=== PATIENT | female | born 1995 | race Caucasian/White ===

== ENCOUNTER 2023-09-25 14:00 | Emergency (ER) | payer OTHER, SELFPAY ==
[2023-09-25 14:05] VITALS: BP 147/96; PULSE 64; RESP 16; TEMP 36.9; O2SAT 95; BMI 32.3
--- NOTE | 2023-09-25 14:12 | XR_ITS ---
The [address] [address] Patient Name: KARINE JURADO MRN: [id number] date: 1995 Sex: F Assigned Patient Location: ER Current Patient Location: ER Accession/Order Number: [id number] Exam Date: 09/25/2023 14:58 Report Date: 09/25/2023 15:13 At the request of: NAHUN GOODMAN Procedure: XR lumbar spine 2-3V EXAMINATION: XR lumbar spine 2-3V HISTORY: pain COMPARISON: No relevant comparison available. FINDINGS: BONES: Normal. No significant spondylosis, scoliosis, fracture, or visible bony lesion. DISC SPACES: Normal. No significant disc height narrowing, subluxation, or endplate abnormality. PARASPINOUS: Negative. No paraspinous abnormality is seen. OTHER: Negative. XR/XR lumbar spine 2-3V IMPRESSION: No acute radiographic abnormality Electronically authenticated by: CHIOMA KRISHNA Date: 09/25/2023 15:13
[2023-09-25 15:08] LABS: Bilirubin Urine NEGATIVE (NEGATIVE); Blood Urine NEGATIVE (NEGATIVE); Clarity Urine CLEAR (CLEAR); Color Urine LT. YELLOW (YELLOW); Glucose Urine UA NEGATIVE (NEGATIVE); Ketones Urine NEGATIVE (NEGATIVE); Leukocyte Esterase Urine SMALL (NEGATIVE); Nitrite Urine NEGATIVE (NEGATIVE); Protein Urine NEGATIVE (NEG/TRACE); Specific Gravity Urine <=1.005 (1.005-1.025); Urobilinogen Urine 0.2 EU/dL (0.2-1.0); pH Urine 6.5 (5.0-9.0)
[2023-09-25 15:11] LABS: HCG Qualitative Urine* NEGATIVE (NEGATIVE)
[2023-09-25 15:24] LABS: Bacteria Urine TRACE #/HPF (NONE SEEN); Cast Seen? NONE SEEN #/LPF (NONE SEEN); Crystals Seen? None Seen #/HPF (None Seen); Mucus Urine NONE SEEN (NONE SEEN); RBC Urine 0-2 #/HPF (0-2); Squamous Epithelial Cell Urine FEW #/LPF (NONE/RARE)
[2023-09-25] MEDS: KETOROLAC TROMETHAMINE 60 MG/2 ML VIAL IM (15:33)
--- NOTE | 2023-09-25 15:50 | ED_ITS ---
HPI - Back Pain/Injury General Chief Complaint: Back Pain/Injury Stated Complaint: BACK PAIN/ FALL Time Seen by Provider: 09/25/23 14:06 Source: patient and family Mode of arrival: walk-in Limitations: no limitations History of Present Illness HPI Narrative: 27-year-old female presents with a chief complaint of tailbone injury. Patient states she slipped down cement stairs 2-3 days ago landing on her butt. She st ates she felt fine until the next day. She states she felt a pop yesterday and is now had difficulty sitting. She denies any loss of bowel or bladder function. She is ambulating well. No bruising or ecchymosis is noted on exam. She has tenderness to palpation initially to this area Related Data Previous Rx's Medication Instructions Recorded methocarbamol 500 mg tablet 500 mg PO Q8H PRN pain #14 tabs 09/25/23 Allergies Allergy/AdvReac Type Severity Reaction Status Date / Time No Known Drug Allergies Allergy Verified 09/25/23 14:05 Review of Systems ROS Narrative All Systems are negative except as noted/marked. PFSH PFSH Social History Smoking status: Current every day smoker Exam Narrative Exam Narrative: Nurses note and vital signs reviewed and patient is not hypoxic. General: The patient appears well and in no apparent distress. Patient is resting comfortably on cart. Skin: Warm, dry, no pallor noted. There is no rash noted. Head: Normocephalic, atraumatic Eye: Normal conjunctiva, no drainage, EOMI. PERRL Ears, Nose, Mouth, and Throat: oral mucosa is moist. Nares patent. Mouth without vesicles. Ear canals patent. Tm's without Erythema Back: Tailbone tenderness, no bruising or ecchymosis, non-tender, no CVA tenderness bilaterally to percussion. Musculoskeletal: The patient has no evidence of calf tenderness, no pitting edema, symmetrical pulses noted bilaterally Neurological: A&O x4, normal speech Psychiatric: Cooperative Constitutional Vital Signs, click to edit/add: Last Vital Signs Temp 98.5 F 09/25/23 14:05 Pulse 64 09/25/23 14:05 Resp 16 09/25/23 14:05 BP 147/96 H 09/25/23 14:05 Pulse Ox 95 09/25/23 14:05 Course Vital Signs Vital signs: Vital Signs Temperature 98.5 F 09/25/23 14:05 Pulse Rate 64 09/25/23 14:05 Respiratory Rate 16 09/25/23 14:05 Blood Pressure 147/96 H 09/25/23 14:05 Pulse Oximetry 95 09/25/23 14:05 Temperature 98.5 F 09/25/23 14:05 Pulse Rate 64 09/25/23 14:05 Respiratory Rate 16 09/25/23 14:05 Blood Pressure 147/96 H 09/25/23 14:05 Pulse Oximetry 95 09/25/23 14:05 MDM - Back Pain/Injury Medical Records Attestation: I reviewed the patient's medical records. Medical records narrative: Patient presented here chief complaint tailbone injury. No acute fracture noted on x-ray. Patient was treated as a lumbar strain, tailbone injury. She'll be discharged home with a prescription for Robaxin. Patient is given a work note for today as well. Medicated here in emergency room and Toradol. Patient showed no signs of cauda equina. Examination is benign. Patient told to use rest ice and heat therapy. I also suggested patient to lumbar stretching exercises as well as using a donut pillow to help sit to alleviate some of her tenderness was sitting. Patient presented here chief complaint of tailbone injury. No acute fracture noted on x-ray. Patient was treated as a lumbar strain, tailbone injury. She will be discharged home with a prescription for Robaxin. Patient was given a work note for today as well. Medicated here in the emergency room with Toradol. Patient was discharged patient showed no signs of cauda equina. Examination is benign. Patient told to use rest ice and heat therapy. I also suggested patient do lumbar stretching exercises as well as using a donut to help sit to alleviate some of her tenderness while sitting.Patient verbalized understanding agrees with plan of care Lab Data Attestation: I reviewed the patient's lab results. Labs: Lab Results 09/25/23 Range/Units 14:53 Urine Color Lt. yellow (YELLOW) Urine Clarity Clear (CLEAR) Urine pH 6.5 (5.0-9.0) Ur Specific [place] <=1.005 A (1.005-1.025) Urine Protein Negative (NEG/TRACE) mg/dL Urine Glucose (UA) Negative (NEGATIVE) mg/dL Urine Ketones Negative (NEGATIVE) mg/dL Urine Occult Blood Negative (NEGATIVE) Urine Nitrite Negative (NEGATIVE) Urine Bilirubin Negative (NEGATIVE) Urine Urobilinogen 0.2 (0.2-1.0) EU/dL Ur Leukocyte Esterase Small A (NEGATIVE) Urine RBC 0-2 (0-2) #/HPF Urine WBC 2-5 A (NONE SEEN) #/HPF Ur Squamous Epith Cells Few A (NONE/RARE) #/LPF Urine Crystals None seen (None Seen) #/HPF Urine Bacteria Trace A (NONE SEEN) #/HPF Urine Casts None seen (NONE SEEN) #/LPF Urine Mucus None seen (NONE SEEN) Urine HCG, Qual Negative (NEGATIVE) Imaging Data lumbar: Radiologist's impression: ITS Impressions Lumbar Spine X-Ray 09/25/23 14:12 IMPRESSION: No acute radiographic abnormality Electronically authenticated by: CHIOMA KRISHNA Date: 09/25/2023 15:13 Discharge Plan Discharge Chief Complaint: Back Pain/Injury Clinical Impression: Strain of lumbar region, Tailbone injury Patient Disposition: Home, Self-Care Time of Disposition Decision: 15:38 Condition: Good Prescriptions / Home Meds: New methocarbamol 500 mg tablet 500 mg PO Q8H PRN (Reason: pain) Qty: 14 0RF Instructions: Coccyx Injury (ED), Low Back Strain (ED), Lower Back Exercises (ED) Stand Alone Forms: Portal Instructions Referrals: Physician,Non-Staff, MD [Primary Care Provider] - 1 week
== END 2023-09-25 15:53 | disposition home or self-care (01) ==
PROVIDERS: Physician Assistant; Emergency Provider Emergency Medicine
DX: S39.92XA Unspecified injury of lower back, initial encounter (principal); S39.012A Strain of muscle, fascia and tendon of lower back, initial encounter; W10.9XXA Fall (on) (from) unspecified stairs and steps, initial encounter; F17.210 Nicotine dependence, cigarettes, uncomplicated
CPT/HCPCS: 72100; 81001; 84703; 96372; 99285; J1885

== ENCOUNTER 2024-07-22 10:01 | Emergency (ER) | payer MEDICAID, SELFPAY ==
[2024-07-22 10:03] VITALS: BP 141/93; PULSE 82; TEMP 37.1; O2SAT 100; BMI 36.0
[2024-07-22 10:16] VITALS: O2SAT 100
--- OUTSIDE RECORDS SUMMARY | 2024-07-22 10:20 | XMS_ITS | CCD ---
Author Organization [facility] Team Providers Care Manager Maritime Name Role Phone No, Physician Unavailable Unavailable QUAN RAMSEY Unavailable Unavailable NO, PHYSICIAN Unavailable Unavailable No, Physician Primary Care Provider Unavailabl e NO, PHYSICIAN Primary Care Unavailable CHIOMA CHADWICK Attending Unavailable NO, PHYSICIAN Primary Care Unavailable CHIOMA BOOTHE Attending Unavailable NO, PHYSICIAN Primary Care Unavailable ALINE MILLER Attending Unavaila ble NO, PHYSICIAN Primary Care Unavailable DAMIEN OROZCO Attending Unavailab le Medications Current Medications Medication Drug Class(es) Dates Sig (Normalized) Sig (Original) acetaminophen 325 mg oral tablet (8 sources) take 2 tablets by mouth every six hours as needed acetaminophen (TYLENOL) 325 MG tablet Take 650 mg by mouth every 6 (six) hours as needed for pain. 0 Active blood pressure monitor Kit (5 sources) Start: 01-30-2016 blood pressure monitor Kit 1 each by Miscellaneous route daily. 1 each 0 01/30/2016 Active Blood Pressure Monitor Kit (3 sources) Start: 01-30-2016 blood pressure monitor Kit 1 each by Miscellaneous route daily. 1 each 0 01/30/2016 Active cefdinir 300 mg oral capsule (1 source) Cephalosporin Antibacterial Start: 01-03-2019 End: 01-13-2019 take 1 capsule by mouth twice daily cefdinir (OMNICEF) 300 MG capsule Take 1 (one) capsule (300 mg total) by mouth 2 (two) times a day for 10 days . 20 capsule 0 01/03/2019 01/13/2019 Active docusate sodium 100 mg oral capsule (2 sources) Start: 08-21-2017 End: 08-31-2017 take 1 capsule by mouth twice daily as needed docusate sodium (COLACE) 100 MG capsule Take 1 (one) capsule (100 mg total) by mouth 2 (two) times a day as needed. 60 capsule 2 08/21/2017 08/31/2017 Active doxycycline hyclate 100 mg oral tablet (1 source) Tetracycline-class Drug Start: 11-27-2019 End: 12-04-2019 take 1 tablet by mouth twice daily doxycycline hyclate (VIBRA-TABS) 100 MG tablet Take 1 (one) tablet (100 mg total) by mouth 2 (two) times a day for 7 days . 14 tablet 0 11/27/2019 12/04/2019 Active hydrocortisone 10 mg/ml / neomycin 3.5 mg/ml / polymyxin b [id number] unt/ml otic suspension (1 source) Aminoglycoside Antibacterial, Polymyxin-class Antibacterial, Corticosteroid Start: 01-03-2019 End: 01-13-2019 neomycin-polymyxin -hydrocortisone (CORTISPORIN) otic suspension Administer 4 (four) drops into the left ear 4 (four) times a day for 10 days . 10 mL 0 01/03/2019 01/13/2019 Active labetalol hydrochloride 200 mg oral tablet (10 sources) beta-Adrenergic Elyssa Start: 01-03-2019 End: 02-02-2019 labetalol (NORMODYNE) 200 MG tablet Take 2.5 (two and a half) tablets (500 mg total) by mouth 2 (two) times a day . 150 tablet 0 01/03/2019 Active Start: 01-23-2016 End: 01-03-2020 labetalol (NORMODYNE) 200 MG tablet Take 2.5 tablets (500 mg total) by mouth every 12 (twelve) hours. 75 tablet 1 01/23/2016 01/03/2020 Active End: 01-03-2019 labetalol (NORMODYNE) 200 MG tablet Indications: high blood pressure Take 500 mg by mouth 2 (two) times a day ReasonsHypertension. 0 01/03/2019 Discontinued levoFLOXacin 5 mg/ml ophthalmic solution (1 source) Quinolone Antimicrobial Start: 11-27-2019 levoFLOXacin (QUIXIN ) 0.5 % ophthalmic solution Administer 1 (one) drop to the right eye every 2 (two) hours While awake for 2 days, then every 4 hours while awake for 5 days . 5 mL 0 11/27/2019 Active Start: 11-27-2019 levoFLOXacin ( QUIXIN) 0.5 % ophthalmic solution Administer 1 (one) drop to the right eye every 2 (two) hours While awake for 2 days, then every 4 hours while awake for 5 days . 5 mL 0 11/27/2019 Active metroNIDAZOLE 500 mg oral tablet (1 source) Nitroimidazole Antimicrobial Start: 11-23-2018 End: 11-30-2018 take 1 tablet by mouth twice daily at mealtime metroNIDAZOLE (FLAGYL) 500 MG tablet Take 1 (one) tablet (500 mg total) by mouth 2 (two) times a day with meals for 7 days . 14 tablet 0 11/23/2018 11/30/2018 Active naproxen 500 mg delayed release oral tablet (1 source) Nonsteroidal Anti-inflammatory Drug Start: 02-07-2018 End: 02-14-2018 take 1 tablet by mouth twice daily at mealtime naproxen (EC NAPROSYN) 500 MG EC tablet Take 1 (one) tablet (500 mg total) by mouth 2 (two) times a day with meals for 7 days. 14 tablet 0 02/07/2018 02/14/2018 Active omeprazole 40 mg delayed release oral capsule (2 sources) Proton Pump Inhibitor Start: 07-19-2017 End: 08-18-2017 take 1 capsule by mouth once daily omeprazole (PRILOSEC) 40 MG capsule Take 1 (one) capsule (40 mg total) by mouth daily. 30 capsule 0 07/19/2017 08/18/2017 Active Completed/Discontinued Medications Medication Drug Class(es) Dates Sig (Normalized) Sig (Original) acetaminophen 325 mg / HYDROcodone bitartrate 5 mg oral tablet (9 sources) Opioid Agonist Start: 02-07-2018 End: 02-07-2018 HYDROcodone-acetam inophen (NORCO) 5-325 mg per tablet 1 tablet Start: 08-21-2017 End: 08-21-2017 take 2 tablets by mouth every twenty-four hours HYDROcodone-acetaminophen (NORCO) 5-325 mg per tablet 2 tablet 2 tablet, Oral, Once as needed, Pain, Starting 08/21/17 at 0856, For 1 dose, PACU (only), [] While in PACU when tolerating orals. [] Use oral route first, if tolerated. Given 08/21/2017 09:29 EST 2 tablets Start: 07-19-2017 End: 01-03-2019 take 1 tablet by mouth every six hours as needed HYDROcodone-acetaminophen (NORCO) 5-325 mg per tablet Take 1 (one) tablet by mouth every 6 (six) hours as needed. 15 tablet 0 07/19/2017 01/03/2019 Discontinued acetaminophen 325 mg / oxyCODONE hydrochloride 5 mg oral tablet (6 sources) Opioid Agonist Start: 08-28-2017 End: 01-03-2019 take 1 tablet by mouth every six hours as needed for pain oxyCODONE-acetaminophen (PERCOCET) 5-325 mg per tablet Indications: Acute post-operative pain Take 1 (one) tablet by mouth every 6 (six) hours as needed for pain. 12 tablet 0 08/28/2017 01/03/2019 Discontinued Start: 08-21-2017 End: 08-31-2017 take 1 tablet by mouth every four hours oxyCODONE-acetaminophen (PERCOCET) 5-325 mg per tablet Take 1 (one) tablet by mouth every 4 (four) hours as needed. 40 tablet 0 08/21/2017 08/28/2017 Discontinued azithromycin (3 sources) Macrolide Antimicrobial Start: 01-03-2019 End: 01-03-2019 azithromycin (ZITHROMAX) tablet 1,000 mg Start: 08-28-2017 End: 09-01-2017 take 1 tablet by mouth once daily azithromycin (ZITHROMAX) 250 MG tablet Take 1 (one) tablet (250 mg total) by mouth daily for 4 days. 4 tablet 0 08/28/2017 09/01/2017 Active benzonatate 100 mg oral capsule (4 sources) Non-narcotic Antitussive Start: 08-28-2017 End: 01-03-2019 take 1 capsule by mouth three times daily as needed for cough benzonatate (TESSALON) 100 MG capsule Take 1 (one) capsule (100 mg total) by mouth 3 (three) times a day as needed for cough. 10 capsule 0 08/28/2017 01/03/2019 Discontinued calcium chloride 0.0014 meq/ml / potassium chloride 0.004 meq/ml / sodium chloride 0.103 meq/ml / sodium lactate 0.028 meq/ml injectable solution (1 source) Start: 08-21-2017 End: 08-21-2017 take 25 mL intravenous route every hour lactated Ringers infusion 25 mL/hr, Intravenous, Continuous, Starting Thu08/21/17 at 0645, Pre-Procedure New Bag 08/21/2017 06:31 EST 25 mL/hr 25 mL/hr dicyclomine hydrochloride 10 mg oral capsule (1 source) Anticholinergic Start: 11-23-2018 End: 11-23-2018 dicyclomine (BENTYL) capsule 20 mg 0.4 ml enoxaparin sodium 100 mg/ml prefilled syringe (1 source) Low Molecular Weight Heparin Start: 08-21-2017 End: 08-21-2017 enoxaparin (LOVENOX) syringe 40 mg 40 mg, Subcutaneous, Once, 08/21/17 at 0645, For 1 dose, Pre-Procedure, Administer in abdomen unless otherwise directed by prescriber. Notify physician if patient refuses. Given 08/21/2017 07:17 EST 40 mg 50 ml fentaNYL 0.05 mg/ml injection (1 source) Opioid Agonist Start: 08-27-2017 End: 08-27-2017 fentaNYL (SUBLIMAZE) injection 50 mcg 50 mcg, Intravenous, Once, Casie 08/27/17 at 2330, For 1 dose Given 08/27/2017 23:29 EST 50 mcg Start: 08-27-2017 End: 08-27-2017 fentaNYL (SUBLIMAZE) injecti on 50 mcg 50 mcg, Intravenous, Once, Casie 08/27/17 at 2330, For 1 dose Given 08/27/2017 23:29 EST 50 mcg iopamidol (1 source) Radiographic Contrast Agent Start: 08-27-2017 End: 08-28-2017 iopamidol (ISOVUE-370) 76 % injection 75 mL 75 mL, Intravenous, Once in imaging, contrast, Starting Casie 08/27/17 at 2320, For 1 dose Contrast Administered 08/28/2017 00:03 EST 75 mL 1 ml ketorolac tromethamine 30 mg/ml injection (3 sources) Nonsteroidal Anti-inflammatory Drug, Cyclooxygenase Inhibitor Start: 11-23-2018 End: 11-23-2018 ketorolac (TORADOL) injection 15 mg Start: 08-21-2017 End: 08-21-2017 take 30 mg intravenous route every twenty-four hours ketorolac (TORADOL) injection 30 mg 30 mg, Intravenous, Once as needed, mild pain, Starting 08/21/17 at 0856, For 1 dose, PACU (only), [] Ketorolac (TORADOL) has an automatic stop date of 48 hours. Given 08/21/2017 09:09 EST 30 mg Start: 07-19-2017 End: 07-19-2017 ketorolac (TORADOL) injectio n 15 mg 15 mg, Intravenous, Once, 07/19/17 at 2005, For 1 dose Given 07/19/2017 20:16 EST 15 mg 10 ml lidocaine hydrochloride 10 mg/ml injection (1 source) Antiarrhythmic, Amide Local Anesthetic Start: 08-21-2017 End: 08-21-2017 lidocaine 1% (XYLOCAINE) 10 mg/mL (1 %) injection 0.2 mL 0.2 mL, Intradermal, Once, 08/21/17 at 0645, For 1 dose, Pre-Procedure, Around site prior to IV insertion. Given 08/21/2017 06:05 EST 0.2 mL Start: 08-21-2017 End: 08-21-2017 lidocaine 1% (XYLOCAINE) 10 mg/mL (1 %) injection 0.2 mL 0.2 mL, Intradermal, Once, 08/21/17 at 0645, For 1 dose, Pre-Procedure, Around site prior to IV insertion. Given 08/21/2017 06:05 EST 0.2 mL 1 ml morphine sulfate 4 mg/ml cartridge (1 source) Opioid Agonist Start: 08-21-2017 End: 08-21-2017 morphine 2 mg 2 mg, Intravenous, Every 5 min PRN, Pain, Starting Thu08/21/17 at 0856, For 5 doses, PACU (only), [] Give if fentanyl not effective or not ordered. [] Do not give more than 10 mg total. Given 08/21/2017 09:10 EST 2 mg osmotic 24 hr NIFEdipine 30 mg extended release oral tablet (3 sources) Dihydropyridine Calcium Channel Elyssa Start: 01-24-2016 End: 08-21-2017 take 1 tablet by mouth once daily NIFEdipine (PROCARDIA XL) 30 MG 24 hr tablet Take 30 mg by mouth daily. 1 01/24/2016 08/21/2017 Suspended 2 ml ondansetron 2 mg/ml injection (9 sources) Serotonin-3 Receptor Antagonist Start: 08-27-2017 End: 08-27-2017 ondansetron (ZOFRAN) injection 4 mg 4 mg, Intravenous, Once, Casie 08/27/17 at 2330, For 1 dose Given 08/27/2017 23:29 EST 4 mg Start: 07-19-2017 End: 07-19-2017 ondansetron (ZOFRAN) injecti on 4 mg 4 mg, Intravenous, Once, 07/19/17 at 2005, For 1 dose Given 07/19/2017 20:15 EST 4 mg Start: 07-19-2017 End: 01-03-2019 take 1 tablet by mouth every eight hours as needed ondansetron (ZOFRAN, HYDROCHLORIDE,) 4 MG tablet Take 1 (one) tablet (4 mg total) by mouth every 8 (eight) hours as needed for nausea. 9 tablet 0 07/19/2017 01/03/2019 Discontinued sodium chloride (3 sources) Start: 11-23-2018 End: 11-23-2018 sodium chloride (PF) (NS) fl ush 5 mL Start: 02-07-2018 End: 02-07-2018 sodium chloride (PF) (NS) fl ush 5 mL Start: 08-27-2017 End: 08-28-2017 sodium chloride 0.9% (NS) bobby kristian 1,000 mL 1,000 mL, Intravenous, at 1,000 mL/hr, Once, [facility] 08/27/17 at 2220, For 1 dose New Bag 08/27/2017 22:59 EST 1,000 mL 1000 mL/hr sulfamethoxazole 800 mg / trimethoprim 160 mg oral tablet (2 sources) Dihydrofolate Reductase Inhibitor Antibacterial, Sulfonamide Antimicrobial Start: 02-07-2018 End: 02-07-2018 sulfamethoxazole-trimethopri m (BACTRIM DS,SEPTRA DS) 800-160 mg per tablet 1 tablet Start: 02-07-2018 End: 02-14-2018 take 1 tablet by mouth twice daily sulfamethoxazole-trimethoprim (BACTRIM DS,SEPTRA DS) 800-160 mg per tablet Take 1 (one) tablet by mouth 2 (two) times a day for 7 days. 14 tablet 0 02/07/2018 02/14/2018 Active Problems Active Problems Problem Classification Problem Date Documented Date Episodic/Chronic Bacterial infection; unspecified site (3 sources) Other specified bacterial agents as the cause of diseases classified elsewhere; Translations: [Chlamydial infection] Onset: 11-23-2018 Episodic Essential hypertension (9 sources) Hypertensive disorder; Translations: [High blood pressure] Onset: 03-05-2016 03-05-2016 Chronic Inflammation; infection of eye (except that caused by tuberculosis or sexually transmitteddisease) (1 source) Acute conjunctivitis of right eye; Translations: [Acute conjunctivitis of right eye, unspecified acute conjunctivitis type] Other ear and sense organ disorders (1 source) Unspecified acute noninfective otitis externa, left ear; Translations: [Acute otitis externa of left ear, unspecified type] Episodic Other nutritional; endocrine; and metabolic disorders (8 sources) Obesity; Translations: [Adiposity] Onset: 12-27-2014 01-10-2016 Chronic Otitis media and related conditions (1 source) Recurrent acute otitis media; Translations: [Recurrent acute serous otitis media of both ears] Episodic Skin and subcutaneous tissue infections (4 sources) Abscess of abdominal wall; Translations: [Cutaneous abscess of abdominal wall] Onset: 02-07-2018 Episodic Unclassified (8 sources) Tobacco user; Translations: [Tobacco abuse] 09-02-2015 Chronic Past or Other Problems Problem Classification Problem Date Documented Date Episodic/Chronic Biliary tract disease (12 sources) Biliary calculus; Translations: [Gallstone] Onset: 08-11-2017 08-11-2017 Episodic Fracture of lower limb (16 sources) Fracture of ankle; Translations: [Closed fracture of ankle] Onset: 09-02-2015 Resolved: 11-26-2015 11-26-2015 Episodic Hypertension complicating ; childbirth and the puerperium (8 sources) Pre-eclampsia; Translations: [Preeclampsia] Onset: 01-10-2016 01-10-2016 Episodic Inflammatory diseases of female pelvic organs (20 sources) Endometritis; Translations: [Female genital tract infection] Onset: 05-14-2015 Resolved: 03-05-2016 03-05-2016 Episodic Nausea and vomiting (1 source) Nausea and vomiting Episodic Normal and/or delivery (16 sources) Normal ; Translations: [] Onset: 09-02-2015 Resolved: 01-30-2016 01-30-2016 Episodic Other circulatory disease (16 sources) Elevated blood pressure; Translations: [Elevated blood pressure] Onset: 01-10-2016 Resolved: 03-05-2016 03-05-2016 Episodic Residual codes; unclassified (3 sources) H/O: section; Translations: [S/P section] Onset: 01-13-2016 01-13-2016 Episodic Unclassified (9 sources) H/O: anticoagulant therapy; Translations: [H/O: section] Onset: 09-02-2015 Resolved: 11-26-2015 11-26-2015 Episodic Unclassified (8 sources) depression; Translations: [ depression] Onset: 01-30-2016 01-30-2016 Episodic Unclassified (10 sources) Patient encounter status; Translations: [Preoperative examination] Onset: 09-02-2015 Resolved: 11-26-2015 10-29-2015 Unclassified (3 sources) Preprocedural examination done; Translations: [Preoperative examination] Onset: 09-02-2015 Resolved: 10-29-2015 10-29-2015 Results Test Name Value Interpretation Reference Range Facility [facility] 11-23-2018 Anion gap molar conc 15 mmol/L 10 - 20 mmol/L [facility] Calcium mass conc 9.1 mg/dL 8.4 - 10.2 mg/dL [facility] Chloride molar conc 105 mmol/L 98 - 108 mmol/L [facility] Creatinine mass conc 0.89 mg/dL 0.4 - 1 .1 mg/dL [facility] GFR/1.73 sq M predicted among non-blacks MDRD vol rate/area (S/P/Bld) The eGFR should be used for monitoring renal function only and not for medication dosing. [facility] GFR/1.73 sq M.predicted CKD-EPI vol rate/area (S/P/Bld) 92 >=60 mL/min/1.73 m2 [facility] Glucose mass conc 114 mg/dL High 65 - 99 mg/dL [facility] HCO3 molar conc 24 mmol/L 21 - 32 mmol/L [facility] Interpretation and review of laboratory results Abnormal [facility] Potassium molar conc 3.8 mmol/L 3.5 - 5 .1 mmol/L [facility] Sodium molar conc 140 mmol/L 135 - 145 mmol/L [facility] Urea nitrogen mass conc 7 mg/dL Low 8 - 25 mg/dL [facility] Urea nitrogen/Creatinine mass ratio 7.9 mg/mg Low [facility] CBC WITH AUTO DIFFERENTIALon 11-23-2018 Basophils #/vol (Bld) 0.05 10*3/uL [facility] Basophils/100 WBC (Bld) 0.5 % [facility] Eosinophils #/vol (Bld) 0.21 10*3/uL [facility] Eosinophils/100 WBC (Bld) 2.0 % [facility] Erythrocyte distribution width Entitic volume (RBC) 16.1 % High 11.6 - 14.8 % [facility] Hematocrit Volume Fraction (Bld) 40.0 % 36 - 46 % [facility] Hemoglobin mass conc (Bld) 12.9 g/dL 12 - 16 g/dL [facility] Immature granulocytes #/vol (Bld) 0.02 10*3/uL [facility] Immature granulocytes/100 WBC (Bld) 0.20 % [facility] Comment on above: The IG parameter is the percentage of metamyelocytes, myelocytes, and promyelocytes. Interpretation and review of laboratory results Abnormal [facility] Lymphocytes #/vol (Bld) 3.61 10*3/uL [facility] Lymphocytes/100 WBC (Bld) 34.1 % [facility] MCH Entitic mass (RBC) 28.2 pg 26 - 34 pg [facility] MCHC mass conc (RBC) 32.3 g/dL 31 - 37 g/dL [facility] MCV Entitic volume (RBC) 87.3 fL 80 - 100 fL [facility] Monocytes #/vol (Bld) 0.62 10*3/uL [facility] Monocytes/100 WBC (Bld) 5.9 % [facility] Neutrophils #/vol (Bld) 6.08 10*3/uL [facility] Neutrophils/100 WBC (Bld) 57.3 % [facility] Nucleated RBC #/vol (Bld) 0.00 10*3/uL [facility] Nucleated RBC/100 WBC Ratio (Bld) 0.0 % [facility] Platelet mean volume Entitic volume (Bld) 11.3 fL 9 - 15.5 fL [facility] Platelets #/vol (Bld) 233 10*3/uL [facility] RBC #/vol (Bld) 4.58 [facility]*6[facility]Bld) 10.59 10*3/uL [facility] al[facility] ABDOMEN PELVIS WITH IV CO NTRAST ONLYon 11-23-2018 CT ABDOMEN PELVIS WITH IV CONTRAST ONLY CLINICAL HISTORY: Abdominal pain. EXAMINATION: ENHANCED CT SCAN OF THE ABDOMEN AND PELVIS: 11/23/2018. COMPARISON: Enhanced CT scan of the abdomen and pelvis: 08/27/[address] [facility]. TECHNIQUE: 3 mm axial images from lung bases through ischial tuberosities following administration of intravenous contrast were obtained. No oral contrast was utilized. Sagittal, coronal reconstructions were performed. 75 mL of Isovue-370 was utilized as intravenous contrast. Dose reduction techniques were achieved by using automated exposure control and/or adjustment of mA and/or kV according to patient size and/or use of iterative reconstruction technique. FINDINGS: There are no focal abnormalities of the visualized lung bases. The visualized cardiac, posterior mediastinal structures appear normal. CT ABDOMEN: Liver, spleen, pancreas, adrenal glands, kidneys appear normal. The patient is status post cholecystectomy. The abdominal aorta has normal caliber. There is slightly distended stomach. The small and large bowel loops are of normal caliber. There is a normal-appearing appendix. CT PELVIS: The bladder, uterus, ovaries appear normal. There is no ureterolithiasis. There is no pelvic, retroperitoneal adenopathy. There are no focal fluid collections. The visualized osseous structures demonstrate no gross abnormalities. IMPRESSION: 1. No acute process in the abdomen or pelvis to explain patient's symptoms. 2. Previous cholecystectomy. 3. Normal appendix. 4. No nephro or ureterolithiasis. [employer] Workstation ID: [id number] Dictated by: YOAN PALOMARES on ThuNov 23, 2018 1:37:16 AM EDT Transcribed by: MELVI ROA on ThuNov 23, 2018 2:42:54 AM EDT Finalized by: YOAN PALOMARES on ThuNov 23, 2018 2:45:28 AM EDT Normal [facility] Comment on above: Order Comment: Reaso n for exam?:abd pain Injury/Trauma or Illness?:Illness/Other How long have you had these symptoms (acute/chronic)?:Acute Type of Exam?:Initial Additional signs and symptoms?:abd pain CT Abdomen Pelvis With IV Co ntrast Onlyon 11-23-2018 1. No acute process in the abdomen or pelvis to explain patient's symptoms. 2. Previous cholecystectomy. 3. Normal appendix. 4. No nephro or ureterolithiasis. [employer] Workstation ID: [id number] [facility] CLINICAL HISTORY: Abdominal pain. EXAMINATION: ENHANCED CT SCAN OF THE ABDOMEN AND PELVIS: 11/23/2018. COMPARISON: Enhanced CT scan of the abdomen and pelvis: 08/27/[address] [facility]. TECHNIQUE: 3 mm axial images from lung bases through ischial tuberosities following administration of intravenous contrast were obtained. No oral contrast was utilized. Sagittal, coronal reconstructions were performed. 75 mL of Isovue-370 was utilized as intravenous contrast. Dose reduction techniques were achieved by using automated exposure control and/or adjustment of mA and/or kV according to patient size and/or use of iterative reconstruction technique. FINDINGS: There are no focal abnormalities of the visualized lung bases. The visualized cardiac, posterior mediastinal structures appear normal. CT ABDOMEN: Liver, spleen, pancreas, adrenal glands, kidneys appear normal. The patient is status post cholecystectomy. The abdominal aorta has normal caliber. There is slightly distended stomach. The small and large bowel loops are of normal caliber. There is a normal-appearing appendix. CT PELVIS: The bladder, uterus, ovaries appear normal. There is no ureterolithiasis. There is no pelvic, retroperitoneal adenopathy. There are no focal fluid collections. The visualized osseous structures demonstrate no gross abnormalities. [facility], Rad In [employer] - 11/23/2018 2:48 AM EDT CLINICAL HISTORY: Abdominal pain. EXAMINATION: ENHANCED CT SCAN OF THE ABDOMEN AND PELVIS: 11/23/2018. COMPARISON: Enhanced CT scan of the abdomen and pelvis: 08/27/[address] [facility]. TECHNIQUE: 3 mm axial images from lung bases through ischial tuberosities following administration of intravenous contrast were obtained. No oral contrast was utilized. Sagittal, coronal reconstructions were performed. 75 mL of Isovue-370 was utilized as intravenous contrast. Dose reduction techniques were achieved by using automated exposure control and/or adjustment of mA and/or kV according to patient size and/or use of iterative reconstruction technique. FINDINGS: There are no focal abnormalities of the visualized lung bases. The visualized cardiac, posterior mediastinal structures appear normal. CT ABDOMEN: Liver, spleen, pancreas, adrenal glands, kidneys appear normal. The patient is status post cholecystectomy. The abdominal aorta has normal caliber. There is slightly distended stomach. The small and large bowel loops are of normal caliber. There is a normal-appearing appendix. CT PELVIS: The bladder, uterus, ovaries appear normal. There is no ureterolithiasis. There is no pelvic, retroperitoneal adenopathy. There are no focal fluid collections. The visualized osseous structures demonstrate no gross abnormalities. IMPRESSION: 1. No acute process in the abdomen or pelvis to explain patient's symptoms. 2. Previous cholecystectomy. 3. Normal appendix. 4. No nephro or ureterolithiasis. [employer] Workstation ID: [id number] [facility] Hepatic Function Panel (LFT) on 11-23-2018 Albumin mass conc 4.1 g/dL 3.2 - 5.2 g/dL [facility] ALP enzyme act/vol 64 U/L 40 - 140 U/L [facility] ALT enzyme act/vol 21 U/L 0 - 40 U/L [facility] alth AST enzyme act/vol 19 U/L 0 - 45 U/L [facility] alth Bilirubin mass conc 0.2 mg/dL 0 - 1.3 mg/dL [facility] Bilirubin.conjugated mass conc mg/dL 0 - 0.4 mg/dL [facility] Protein mass conc 6.8 g/dL 6 - 8 g/dL [facility] Lipaseon 11-23-2018 Lipase enzyme act/vol 34 U/L 15 - 65 U/L [facility] Otheron 11-23-2018 Extra Tube Hold for add-ons. [facility] Comment on above: Auto resulted. Interpretation and review of laboratory results Normal [facility] WET PREPARATIONon 11-23-2018 Clue cells Wet prep Ql (Unsp spec) Possible Clue Cells Seen Abnormal No Clue Cells Seen [facility] Interpretation and review of laboratory results Abnormal [facility] T. vaginalis Wet prep Ql (Genital specimen) No Trichomonas Seen No Trichomonas Seen [facility] WBC Wet prep Ql (Unsp spec) Many WBC's Seen Abnormal No WBC's Seen [facility] Yeast Wet prep Ql (Genital specimen) No Yeast Seen No Yeast Seen [facility] Yeast.hyphae Wet prep Ql (Unsp spec) No Yeast with Hyphae Seen No Yeast with Hyphae Seen [facility] URINALYSISon 11-22-2018 Bacteria Auto Ql (U) Rare Abnormal None Seen /hpf [facility] Bilirubin Ql (U) Negative Negative [facility] th Clarity Refractometry automated Nom (U) Hazy Abnormal Clear [facility] Color Nom (U) Yellow Colorless, Yellow [facility] Epithelial cells.squamous Auto #/area (Urine sed) 5 High [facility] Glucose Automated test strip mass conc (U) Negative Negative mg/dL [facility] Hemoglobin Automated test strip Ql (U) Large Abnormal Negative [facility] Interpretation and review of laboratory results Abnormal [facility] Ketones mass conc (U) Negative Negative mg/dL [facility] Leukocyte esterase Automated test strip Ql (U) Moderate Abnormal Negative [facility] Mucus Auto #/area (Urine sed) Rare None Seen, Rare /lpf [facility] Nitrite Automated test strip Ql (U) Negative Negative [facility] pH (U) 6.0 [pH] [facility] Protein mass conc (U) Negative Negative mg/dL [facility] RBC Auto #/area (Urine sed) 1 [facility] Specific gravity Relative Density (U) 1.012 [facility] Urobilinogen mass conc (U) >=4.0 Abnormal <2.0 mg/dL [facility] WBC Auto #/area (Urine sed) 3 [facility] Microscopic examination is performed on all urinalysis samples and only positive findings are reported. The test for blood on the chemical analytic portion of urinalysis may also be positive due to hemoglobinuria and myoglobinuria and if red blood cells are present they are quantified by microscopic examination. [facility] Urine Pregnancyon 11-22-2018 HCG ( test) Ql (U) Negative Negative [facility] Interpretation and review of laboratory results Normal [facility] CBC Auto Differentialon 01-29 Basophils Auto #/vol (Bld) 0.05 K/mcL Invalid Interpretation Code 0.00 - 0.30 [facility] Basophils/100 WBC Auto (Bld) 0.6 % Invalid Interpretation Code [facility] Eosinophils 0.18 K/mcL Invalid Interpretation Code 0.00 - 0.50 [facility] Eosinophils/100 leukocytes 2.0 % Invalid Interpretation Code [facility] Erythrocyte distribution width Auto Entitic volume (RBC) 13.9 % Invalid Interpretation Code 11.6 - 14.8 % [facility] Erythrocytes (RBC) 4.79 M/mcL Invalid Interpretation Code 4.00 - 5.20 [facility] Hematocrit (HCT) 39.4 % Invalid Interpretation Code 36 - 46 % [facility] Hemoglobin mass conc (Bld) 12.8 g/dL Invalid Interpretation Code 12 - 16 g/dL [facility] Immature granulocytes #/vol (Bld) 0.04 K/mcL Invalid Interpretation Code 0.00 - 0.30 [facility] Immature granulocytes/100 WBC (Bld) 0.40 % Invalid Interpretation Code [facility] Comment on above: The IG parameter is the percentage of metamyelocytes, myelocytes, and promyelocytes. Lymphocytes 2.31 K/mcL Invalid Interpretation Code 0.90 - 4.00 [facility] Lymphocytes/100 leukocytes 25.5 % Invalid Interpretation Code [facility] MCH 26.7 pg Invalid Interpretation Code 26 - 34 pg [facility] MCHC mass conc (RBC) 32.5 g/dL Invalid Interpretation Code 31 - 37 g/dL [facility] MCV 82.3 fL Invalid Interpretation Code 80 - 100 fL [facility] Monocytes 0.63 K/mcL Invalid Interpretation Code 0.30 - 0.90 [facility] Monocytes/100 leukocytes 7.0 % Invalid Interpretation Code [facility] Neutrophils 5.85 K/mcL Invalid Interpretation Code 1.70 - 7.00 [facility] Neutrophils/100 WBC Auto (Bld) 64.5 % Invalid Interpretation Code [facility] Nucleated erythrocytes 0.00 K/mcL Invalid Interpretation Code 0.00 - 0.00 [facility] Nucleated erythrocytes/100 erythrocytes 0.0 % Invalid Interpretation Code [facility] Platelet mean volume (PMV) 12.2 fL Invalid Interpretation Code 9 - 15.5 fL [facility] Platelets 192 K/mcL Invalid Interpretation Code 150 - 400 [facility] WBC (Leukocytes) 9.06 K/mcL Invalid Interpretation Code 4.50 - 11.00 [facility] CBC w/ Diffon 02-07-2018 Creatinine The following orders were created for panel order CBC w/ Diff. Procedure Abnormality Status --------- ------ CBC Auto Differential[[id number]] Final result Please view results for these tests on the individual orders. Invalid Interpretation Code [facility] Chem 7on 02-07-2018 Anion gap 15 mmol/L Invalid Interpretation Code 10 - 20 mmol/L [facility] Bicarbonate (HCO3) 23 mmol/L Invalid Interpretation Code 21 - 32 mmol/L [facility] BUN/Creatinine Ratio 9.5 mg/mg Low 10.0 - 20.0 [facility] Chloride 102 mmol/L Invalid Interpretation Code 98 - 108 mmol/L [facility] Creatinine 0.63 mg/dL Invalid Interpretation Code 0.4 - 1.1 mg/dL [facility] eGFR (non-black) The eGFR should be used for monitoring renal function only and not for medication dosing. Invalid Interpretation Code [facility] eGFR (non-black) 128 mL/min/{1.73_m2} Invalid Interpretation Code >=60 [facility] Glucose mass conc 98 mg/dL Invalid Interpretation Code 65 - 99 mg/dL [facility] Interpretation and review of laboratory results Abnormal Invalid Interpretation Code [facility] Potassium molar conc 4.1 mmol/L Invalid Interpretation Code 3.5 - 5.1 mmol/L [facility] Sodium 136 mmol/L Invalid Interpretation Code 135 - 145 mmol/L [facility] Urea nitrogen 6 mg/dL Low 8 - 25 mg/dL [facility] Incision and drainageon 01-29 Incision and drainage Namita Florez PA-C 02/07/2018 7:58 PM Incision/Drainage Date/Time: 02/07/2018 7:58 PM Performed by: NAMITA FLOREZ Authorized by: CHIOMA CHADWICK Verbal consent: obtained Consent given by: patient Type: abscess Body area: trunk Location details: abdomen Anesthesia: local infiltration Anesthesia: Local Anesthetic: lidocaine 1% with epinephrine Anesthetic total: 3 mL Patient sedated: no Skin preparation: Betadine Scalpel size: 11 Incision type: single straight Incision depth: dermal Complexity: simple Drainage: purulent and bloody Drainage amount: scant Patient tolerance: Patient tolerated the procedure well with no immediate complications Invalid Interpretation Code [facility] Light Blue Topon 02-07-2018 Extra Tube Hold for add-ons. Invalid Interpretation Code [facility] Comment on above: Auto resulted. [place] Topon 02-07-2018 [place] Top Invalid Interpretation Code [facility] [place] Drawon 02-07-2018 Creatinine The following orders were created for panel order [place] Draw. Procedure Abnormality Status --------- ------ Gold Top[[id number]] Final result Light Blue Top[[id number]] Final result Moran Top[[id number]] Final result [place] Top[[id number]] Final result Please view results for these tests on the individual orders. Invalid Interpretation Code [facility] US ED-MUSCULOSKELETALon 01-29 US ED-MUSCULOSKELETAL Namita Florez PA-C 02/07/2018 7:58 PM US ED Musculoskeletal Date/Time: 02/07/2018 6:50 PM Performed by: NAMITA FLOREZ Authorized by: CHIOMA CHADWICK Procedure details: Procedural attestation: A teaching ultrasound was performed. The patient was made aware that no clinical decisions were made from this ultrasound Indications: abscess Transverse view: Visualized Longitudinal view: Visualized Comments: Fluid collection appreciated. Invalid [facility]ation [facility] An[facility] gap 16 mmol/L Invalid Interpretation Code 10 - 20 mmol/L [facility] Bicarbonate (HCO3) 24 mmol/L Invalid Interpretation Code 21 - 32 mmol/L [facility] BUN/Creatinine Ratio 8.3 mg/mg Low 10.0 - 20.0 [facility] Calcium 9.2 mg/dL Invalid Interpretation Code 8.4 - 10.2 mg/dL [facility] Chloride 103 mmol/L Invalid Interpretation Code 98 - 108 mmol/L [facility] Creatinine 0.72 mg/dL Invalid Interpretation Code 0.4 - 1.1 mg/dL [facility] eGFR (non-black) 120 mL/min/{1.73_m2} Invalid Interpretation Code >=60 [facility] eGFR (non-black) The eGFR should be used for monitoring renal function only and not for medication dosing. Invalid Interpretation Code [facility] Glucose 105 mg/dL High 65 - 99 mg/dL [facility] Potassium 4.2 mmol/L Invalid Interpretation Code 3.5 - 5.1 mmol/L [facility] Sodium 139 mmol/L Invalid Interpretation Code 135 - 145 mmol/L [facility] Urea nitrogen 6 mg/dL Low 8 - 25 mg/dL [facility] CBC Auto Differentialon 08-01 Basophils 0.06 K/mcL Invalid Interpretation Code 0.00 - 0.30 [facility] Basophils/100 leukocytes 0.7 % Invalid Interpretation Code [facility] Eosinophils 0.38 K/mcL Invalid Interpretation Code 0.00 - 0.50 [facility] Eosinophils/100 leukocytes 4.4 % Invalid Interpretation Code [facility] Erythrocytes (RBC) 4.87 M/mcL Invalid Interpretation Code 4.00 - 5.20 [facility] Erythrocytes (RBC) 0.00 K/mcL Invalid Interpretation Code 0.00 - 0.00 [facility] Hematocrit (HCT) 38.7 % Invalid Interpretation Code 36 - 46 % [facility] Hemoglobin (HGB) 12.7 g/dL Invalid Interpretation Code 12 - 16 g/dL [facility] IG Absolute 0.03 K/mcL Invalid Interpretation Code 0.00 - 0.30 [facility] IG Percent 0.30 % Invalid Interpretation Code [facility] Interpretation and review of laboratory results Abnormal Invalid Interpretation Code [facility] Lymphocytes 3.19 K/mcL Invalid Interpretation Code 0.90 - 4.00 [facility] Lymphocytes/100 leukocytes 37.0 % Invalid Interpretation Code [facility] MCH 26.1 pg Invalid Interpretation Code 26 - 34 pg [facility] MCHC 32.8 g/dL Invalid Interpretation Code 31 - 37 g/dL [facility] MCV 79.5 fL Low 80 - 100 fL [facility] Monocytes 0.59 K/mcL Invalid Interpretation Code 0.30 - 0.90 [facility] Monocytes/100 leukocytes 6.8 % Invalid Interpretation Code [facility] Neutrophils 4.38 K/mcL Invalid Interpretation Code 1.70 - 7.00 [facility] Neutrophils/100 leukocytes 50.8 % Invalid Interpretation Code [facility] Nucleated erythrocytes/100 erythrocytes 0.0 % Invalid Interpretation Code [facility] Platelet mean volume (PMV) 10.8 fL Invalid Interpretation Code 9 - 15.5 fL [facility] Platelets 274 K/mcL Invalid Interpretation Code 150 - 400 [facility] RDW-CA 13.9 % Invalid Interpretation Code 11.6 - 14.8 % [facility] WBC (Leukocytes) 8.63 K/mcL Invalid Interpretation Code 4.50 - 11.00 [facility] CBC w/ Diffon 08-28-2017 Creatinine The following orders were created for panel order CBC w/ Diff. Procedure Abnormality Status --------- ------ CBC Auto Differential[[id number]] Abnormal Final result Please view results for these tests on the individual orders. Invalid Interpretation Code [facility] Work Phone: CT Abdomen Pelvis With IV Co ntrast Onlyon 08-28-2017 CT Abdomen Pelvis With IV Contrast Only EXAMINATION: CT OF THE ABDOMEN AND PELVIS WITH CONTRAST 08/28/2017 TECHNIQUE: CT of the abdomen and pelvis was performed with the administration of intravenous contrast. Multiplanar reformatted images are provided for review. Dose modulation, iterative reconstruction, and/or weight based adjustment of the mA/kV was utilized to reduce the radiation dose to as low as reasonably achievable. COMPARISON: None. HISTORY: ORDERING SYSTEM PROVIDED HISTORY: abd pain, post op, fevers; TECHNOLOGIST PROVIDED HISTORY: Reason for Exam: abd pain oosing at suture site fever chills Illness/Other Acuity: Acute Type of Encounter: Initial Additional signs and symptoms: post op gb or FINDINGS: Lower Chest: The lung bases are clear and the heart size is normal. Organs: The liver, spleen, pancreas, adrenal glands and kidneys are normal. The gallbladder is surgically absent. There are few surgical clips. There is minimal low attenuation fluid in the gallbladder fossa measuring 3.8 cm by 1.5 cm. There are no bubbles of gas to suggest infected fluid collection. Bile ducts are not dilated. GI/Bowel: Mild to moderate stool load suggests constipation. Unopacified bowel loops are otherwise unremarkable. The appendix is normal. Pelvis: There is a 3.5 cm right ovarian cyst/dominant follicle. Uterus and ovaries are otherwise unremarkable. Urinary bladder is normal. Peritoneum/Retroperit oneum: There is no adenopathy, free air or free fluid. Bones/Soft Tissues: The patient is obese. There is mild edema in the flanks. There is mild edema with skin thickening in the umbilicus. There is a tiny fat containing umbilical hernia. No acute bone finding. Invalid Interpretation Code [employer] CT Abdomen Pelvis With IV Contrast Only Interface, Rad In INCIDE Speechq - 08/28/2017 12:34 AM EST EXAMINATION: CT OF THE ABDOMEN AND PELVIS WITH CONTRAST 08/28/2017 TECHNIQUE: CT of the abdomen and pelvis was performed with the administration of intravenous contrast. Multiplanar reformatted images are provided for review. Dose modulation, iterative reconstruction, and/or weight based adjustment of the mA/kV was utilized to reduce the radiation dose to as low as reasonably achievable. COMPARISON: None. HISTORY: ORDERING SYSTEM PROVIDED HISTORY: abd pain, post op, fevers; TECHNOLOGIST PROVIDED HISTORY: Reason for Exam: abd pain oosing at suture site fever chills Illness/Other Acuity: Acute Type of Encounter: Initial Additional signs and symptoms: post op gb or FINDINGS: Lower Chest: The lung bases are clear and the heart size is normal. Organs: The liver, spleen, pancreas, adrenal glands and kidneys are normal. The gallbladder is surgically absent. There are few surgical clips. There is minimal low attenuation fluid in the gallbladder fossa measuring 3.8 cm by 1.5 cm. There are no bubbles of gas to suggest infected fluid collection. Bile ducts are not dilated. GI/Bowel: Mild to moderate stool load suggests constipation. Unopacified bowel loops are otherwise unremarkable. The appendix is normal. Pelvis: There is a 3.5 cm right ovarian cyst/dominant follicle. Uterus and ovaries are otherwise unremarkable. Urinary bladder is normal. Peritoneum/Retroperit oneum: There is no adenopathy, free air or free fluid. Bones/Soft Tissues: The patient is obese. There is mild edema in the flanks. There is mild edema with skin thickening in the umbilicus. There is a tiny fat containing umbilical hernia. No acute bone finding. IMPRESSION: Evidence of recent cholecystectomy. There are expected postoperative changes in the umbilicus with skin thickening and fat stranding. There is no postoperative fluid collection. Tiny fat containing umbilical hernia. There is a small low-attenuation postoperative fluid collection in the gallbladder fossa. This is not unusual status post recent cholecystectomy. There are no bubbles of gas to suggest infected fluid collection. No significant free fluid in the abdomen/pelvis. 3.5 cm right ovarian cyst/ dominant follicle. Managing Incidental Adnexal Cystic Mass by CT or MRBenign cyst: Premenopausal (< or equal to 50 years if LMP unknown)< or equal to 5 cm: no follow up>5 cm: US in 6-12 weeks> or equal to 10 cm: US promptlyEarly postmenopausal (0-5 years after LMP)< or equal to 3 cm: no follow up3-5 cm: US in 6-12 weeks>5 cm: US promptlyLate postmenopausal< or equal to3 cm: no follow up>3 cm: US promptlyProbably benign cyst : {benign appearing except demonstrates one or more of the following - (a) angulated margin, (b) not round/oval shape, (c) not well imaged due to artifact or technical parameters (ex. noncontrast CT)}Premenopausal (< than or equal to 50 years if LMP unknown)< or equal to 3 cm: no follow up3-5 cm: US in 6-12 weeks>5 cm: US Early postmenopausal< or equal to 3 cm: no follow up>3 cm: US promptlyLate postmenopausal < or equal to 1 cm: no follow up>1 cm: USReference:Aundrea et al. Managing Incidental Findings on Abdominal CT: White Paper of the ACR Incidental Findings Committee. J Am Ning Radiol 2010;7:754-773 Workstation ID: [id number] Invalid Interpretation Code [employer] CT Abdomen Pelvis With IV Contrast Only Evidence of recent cholecystectomy. There are expected postoperative changes in the umbilicus with skin thickening and fat stranding. There is no postoperative fluid collection. Tiny fat containing umbilical hernia. There is a small low-attenuation postoperative fluid collection in the gallbladder fossa. This is not unusual status post recent cholecystectomy. There are no bubbles of gas to suggest infected fluid collection. No significant free fluid in the abdomen/pelvis. 3.5 cm right ovarian cyst/ dominant follicle. Managing Incidental Adnexal Cystic Mass by CT or MRBenign cyst: Premenopausal (< or equal to 50 years if LMP unknown)< or equal to 5 cm: no follow up>5 cm: US in 6-12 weeks> or equal to 10 cm: US promptlyEarly postmenopausal (0-5 years after LMP)< or equal to 3 cm: no follow up3-5 cm: US in 6-12 weeks>5 cm: US promptlyLate postmenopausal< or equal to3 cm: no follow up>3 cm: US promptlyProbably benign cyst : {benign appearing except demonstrates one or more of the following - (a) angulated margin, (b) not round/oval shape, (c) not well imaged due to artifact or technical parameters (ex. noncontrast CT)}Premenopausal (< than or equal to 50 years if LMP unknown)< or equal to 3 cm: no follow up3-5 cm: US in 6-12 weeks>5 cm: US Early postmenopausal< or equal to 3 cm: no follow up>3 cm: US promptlyLate postmenopausal < or equal to 1 cm: no follow up>1 cm: USReference:Aundrea et al. Managing Incidental Findings on Abdominal CT: White Paper of the ACR Incidental Findings Committee. J Am Ning Radiol 2010;7:754-773 Workstation ID: [id number] Invalid Interpretation Code [facility] Hepatic Function Panelon Alanine aminotransferase (ALT) 22 U/L Invalid Interpretation Code 0 - 40 U/L [facility] Albumin 3.7 g/dL Invalid Interpretation Code 3.2 - 5.2 g/dL [facility] Alkaline phosphatase (ALP) 67 U/L Invalid Interpretation Code 40 - 140 U/L [facility] Aspartate aminotransferase (AST) 17 U/L Invalid Interpretation Code 0 - 45 U/L [facility] Bilirubin (conjugated) mg/dL Invalid Interpretation Code 0 - 0.4 mg/dL [facility] Bilirubin (total) mg/dL Invalid Interpretation Code 0 - 1.3 mg/dL [facility] Protein 7.0 g/dL Invalid Interpretation Code 6 - 8 g/dL [facility] Lactic Acid, Plasmaon 2016 Interpretation and review of laboratory results Normal Invalid Interpretation Code [facility] Lactate 1.0 mmol/L Invalid Interpretation Code 0.6 - 2 mmol/L [facility] Lav[place] Topon 08-28-2017 Extra Tube Hold for add-ons. Invalid Interpretation Code [facility] POC Urine Pregnancyon 2016 Internal Control Pass Invalid Interpretation Code [facility] [employer] Phone: Interpretation and review of laboratory results Normal Invalid Interpretation Code [facility] Phone: Urine, test (choriogonadotropin presence) Negative Invalid Interpretation Code Negative [facility] Phone: Urine, specific gravity Invalid Interpretation Code 1.005 - 1.025 [facility] Phone: [place] Drawon 08-28-2017 Creatinine The following orders were created for panel order [place] Draw. Procedure Abnormality Status --------- ------ Urine Culture Moran Conta...[[id number]] Final result Please view results for these tests on the individual orders. Invalid Interpretation Code [facility] Phone: Creatinine The following orders were created for panel order [place] Draw. Procedure Abnormality Status --------- ------ [place] Top[[id number]] Final result [place] Top[[id number]] Final result Gold Top[[id number]] Final result [place] Top[[id number]] Final result Please view results for these tests on the individual orders. Invalid Interpretation Code [facility] Phone: Urinalysison 08-28-2017 Bilirubin, Urine Negative Invalid Interpretation Code Negative [facility] Blood, Urine Negative Invalid Interpretation Code Negative [facility] Interpretation and review of laboratory results Abnormal Invalid Interpretation Code [facility] Nitrite, Urine Negative Invalid Interpretation Code Negative [facility] RBCs, Urine 2 /hpf Invalid Interpretation Code 0 - 3 [facility] Squamous Epithelial 9 /hpf High 0 - 4 [facility] AB Urine, bacteria in sediment None Seen Invalid Interpretation Code None Seen /hpf [facility] Urine, clarity Clear Invalid Interpretation Code Clear [facility] Urine, color Yellow Invalid Interpretation Code Colorless, Yellow [facility] Urine, glucose presence Negative Invalid Interpretation Code Negative mg/dL [facility] Urine, ketones presence Negative Invalid Interpretation Code Negative mg/dL [facility] Urine, leukocyte esterase presence Negative Invalid Interpretation Code Negative [facility] Urine, pH 6.0 [pH] Invalid Interpretation Code 5.0 - 7.0 [facility] Urine, protein Negative Invalid Interpretation Code Negative mg/dL [facility] Urine, specific gravity 1.011 1 Invalid Interpretation Code 1.005 - 1.025 [facility] Urine, urobilinogen <2.0 Invalid Interpretation Code <2.0 mg/dL [facility] WBCs, Urine <1 Invalid Interpretation Code 0 - 5 /hpf [facility] Urinalysis Microscopic examination is performed on all urinalysis samples and only positive findings are reported. The test for blood on the chemical analytic portion of urinalysis may also be positive due to hemoglobinuria and myoglobinuria and if red blood cells are present they are quantified by microscopic examination. Invalid Interpretation Code [facility] Urine Culture [place] Container on 08-28-2017 Urine Culture [place] Container Invalid Interpretation Code [facility] XR Chest AP/PA and LATon XR Chest AP/PA and LAT Suspected left lower lobe airspace opacity, potentially atelectasis, pneumonia, or aspiration. Workstation ID: [id number] Invalid Interpretation Code [facility] XR Chest AP/PA and LAT EXAMINATION: TWO VIEWS OF THE CHEST 08/27/2017 11:09 pm COMPARISON: Chest radiograph 07/19/2017 HISTORY: ORDERING SYSTEM PROVIDED HISTORY: cough/fevers; TECHNOLOGIST PROVIDED HISTORY: Reason for Exam: cough/fevers Illness/Other Acuity: Acute Cancer History: unk Surgery, Radiation History: gallbladder removed 08/21/2017 Type of Encounter: Initial Additional signs and symptoms: pt c/o cough and fever, states one incision site opened up FINDINGS: Low lung volumes. Persistent elevation of the right hemidiaphragm. Suspected left lower lobe airspace opacity. Indistinct pulmonary vasculature likely due to central vascular crowding. No definite findings of pneumothorax or pleural effusion. Normal mediastinal, hilar, and cardiac contours. Cholecystectomy clips. No acute fracture. Invalid Interpretation Code IdeaString [facility] XR Chest AP/PA and LAT Interface, Rad [facility] - 08/28/2017 12:54 AM EST EXAMINATION: TWO VIEWS OF THE CHEST 08/27/2017 11:09 pm COMPARISON: Chest radiograph 07/19/2017 HISTORY: ORDERING SYSTEM PROVIDED HISTORY: cough/fevers; TECHNOLOGIST PROVIDED HISTORY: Reason for Exam: cough/fevers Illness/Other Acuity: Acute Cancer History: unk Surgery, Radiation History: gallbladder removed 08/21/2017 Type of Encounter: Initial Additional signs and symptoms: pt c/o cough and fever, states one incision site opened up FINDINGS: Low lung volumes. Persistent elevation of the right hemidiaphragm. Suspected left lower lobe airspace opacity. Indistinct pulmonary vasculature likely due to central vascular crowding. No definite findings of pneumothorax or pleural effusion. Normal mediastinal, hilar, and cardiac contours. Cholecystectomy clips. No acute fracture. IMPRESSION: Suspected left lower lobe airspace opacity, potentially atelectasis, pneumonia, or aspiration. Workstation ID: [id number] Invalid Interpretation Code IdeaString [facility] POC Glucoseon 08-21-2017 Glucose 89 mg/dL Invalid Interpretation Code 65 - 99 mg/dL [facility] POC Hematocriton 08-21-2017 Hematocrit (HCT) 41 % Invalid Interpretation Code 36 - 46 % [facility] Interpretation and review of laboratory results Normal Invalid Interpretation Code [facility] POC Hemoglobinon 08-21-2017 Hemoglobin (HGB) 13.9 g/dL Invalid Interpretation Code 12 - 16 g/dL [facility] POC , Urineon 08-21 Interpretation and review of laboratory results Normal Invalid Interpretation Code [facility] Urine, test (choriogonadotropin presence) Negative Invalid Interpretation Code Negative [facility] BMPon 07-19-2017 Anion gap 20 mmol/L Invalid Interpretation Code 10 - 20 mmol/L [facility] Bicarbonate (HCO3) 21 mmol/L Invalid Interpretation Code 21 - 32 mmol/L [facility] BUN/Creatinine Ratio 8.0 mg/mg Low 10.0 - 20.0 [facility] Calcium 9.4 mg/dL Invalid Interpretation Code 8.4 - 10.2 mg/dL [facility] Chloride 102 mmol/L Invalid Interpretation Code 98 - 108 mmol/L [facility] Creatinine 0.75 mg/dL Invalid Interpretation Code 0.4 - 1.1 mg/dL [facility] eGFR (non-black) 114 mL/min/{1.73_m2} Invalid Interpretation Code >=60 [facility] eGFR (non-black) The eGFR should be used for monitoring renal function only and not for medication dosing. Invalid Interpretation Code [facility] Glucose mass conc 128 mg/dL High 65 - 99 mg/dL [facility] Interpretation and review of laboratory results Abnormal Invalid Interpretation Code [facility] Potassium molar conc 4.5 mmol/L Invalid Interpretation Code 3.5 - 5.1 mmol/L [facility] Comment on above: Specimen slightly he molyzed. Sodium 138 mmol/L Invalid Interpretation Code 135 - 145 mmol/L [facility] Urea nitrogen 6 mg/dL Low 8 - 25 mg/dL [facility] CBC Auto Differentialon 07-01 Basophils Auto #/vol (Bld) 0.05 K/mcL Invalid Interpretation Code 0.00 - 0.30 [facility] Basophils/100 WBC Auto (Bld) 0.5 % Invalid Interpretation Code [facility] Eosinophils 0.18 K/mcL Invalid Interpretation Code 0.00 - 0.50 [facility] Eosinophils/100 leukocytes 1.7 % Invalid Interpretation Code [facility] Erythrocyte distribution width Auto Entitic volume (RBC) 13.9 % Invalid Interpretation Code 11.6 - 14.8 % [facility] Erythrocytes (RBC) 5.36 M/mcL High 4.00 - 5.20 [facility] Hematocrit (HCT) 42.4 % Invalid Interpretation Code 36 - 46 % [facility] Hemoglobin mass conc (Bld) 13.7 g/dL Invalid Interpretation Code 12 - 16 g/dL [facility] Immature granulocytes #/vol (Bld) 0.03 K/mcL Invalid Interpretation Code 0.00 - 0.30 [facility] Immature granulocytes/100 WBC (Bld) 0.30 % Invalid Interpretation Code [facility] Comment on above: The IG parameter is the percentage of metamyelocytes, myelocytes, and promyelocytes. Lymphocytes 1.83 K/mcL Invalid Interpretation Code 0.90 - 4.00 [facility] Lymphocytes/100 leukocytes 16.9 % Invalid Interpretation Code [facility] MCH 25.6 pg Low 26 - 34 pg [facility] MCHC mass conc (RBC) 32.3 g/dL Invalid Interpretation Code 31 - 37 g/dL [facility] MCV 79.1 fL Low 80 - 100 fL [facility] Monocytes 0.68 K/mcL Invalid Interpretation Code 0.30 - 0.90 [facility] Monocytes/100 leukocytes 6.3 % Invalid Interpretation Code [facility] Neutrophils 8.06 K/mcL High 1.70 - 7.00 [facility] Neutrophils/100 WBC Auto (Bld) 74.3 % Invalid Interpretation Code [facility] Nucleated erythrocytes 0.00 K/mcL Invalid Interpretation Code 0.00 - 0.00 [facility] Nucleated erythrocytes/100 erythrocytes 0.0 % Invalid Interpretation Code [facility] Platelet mean volume (PMV) 11.4 fL Invalid Interpretation Code 9 - 15.5 fL [facility] Platelets 246 K/mcL Invalid Interpretation Code 150 - 400 [facility] WBC (Leukocytes) 10.83 K/mcL Invalid Interpretation Code 4.50 - 11.00 [facility] CBC w/ Diffon 07-19-2017 Creatinine The following orders were created for panel order CBC w/ Diff. Procedure Abnormality Status --------- ------ CBC Auto Differential[[id number]] Abnormal Final result Please view results for these tests on the individual orders. Invalid Interpretation Code [facility] Work Phone: [place] Topon 07-19-2017 Extra Tube Hold for add-ons. Invalid Interpretation Code [facility] Comment on above: Auto resulted. Hepatic Function Panelon Alanine aminotransferase (ALT) 14 U/L Invalid Interpretation Code 0 - 40 U/L [facility] Albumin 4.2 g/dL Invalid Interpretation Code 3.2 - 5.2 g/dL [facility] Alkaline phosphatase (ALP) 70 U/L Invalid Interpretation Code 40 - 140 U/L [facility] Aspartate aminotransferase (AST) 24 U/L Invalid Interpretation Code 0 - 45 U/L [facility] Bilirubin (conjugated) mg/dL Invalid Interpretation Code 0 - 0.4 mg/dL [facility] Bilirubin (total) mg/dL Invalid Interpretation Code 0 - 1.3 mg/dL [facility] Protein 7.7 g/dL Invalid Interpretation Code 6 - 8 g/dL [facility] Lipaseon 07-19-2017 Lipase 18 U/L Invalid Interpretation Code 15 - 65 U/L [facility] POC Urine Pregnancyon 2016 HCG ( test) Ql (U) Negative Invalid Interpretation Code Negative [facility] Work Phone: Internal Control Pass Invalid Interpretation Code [facility] Work Phone: Interpretation and review of laboratory results Normal Invalid Interpretation Code [facility] Work Phone: Urine, specific gravity Invalid Interpretation Code 1.005 - 1.025 [facility] Work Phone: [place] Drawon 07-19-2017 Creatinine The following orders were created for panel order [place] Draw. Procedure Abnormality Status --------- ------ Gold Top[[id number]] Final result Light Blue Top[[id number]] Final result Moran Top[[id number]] Final result Please view results for these tests on the individual orders. Invalid Interpretation Code [facility] Work Phone: Troponinon 07-19-2017 Interpretation and review of laboratory results Normal Invalid Interpretation Code [facility] Troponin T.cardiac mass conc ug/L Invalid Interpretation Code <0.040 ng/mL [facility] Comment on above: Specimen slightly he molyzed. Urinalysison 07-19-2017 Bilirubin Ql (U) Negative Invalid Interpretation Code Negative [facility] Blood, Urine Large Abnormal Negative [facility] Hyaline Casts 0-2 Invalid Interpretation Code 0 - 2 /lpf [facility] Interpretation and review of laboratory results Abnormal Invalid Interpretation Code [facility] Mucus, Urine Many Abnormal None Seen, Rare /lpf [facility] Nitrite, Urine Negative Invalid Interpretation Code Negative [facility] Squamous Epithelial 5 /hpf High 0 - 4 [facility] AB Urine, bacteria in sediment Rare Abnormal None Seen /hpf [facility] Urine, clarity Cloudy Abnormal Clear [facility] Urine, color Yellow Invalid Interpretation Code Colorless, Yellow [facility] Urine, erythrocytes 8 /hpf High 0 - 3 [facility] AB Urine, glucose presence Negative Invalid Interpretation Code Negative mg/dL [facility] Urine, ketones presence Negative Invalid Interpretation Code Negative mg/dL [facility] Urine, leukocyte esterase presence Negative Invalid Interpretation Code Negative [facility] Urine, pH 6.0 [pH] Invalid Interpretation Code 5.0 - 7.0 [facility] Urine, protein Negative Invalid Interpretation Code Negative mg/dL [facility] Urine, specific gravity 1.010 1 Invalid Interpretation Code 1.005 - 1.025 [facility] Urine, urobilinogen <2.0 Invalid Interpretation Code <2.0 mg/dL [facility] WBCs, Urine 6 /hpf High 0 - 5 [facility] Urinalysis Microscopic examination is performed on all urinalysis samples and only positive findings are reported. The test for blood on the chemical analytic portion of urinalysis may also be positive due to hemoglobinuria and myoglobinuria and if red blood cells are present they are quantified by microscopic examination. Invalid Interpretation Code [facility] XR Chest AP/PA and LATon XR Chest AP/PA and LAT EXAMINATION: TWO VIEWS OF THE CHEST 07/19/2017 5:35 pm COMPARISON: 06/23/2007 HISTORY: ORDERING SYSTEM PROVIDED HISTORY: cp; TECHNOLOGIST PROVIDED HISTORY: Reason for Exam: cp Illness/Other Acuity: Acute Cancer History: unk Surgery, Radiation History: unk Type of Encounter: Initial Additional signs and symptoms: pt c/o intermittent lower back pain x2 wks, states this AM she felt like something was sitting on her chest and she had multiple episodes of vomitting FINDINGS: The lungs are without acute focal process. There is no effusion or pneumothorax. The cardiomediastinal silhouette is without acute process. The osseous structures are without acute process. Invalid Interpretation Code [facility] XR Chest AP/PA and LAT Interface, Rad In [facility] - 07/19/2017 5:58 PM EST EXAMINATION: TWO VIEWS OF THE CHEST 07/19/2017 5:35 pm COMPARISON: 06/23/2007 HISTORY: ORDERING SYSTEM PROVIDED HISTORY: cp; TECHNOLOGIST PROVIDED HISTORY: Reason for Exam: cp Illness/Other Acuity: Acute Cancer History: unk Surgery, Radiation History: unk Type of Encounter: Initial Additional signs and symptoms: pt c/o intermittent lower back pain x2 wks, states this AM she felt like something was sitting on her chest and she had multiple episodes of vomitting FINDINGS: The lungs are without acute focal process. There is no effusion or pneumothorax. The cardiomediastinal silhouette is without acute process. The osseous structures are without acute process. IMPRESSION: No acute process. Workstation ID: [id number] Invalid Interpretation Code IdeaString [facility] XR Chest AP/PA and LAT No acute process. Workstation ID: [id number] Invalid Interpretation Code [employer]String [facility] Vital Signs Date Time Vital Sign Value Performing Clinician Facility 11-27-2019 02:43-0400 BMI (Body Mass Index) 35.51 kg/m2 [facility] 11-27-2019 02:43-0400 Body Temperature 98.29 [degF] [facility] 11-27-2019 02:43-0400 Body weight 99.79 kg [facility] 11-27-2019 02:43-0400 BP Diastolic 95 mm[Hg] [facility] 11-27-2019 02:43-0400 BP Systolic 144 mm[Hg] [facility] 11-27-2019 02:43-0400 Height 167.6 cm [facility] 11-27-2019 02:43-0400 Pulse (Heart Rate) 96 /min [facility] 11-27-2019 02:43-0400 Pulse Oximetry 96 % [facility] 11-27-2019 02:43-0400 Respiratory Rate 16 /min [facility] 01-03-2019 20:56-0400 BMI (Body Mass Index) 34.22 kg/m2 [facility] 01-03-2019 20:56-0400 Body Temperature 98.29 [degF] [facility] 01-03-2019 20:56-0400 BP Diastolic 94 mm[Hg] [facility] 01-03-2019 20:56-0400 BP Systolic 155 mm[Hg] [facility] 01-03-2019 20:56-0400 Height 167.6 cm [facility] 01-03-2019 20:56-0400 Pulse (Heart Rate) 86 /min [facility] 01-03-2019 20:56-0400 Pulse Oximetry 100 % [facility] 01-03-2019 20:56-0400 Respiratory Rate 15 /min [facility] 01-03-2019 20:56-0400 Weight 96.16 kg [facility] 11-23-2018 03:30-0400 BP Diastolic 85 mm[Hg] [facility] 11-23-2018 03:30-0400 BP Systolic 120 mm[Hg] [facility] 11-23-2018 03:30-0400 Pulse (Heart Rate) 70 /min [facility] 11-23-2018 03:30-0400 Pulse Oximetry 99 % [facility] 11-23-2018 03:30-0400 Respiratory Rate 18 /min [facility] 11-22-2018 22:30-0400 BMI (Body Mass Index) 35.51 kg/m2 [facility] 11-22-2018 22:30-0400 Body Temperature 98.1 [degF] [facility] 11-22-2018 22:30-0400 Height 167.6 cm [facility] 11-22-2018 22:30-0400 Weight 99.79 kg [facility] 02-07-2018 17:46-0400 BMI (Body Mass Index) 39.87 kg/m2 Chioma Farrukh [facility] 02-07-2018 17:46-0400 Body Temperature 98.71 [degF] Chioma Chadwick [facility] 02-07-2018 17:46-0400 BP Diastolic 80 mm[Hg] Chioma Chadwick [facility] 02-07-2018 17:46-0400 BP Systolic 132 mm[Hg] Chioma Farrukh [facility] 02-07-2018 17:46-0400 Height 167.6 cm Chioma Farrukh [facility] 02-07-2018 17:46-0400 Pulse (Heart Rate) 94 /min Chioma Chadwick [facility] 02-07-2018 17:46-0400 Pulse Oximetry 96 % Chioma Farrukh [facility] 02-07-2018 17:46-0400 Respiratory Rate 18 /min Chioma Farrukh [facility] 02-07-2018 17:46-0400 Weight 112.04 kg Chioma Chadwick [facility] 08-28-2017 01:05-0500 Body Temperature 98.29 [degF] Brian Kay [facility] Work Phone: 08-28-2017 01:05-0500 BP Diastolic 87 mm[Hg] [facility] Work Phone: 08-28-2017 01:05-0500 BP Systolic 128 mm[Hg] [facility] Work Phone: 08-28-2017 01:05-0500 Pulse (Heart Rate) 72 /min [facility] 08-28-2017 01:05-0500 Pulse Oximetry 100 % [facility] Work Phone: 08-27-2017 22:07-0500 Height 167.6 cm [facility] Work [facility]: 08-27-2017 22:07-0500 Respiratory Rate 14 /min [facility] Work Phone: 08-21-2017 10:50-0500 BP Diastolic 77 mm[Hg] Quan Ramsey [facility] Work Phone: 08-21-2017 10:50-0500 BP Systolic 129 mm[Hg] Quan Ramsey [facility] Work Phone: 08-21-2017 10:50-0500 Pulse (Heart Rate) 76 /min Quan Ramsey [facility] Work Phone: 08-21-2017 10:50-0500 Pulse Oximetry 97 % Quan Ramsey [facility] Work Phone: 08-21-2017 10:50-0500 Respiratory Rate 17 /min Quan Ramsey [facility] Work Phone: 08-21-2017 10:42-0500 Body Temperature 97.9 [degF] Quan Ramsey [facility] Work Phone: 08-21-2017 06:04-0500 BMI (Body Mass Index) 41.24 kg/m2 Quan Ramsey [facility] Work Phone: 08-21-2017 06:04-0500 Height 167.6 cm Quan Ramsey [facility] Work Phone: 08-21-2017 06:04-0500 Weight 115.89 kg Quan Ramsey [facility] Work Phone: 08-11-2017 11:25-0500 BMI (Body Mass Index) 40.84 kg/m2 Quan Ramsey [facility] Work Phone: 08-11-2017 11:25-0500 BP Diastolic 77 mm[Hg] Quan Ramsey [facility] Work Phone: 08-11-2017 11:25-0500 BP Systolic 115 mm[Hg] Quan Ramsey [facility] Work Phone: 08-11-2017 11:25-0500 Height 167.6 cm Quan Ramsey [employer] Work Phone: 08-11-2017 11:25-0500 Pulse (Heart Rate) 90 /min Quan Ramsey [facility] Work Phone: 08-11-2017 11:25-0500 Weight 114.76 kg Quan Ramsey [facility] Work Phone: 07-19-2017 19:45-0500 BP Diastolic 78 mm[Hg] Fadi Armas [facility] Work Phone: 07-19-2017 19:45-0500 BP Systolic 98 mm[Hg] Fadi Armas [facility] Work Phone: 07-19-2017 19:45-0500 Pulse (Heart Rate) 85 /min Fadi Armas [facility] Work Phone: 07-19-2017 19:45-0500 Pulse Oximetry 100 % Fadi Armas [facility] Work Phone: 07-19-2017 19:45-0500 Respiratory Rate 16 /min Fadi Armas [facility] Work Phone: 07-19-2017 17:12-0500 BMI (Body Mass Index) 41.32 kg/m2 Fadi Armas [facility] Work Phone: 07-19-2017 17:12-0500 Body Temperature 98.01 [degF] Fadi Armas [facility] Work Phone: 07-19-2017 17:12-0500 Height 167.6 cm Fadi Armas [employer] Work Phone: 07-19-2017 17:12-0500 Weight 116.12 kg Fadi Armas [facility] Work Phone: Encounters Encounter Date Encounter Type Care Provider Facility Start: 11-27-2019 End: 11-27-2019 Emergency department patient visit PHYSICIAN NO [facility] Start: 11-27-2019 End: 11-27-2019 Emergency department patient visit Damien Michael Orozco Work Phone: [facility] Emergency Department Comment on above: Acute conjunctivitis of right eye, unspecified acute conjunctivitis type (Primary Dx); Leg abscess Start: 01-03-2019 End: 01-03-2019 Emergency department patient visit PHYSICIAN NO [facility] Start: 01-03-2019 End: 01-03-2019 Emergency department patient visit Alinejakub Miller Work Phone: [facility] Emergency Department Comment on above: Medication refill (P rimary Dx); Hypertension, unspecified type; Recurrent acute serous otitis media of both ears; Acute otitis externa of left ear, unspecified type; Chlamydia Start: 11-23-2018 End: 11-23-2018 Emergency department patient visit PHYSICIAN NO [facility] Start: 11-22-2018 End: 11-23-2018 Emergency department patient visit Chioma Boothe Work Phone: [facility] Emergency Department Comment on above: Bacterial vaginosis (Primary Dx) Start: 02-07-2018 End: 02-07-2018 Emergency department patient visit PHYSICIAN NO [facility] Start: 02-07-2018 End: 02-07-2018 Emergency department patient visit Chioma Chadwick Work Phone: [facility] Emergency Department Start: 08-27-2017 End: 08-28-2017 Emergency department patient visit Brian Kay Work Phone: [facility] Emergency Department Start: 08-21-2017 End: 08-21-2017 Ambulatory Quan Ramsey Work Phone: [facility] Periop Start: 08-11-2017 End: 08-11-2017 Ambulatory QUAN RAMSEY [facility] Start: 08-11-2017 Office outpatient ne w 30 minutes Quan Ramsey Work Phone: [facility] Start: 07-19-2017 End: 07-19-2017 Emergency department patient visit Fadi Armas Work Phone: [facility] Emergency Department Procedures Date Procedure Procedure Detail Performing Clinician Start: 11-23-2018 Ct abdomen & pelvis w/contrast material Ruel Ramirez Work Phone: Start: 11-23-2018 Cast care: wet Ruel Ramirez Work Phone: Start: 11-23-2018 Basic metabolic 2000 panel - Serum or Plasma Ruel Ramirez Work Phone: Start: 11-23-2018 Complete blood count with white cell differential, automated Ruel Ramirez Work Phone: Start: 11-23-2018 Complete blood count with white cell differential, manual Ruel Ramirez Work Phone: Start: 11-23-2018 MORAN TOP Chioma Boothe Work Phone: Start: 11-23-2018 Hepatic function 2000 panel - Serum or Plasma Ruel Ramirez Work Phone: Start: 11-23-2018 LIGHT BLUE TOP Chioma Boothe Work Phone: Start: 11-23-2018 LIGHT GREEN TOP Chioma Boothe Work Phone: Start: 11-23-2018 Lipase [Enzymatic activity/volume] in Serum or Plasma Ruel Ramirez Work Phone: Start: 11-23-2018 PINK TOP Chioma Boothe Work Phone: Start: 11-23-2018 RAINBOW DRAW Chioma Boothe Work Phone: Start: 11-23-2018 Choriogonadotropin ( test) [Presence] in Urine Chioma Boothe Work Phone: Start: 11-23-2018 Urinalysis Chioma Boothe Work Phone: Start: 02-07-2018 End: 02-07-2018 INCISION AND DRAINAGE Namita cates Work Phone: Start: 02-07-2018 End: 02-07-2018 US ED-MUSCULOSKELETAL Namita cates Work Phone: Plan of Treatment Date Care Activity Detail Author Start: 01-12-2026 Tetanus vaccination [facility] Work Phone: Start: 11-24-2019 Screening for Chlamy yehuda trachomatis [facility] Start: 05-01-2019 Influenza vaccinatio n given [facility] Start: 05-01-2018 Influenza vaccination SEQUENTI AL INFLUENZA VACCINE (Season Ended) [facility] Start: 05-01-2018 Influenza vaccinatio n given SEQUENTIAL INFLUENZA VACCINE (#1) [facility] Start: 09-08-2017 Ambulatory 09/08/2017 [facility] Quan Ramsey III, MD [address] [place] [address] [phone] [facility] Start: 08-21-2017 Ambulatory [facility] Start: 05-01-2017 Influenza vaccination SEQUENTI AL INFLUENZA VACCINE (#1) [facility] Work Phone: Start: 2010 Vaccination for maurice n papillomavirus HPV VACCINES (1 - Female 3-dose series) [facility] Start: 2006 Vaccination for maurice n papillomavirus HPV VACCINES (1 of 3 - Female 3 Dose Series) [facility] Work Phone: Start: 1998 History and physical examination, annual for health maintenance Wellness Visit [facility] Start: 1995 Screening for malign ant neoplasm of cervix PAP SMEAR [facility] Work Phone: End: 11-23-2018 Chlamydia trachomatis rRNA assay Chlamydia/GC/Trichomo sultana Amplified RNA Routine Once for 1 Occurrences starting 11/23/2018 until 11/23/2018 [facility] Comment on above: Once for 1 Occurrenc es starting 11/23/2018 until 11/23/2018 Chlamydia trachomati s rRNA assay Chlamydia/GC/Trichomo sultana Amplified RNA Routine 11/23/2018 1:07 AM EDT [facility] End: 11-23-2018 Neisseria gonorrhoeae nucleic acid detection Chlamydia/Gonorrhoeae Amplified RNA Routine Once for 1 Occurrences starting 11/23/2018 until 11/23/2018 [facility] Comment on above: Once for 1 Occurrenc es starting 11/23/2018 until 11/23/2018 Neisseria gonorrhoea e nucleic acid detection Chlamydia/Gonorrhoeae Amplified RNA Routine 11/23/2018 1:07 AM EDT [facility] Tissue Exam [facility] Work Phone: End: 11-23-2018 Trichomonas vaginalis Amplified RNA Trichomonas vaginalis Amplified RNA Routine Once for 1 Occurrences starting 11/23/2018 until 11/23/2018 [facility] Comment on above: Once for 1 Occurrenc es starting 11/23/2018 until 11/23/2018 Trichomonas vaginali s Amplified RNA Trichomonas vaginalis Amplified RNA Routine 11/23/2018 1:07 AM EDT [facility] US Abdomen Limited Study US Abdo men Limited Study RAJNI 07/19/2017 9:00 PM EST [facility] Work Phone: Wound Aerobic Culture Wound Aero bic Culture Routine 02/07/2018 8:02 PM EDT [facility] Immunizations Immunization Date Immunization Notes Care Provider Fa leona 01-13-2016 tetanus toxoid, redu sis diphtheria toxoid, and acellular pertussis vaccine, adsorbed; Translations: [TDAP] Fadi Pawel [facility] Work Phone: 10-29-2015 influenza, injectabl e, quadrivalent, preservative free; Translations: [INFLUENZA IIV4 3YO OR > FLUARIX/FLUZONE/AFLURIA 98927] Fadi Armas [facility] Work Phone: Payers Date Payer Category Payer Medicaid [id number] 2015 Medicaid [employer] [place] xxxxxxxxxxxx 2015-Present xxxxxxxxxxxx [id number] 1995 Unknown [id number] 1995 Unknown [id number] 1995 Unknown [id number] 1995 Unknown [id number] Social History Date Type Detail Facility Start: 08-27-2017 End: 02-07-2018 Tobacco smoking status NVIS Light tobacco smoker [facility] Work Phone: History of tobacco use Cigarette Smoker O [facility] Work Phone: Start: 08-27-2017 End: 11-27-2019 Cigarettes smoked current (pack per day) - Reported [facility] Work Phone: Sex Assigned At Not on file [facility] Work Phone: Start: 11-22-2018 End: 11-27-2019 Tobacco smoking status [facility] Current every day smoker [facility] Start: 05-14-2015 Alcohol Comment rare [facility] Start: 11-27-2019 Alcohol intake Current drinke r of alcohol (finding) [facility] Medical Equipment Procedure Code Equipment Code Equipment Origin al Text Equipment Identifier Dates Screw 2.[address] T8 Strdrv Rec - [id number] Start: 09-02-2015 Plate 2.7mm 6hl Va-Lcp Rt Dist Fib - [id number] Start: 09-02-2015 Screw 4 X 50mm C robin Short Thrd - [id number] Start: 09-02-2015 Screw 2.7 X 36mm Va Lock T8 Strdrv Rec - [id number] Start: 09-02-2015 Screw 2.7 X [address] T8 Strdrv Rec - [id number] Start: 09-02-2015 Screw 2.[address] T8 Strdrv Rec - [id number] Start: 09-02-2015 Screw 2.7 X [address] T8 Strdrv Rec - [id number] Start: 09-02-2015 Screw 2.7 X [address] T8 Strdrv Rec - [id number] Start: 09-02-2015 Screw 2.[address] T8 Strdrv Rec - [id number] Start: 09-02-2015 Screw 2.7 X 12mm Va Lock T8 Strdrv Rec - [id number] Start: 09-02-2015 Screw 2.7 X 14mm Va Lock T8 Strdrv Rec - [id number] Start: 09-02-2015 Screw 2.7 X 18mm Va Lock T8 Strdrv Rec - [id number] Start: 09-02-2015 Hemostat 5gm Luigi sta - [id number] Start: 01-12-2016 Screw 2.7 X [address] T8 Strdrv Rec - [id number] Start: 09-02-2015 Plate 2.7mm 6hl Va-Lcp Rt Dist Fib - [id number] Start: 09-02-2015 Screw 4 X 50mm C robin Short Thrd - [id number] Start: 09-02-2015 Screw 2.7 X 36mm Va Lock T8 Strdrv Rec - [id number] Start: 09-02-2015 Screw 2.[address] T8 Strdrv Rec - [id number] Start: 09-02-2015 Screw 2.[address] T8 Strdrv Rec - [id number] Start: 09-02-2015 Screw 2.7 X [address] T8 Strdrv Rec - [id number] Start: 09-02-2015 Screw 2.7 X [address] T8 Strdrv Rec - [id number] Start: 09-02-2015 Screw 2.[address] T8 Strdrv Rec - [id number] Start: 09-02-2015 Screw 2.7 X 12mm Va Lock T8 Strdrv Rec - [id number] Start: 09-02-2015 Screw 2.7 X 14mm Va Lock T8 Strdrv Rec - [id number] Start: 09-02-2015 Screw 2.7 X 18mm Va Lock T8 Strdrv Rec - [id number] Start: 09-02-2015 Hemostat 5gm Luigi sta - [id number] Start: 01-12-2016 Screw 2.7 X [address] T8 Strdrv Rec - [id number] Start: 09-02-2015 Plate 2.7mm 6hl Va-Lcp Rt Dist Fib - [id number] Start: 09-02-2015 Screw 4 X 50mm C robin Short Thrd - [id number] Start: 09-02-2015 Screw 2.7 X 36mm Va Lock T8 Strdrv Rec - [id number] Start: 09-02-2015 Screw 2.7 X [address] T8 Strdrv Rec - [id number] Start: 09-02-2015 Screw 2.[address] T8 Strdrv Rec - [id number] Start: 09-02-2015 Screw 2.7 X [address] T8 Strdrv Rec - [id number] Start: 09-02-2015 Screw 2.7 X [address] T8 Strdrv Rec - [id number] Start: 09-02-2015 Screw 2.[address] T8 Strdrv Rec - [id number] Start: 09-02-2015 Screw 2.7 X 12mm Va Lock T8 Strdrv Rec - [id number] Start: 09-02-2015 Screw 2.7 X 14mm Va Lock T8 Strdrv Rec - [id number] Start: 09-02-2015 Screw 2.7 X 18mm Va Lock T8 Strdrv Rec - [id number] Start: 09-02-2015 Hemostat 5gm Luigi sta - [id number] Start: 01-12-2016 Screw 2.7 X [address] T8 Strdrv Rec - [id number] Start: 09-02-2015 Plate 2.7mm 6hl Va-Lcp Rt Dist Fib - [id number] Start: 09-02-2015 Screw 4 X 50mm C robin Short Thrd - [id number] Start: 09-02-2015 Screw 2.7 X 36mm Va Lock T8 Strdrv Rec - [id number] Start: 09-02-2015 Screw 2.7 X [address] T8 Strdrv Rec - [id number] Start: 09-02-2015 Screw 2.[address] T8 Strdrv Rec - [id number] Start: 09-02-2015 Screw 2.7 X [address] T8 Strdrv Rec - [id number] Start: 09-02-2015 Screw 2.7 X [address] T8 Strdrv Rec - [id number] Start: 09-02-2015 Screw 2.7 [address] T8 Strdrv Rec - [id number] Start: 09-02-2015 Screw 2.7 X 12mm Va Lock T8 Strdrv Rec - [id number] Start: 09-02-2015 Screw 2.7 X 14mm Va Lock T8 Strdrv Rec - [id number] Start: 09-02-2015 Screw 2.7 X 18mm Va Lock T8 Strdrv Rec - [id number] Start: 09-02-2015 Hemostat 5gm Luigi sta - [id number] Start: 01-12-2016 Screw 2.7 [address] T8 Strdrv Rec - [id number] Start: 09-02-2015 Plate 2.7mm 6hl Va-Lcp Rt Dist Fib - [id number] Start: 09-02-2015 Screw 4 X 50mm C robin Short Thrd - [id number] Start: 09-02-2015 Screw 2.7 X 36mm Va Lock T8 Strdrv Rec - [id number] Start: 09-02-2015 Screw 2.7 X [address] T8 Strdrv Rec - [id number] Start: 09-02-2015 Screw 2.7 [address] T8 Strdrv Rec - [id number] Start: 09-02-2015 Screw 2.7 X [address] T8 Strdrv Rec - [id number] Start: 09-02-2015 Screw 2.7 X [address] T8 Strdrv Rec - [id number] Start: 09-02-2015 Screw 2.[address] T8 Strdrv Rec - [id number] Start: 09-02-2015 Screw 2.7 X 12mm Va Lock T8 Strdrv Rec - [id number] Start: 09-02-2015 Screw 2.7 X 14mm Va Lock T8 Strdrv Rec - [id number] Start: 09-02-2015 Screw 2.7 X 18mm Va Lock T8 Strdrv Rec - [id number] Start: 09-02-2015 Hemostat 5gm Luigi sta - [id number] Start: 01-12-2016 Screw 2.7 X [address] T8 Strdrv Rec - [id number] Start: 09-02-2015 Plate 2.7mm 6hl Va-Lcp Rt Dist Fib - [id number] Start: 09-02-2015 Screw 4 X 50mm C robin Short Thrd - [id number] Start: 09-02-2015 Screw 2.7 X 36mm Va Lock T8 Strdrv Rec - [id number] Start: 09-02-2015 Screw 2.7 [address] T8 Strdrv Rec - [id number] Start: 09-02-2015 Screw 2.[address] T8 Strdrv Rec - [id number] Start: 09-02-2015 Screw 2.7 X [address] T8 Strdrv Rec - [id number] Start: 09-02-2015 Screw 2.7 X [address] T8 Strdrv Rec - [id number] Start: 09-02-2015 Screw 2.[address] T8 Strdrv Rec - [id number] Start: 09-02-2015 Screw 2.7 X 12mm Va Lock T8 Strdrv Rec - [id number] Start: 09-02-2015 Screw 2.7 X 14mm Va Lock T8 Strdrv Rec - [id number] Start: 09-02-2015 Screw 2.7 X 18mm Va Lock T8 Strdrv Rec - [id number] Start: 09-02-2015 Hemostat 5gm Luigi sta - [id number] Start: 01-12-2016 Screw 2.7 X [address] T8 Strdrv Rec - [id number] Start: 09-02-2015 Plate 2.7mm 6hl Va-Lcp Rt Dist Fib - [id number] Start: 09-02-2015 Screw 4 X 50mm C robin Short Thrd - [id number] Start: 09-02-2015 Screw 2.7 X 36mm Va Lock T8 Strdrv Rec - [id number] Start: 09-02-2015 Screw 2.7 X [address] T8 Strdrv Rec - [id number] Start: 09-02-2015 Screw 2.7 X [address] T8 Strdrv Rec - [id number] Start: 09-02-2015 Screw 2.7 X [address] T8 Strdrv Rec - [id number] Start: 09-02-2015 Screw 2.7 X [address] T8 Strdrv Rec - [id number] Start: 09-02-2015 Screw 2.7 X [address] T8 Strdrv Rec - [id number] Start: 09-02-2015 Screw 2.7 X 12mm Va Lock T8 Strdrv Rec - [id number] Start: 09-02-2015 Screw 2.7 X 14mm Va Lock T8 Strdrv Rec - [id number] Start: 09-02-2015 Screw 2.7 X 18mm Va Lock T8 Strdrv Rec - [id number] Start: 09-02-2015 Hemostat 5gm Luigi sta - [id number] Start: 01-12-2016 Screw 2.7 X [address] T8 Strdrv Rec - [id number] Start: 09-02-2015 Plate 2.7mm 6hl Va-Lcp Rt Dist Fib - [id number] Start: 09-02-2015 Screw 4 X 50mm C robin Short Thrd - [id number] Start: 09-02-2015 Screw 2.7 X 36mm Va Lock T8 Strdrv Rec - [id number] Start: 09-02-2015 Screw 2.7 X [address] T8 Strdrv Rec - [id number] Start: 09-02-2015 Screw 2.7 X [address] T8 Strdrv Rec - [id number] Start: 09-02-2015 Screw 2.7 X [address] T8 Strdrv Rec - [id number] Start: 09-02-2015 Screw 2.7 X [address] T8 Strdrv Rec - [id number] Start: 09-02-2015 Screw 2.7 X [address] T8 Strdrv Rec - [id number] Start: 09-02-2015 Screw 2.7 X 12mm Va Lock T8 Strdrv Rec - [id number] Start: 09-02-2015 Screw 2.7 X 14mm Va Lock T8 Strdrv Rec - [id number] Start: 09-02-2015 Screw 2.7 X 18mm Va Lock T8 Strdrv Rec - [id number] Start: 09-02-2015 Hemostat 5gm Luigi [facility] - [id number] 219730_[facility] Start: 01-12-2016 Discharge Instructions * Marian Fernandez, CLIN APPLICATION SPECIALIST - 08/28/2017 Acute Pain After Surgery: Care Instructions Your Care Instructions It's common to have some pain after surgery. Pain doesn't mean that something is wrong or that the surgery didn't go well. But when the pain is severe, it's important to work with your doctor to manage it. It's also important to be aware of a few facts about pain and pain medicine. You are the only person who knows what your pain feels like. So be sure to tell your doctor when you are in pain or when the pain changes. Then he or she will know how to adjust your medicines. Pain is often easier to control right after it starts. So it may be better to take regular doses ofpain medicine and not wait until the pain gets bad. Medicine can help control pain. But this doesn't mean you'll have no pain. Medicine works to keep the pain at a level you can live with. With time, you will feel better. Follow-up care is a abreu part of your treatment and safety. Be sure to make and go to all appointments, and call your doctor if you are having problems. It's also a good idea to know your test resultsand keep a list of the medicines you take. How can you care for yourself at home? Be safe with medicines. Read and follow all instructions on the label. If the doctor gave you a prescription medicine for pain, take it as prescribed. If you are not taking a prescription pain medicine, ask your doctor if you can take an kigm-sae-phmjtnv medicine. If you take an hmkf-qhx-vcbwytm pain medicine, such as acetaminophen (Tylenol), ibuprofen (Advil, Motrin), or naproxen (Aleve), read and follow all instructions on the label. Do not take two or more pain medicines at the same time unless the doctor told you to. Do not drink alcohol while you are taking pain medicines. Try to walk each day if your doctor recommends it. Start by walking a little more than you did the day before. Bit by bit, increase the amount you walk. Walking increases blood flow. It also helps prevent pneumonia and constipation. To prevent constipation from opioid pain medicines: Talk to your doctor about a laxative. Include fruits, vegetables, beans, and whole grains in your diet each day. These foods are high in fiber. Drink plenty of fluids, enough so that your urine is light yellow or clear like water. Drink water,fruit juice, or other drinks that do not contain caffeine or alcohol. If you have kidney, heart, orliver disease and have to limit fluids, talk with your doctor before you increase the amount of fluids you drink. Take a fiber supplement, such as Citrucel or Metamucil, every day if needed. Read and follow all instructions on the label. If you take pain medicine for more than a few days, talk to your doctor before you take fiber. When should you call for help? Call your doctor now or seek immediate medical care if: Your pain gets worse. Your pain is not controlled by medicine. Watch closely for changes in your health, and be sure to contact your doctor if you have any problems. Where can you learn more? Log into your personal health record on https://[employer]Status Overload and enter H549 in the Education box to learn more about Acute Pain After Surgery: Care Instructions. Current as of: July 15, 2016 Content Version: 11.2 5956-0210 [employer]. Care instructions adapted under license by your healthcare professional. If you have questions about a medical condition or this instruction, always ask your healthcare professional. [employer] disclaims any warranty or liability for your use of this information. Pneumonia: Care Instructions Your Care Instructions Pneumonia is an infection of the lungs. Most cases are caused by infections from bacteria or viruses. Pneumonia may be mild or very severe. If it is caused by bacteria, you will be treated with antibiotics. It may take a few weeks to a few months to recover fully from pneumonia, depending on how sickyou were and whether your overall health is good. Follow-up care is a abreu part of your treatment and safety. Be sure to make and go to all appointments, and call your doctor if you are having problems. It s also a good idea to know your test resultsand keep a list of the medicines you take. How can you care for yourself at home? Take your antibiotics exactly as directed. Do not stop taking the medicine just because you are feeling better. You need to take the full course of antibiotics. Take your medicines exactly as prescribed. Call your doctor if you think you are having a problem with your medicine. Get plenty of rest and sleep. You may feel weak and tired for a while, but your energy level will improve with time. To prevent dehydration, drink plenty of fluids, enough so that your urine is light yellow or clear like water. Choose water and other caffeine-free clear liquids until you feel better. If you have kidney, heart, or liver disease and have to limit fluids, talk with your doctor before you increase the amount of fluids you drink. Take care of your cough so you can rest. A cough that brings up mucus from your lungs is common with pneumonia. It is one way your body gets rid of the infection. But if coughing keeps you from resting or causes severe fatigue and chest-wall pain, talk to your doctor. He or she may suggest that youtake a medicine to reduce the cough. Use a vaporizer or humidifier to add moisture to your bedroom. Follow the directions for cleaning the machine. Do not smoke or allow others to smoke around you. Smoke will make your cough last longer. If you need help quitting, talk to your doctor about stop-smoking programs and medicines. These can increase your chances of quitting for good. Take an giuv-qqd-gmvqqaw pain medicine, such as acetaminophen (Tylenol), ibuprofen (Advil, Motrin),or naproxen (Aleve). Read and follow all instructions on the label. Do not take two or more pain medicines at the same time unless the doctor told you to. Many pain medicines have acetaminophen, which is Tylenol. Too much acetaminophen (Tylenol) can be harmful. If you were given a spirometer to measure how well your lungs are working, use it as instructed. This can help your doctor tell how your recovery is going. To prevent pneumonia in the future, talk to your doctor about getting a flu vaccine (once a year) and a pneumococcal vaccine (one time only for most people). When should you call for help? Call 911 anytime you think you may need emergency care. For example, call if: You have severe trouble breathing. Call your doctor now or seek immediate medical care if: You cough up dark brown or bloody mucus (sputum). You have new or worse trouble breathing. You are dizzy or lightheaded, or you feel like you may faint. Watch closely for changes in your health, and be sure to contact your doctor if: You have a new or higher fever. You are coughing more deeply or more often. You are not getting better after 2 days (48 hours). You do not get better as expected. Where can you learn more? Log into your personal health record on https://[employer]Status Overload and enter D336 in the Education box to learn more about Pneumonia: Care Instructions. Current as of: January 21, 2016 Content Version: 11.2 1836-3674 [employer]. Care instructions adapted under license by your healthcare professional. If you have questions about a medical condition or this instruction, always ask your healthcare professional. [employer] disclaims any warranty or liability for your use of this information. in this encounter The following attachments cannot be sent through Care Everywhere. * CHOLECYSTECTOMY: POST-OP (TAIWANESE) * POST-OP INFECTION (TAIWANESE) * PAIN POST-SURGERY: ACUTE (TAIWANESE) * NAUSEA AND VOMITING: AFTER SURGERY (TAIWANESE) * SURGERY: GENERIC: POST-OP (TAIWANESE) in this encounter* Fadi Armas MD - 07/19/2017 Biliary Colic: Care Instructions Your Care Instructions Biliary (say JOHX-yr-yoy-ee ) colic is belly pain caused by gallbladder problems. It is usually caused by a gallstone moving through or blocking the common bile duct or cystic duct. Gallstones are stones that form in the gallbladder. They are made of cholesterol and other substances. The gallbladder is a small sac located just under the liver. It stores bile released by the liver. Bile helps you digest fats. Gallstones also can form in the common bile duct or cystic duct. These ducts carry bile from the gallbladder and the liver to the small intestine. Gallstones may be as small as a grain of sand or as large as a golf ball. Gallstones that cause severe symptoms usually are treated with surgery to remove the gallbladder. If the first attack of biliary colic is mild, it is often safe to wait until you have had another attack before you think about having surgery. The doctor has checked you carefully, but problems can develop later. If you notice any problems ornew symptoms, get medical treatment right away. Follow-up care is a abreu part of your treatment and safety. Be sure to make and go to all appointments, and call your doctor if you are having problems. It's also a good idea to know your test resultsand keep a list of the medicines you take. How can you care for yourself at home? Take pain medicines exactly as directed. If the doctor gave you a prescription medicine for pain, take it as prescribed. If you are not taking a prescription pain medicine, ask your doctor if you can take an kbzz-frx-vjqtisb medicine. Read and follow all instructions on the label. Avoid foods that cause symptoms, especially fatty foods. These can cause biliary colic. You may need more tests to look at your gallbladder. When should you call for help? Call your doctor now or seek immediate medical care if: You have a fever. You have new belly pain, or your pain gets worse. There is a new or increasing yellow tint to your skin or the whites of your eyes. Your urine is dark yellow-brown, or your stools are light-colored or white. You cannot keep down fluids. Watch closely for changes in your health, and be sure to contact your doctor if: You do not get better as expected. You are not getting better after 1 day (24 hours). Where can you learn more? Log into your personal health record on https://[employer]Status Overload and enter X038 in the Education box to learn more about Biliary Colic: Care Instructions. Current as of: April 08, 2016 Content Version: 11.2 0486-6562 [employer]. Care instructions adapted under license by your healthcare professional. If you have questions about a medical condition or this instruction, always ask your healthcare professional. [employer] disclaims any warranty or liability for your use of this information. Abdominal Pain: Care Instructions Your Care Instructions Abdominal pain has many possible causes. Some aren't serious and get better on their own in a few days. Others need more testing and treatment. If your pain continues or gets worse, you need to be rechecked and may need more tests to find out what is wrong. You may need surgery to correct the problem. Don't ignore new symptoms, such as fever, nausea and vomiting, urination problems, pain that gets worse, and dizziness. These may be signs of a more serious problem. Your doctor may have recommended a follow-up visit in the next 8 to 12 hours. If you are not getting better, you may need more tests or treatment. The doctor has checked you carefully, but problems can develop later. If you notice any problems ornew symptoms, get medical treatment right away. Follow-up care is a abreu part of your treatment and safety. Be sure to make and go to all appointments, and call your doctor if you are having problems. It's also a good idea to know your test resultsand keep a list of the medicines you take. How can you care for yourself at home? Rest until you feel better. To prevent dehydration, drink plenty of fluids, enough so that your urine is light yellow or clear like water. Choose water and other caffeine-free clear liquids until you feel better. If you have kidney, heart, or liver disease and have to limit fluids, talk with your doctor before you increase the amount of fluids you drink. If your stomach is upset, eat mild foods, such as rice, dry toast or crackers, bananas, and applesauce. Try eating several small meals instead of two or three large ones. Wait until 48 hours after all symptoms have gone away before you have spicy foods, alcohol, and drinks that contain caffeine. Do not eat foods that are high in fat. Avoid anti-inflammatory medicines such as aspirin, ibuprofen (Advil, Motrin), and naproxen (Aleve).These can cause stomach upset. Talk to your doctor if you take daily aspirin for another health problem. When should you call for help? Call 911 anytime you think you may need emergency care. For example, call if: You passed out (lost consciousness). You pass maroon or very bloody stools. You vomit blood or what looks like coffee grounds. You have new, severe belly pain. Call your doctor now or seek immediate medical care if: Your pain gets worse, especially if it becomes focused in one area of your belly. You have a new or higher fever. Your stools are black and look like tar, or they have streaks of blood. You have unexpected vaginal bleeding. You have symptoms of a urinary tract infection. These may include: Pain when you urinate. Urinating more often than usual. Blood in your urine. You are dizzy or lightheaded, or you feel like you may faint. Watch closely for changes in your health, and be sure to contact your doctor if: You are not getting better after 1 day (24 hours). Where can you learn more? Log into your personal health record on https://[employer]Status Overload and enter E907 in the Education box to learn more about Abdominal Pain: Care Instructions. Current as of: January 25, 2016 Content Version: .[id number] [employer]. Care instructions adapted under license by your healthcare professional. If you have questions about a medical condition or this instruction, always ask your healthcare professional. [employer] disclaims any warranty or liability for your use of this information. Chest Pain: Care Instructions Your Care Instructions There are many things that can cause chest pain. Some are not serious and will get better on their own in a few days. But some kinds of chest pain need more testing and treatment. Your doctor may have recommended a follow-up visit in the next 8 to 12 hours. If you are not getting better, you may need more tests or treatment. Even though your doctor has released you, you still need to watch for any problems. The doctor carefully checked you, but sometimes problems can develop later. If you have new symptoms or if your symptoms do not get better, get medical care right away. If you have worse or different chest pain or pressure that lasts more than 5 minutes or you passed out (lost consciousness), call 911 or seek other emergency help right away. A medical visit is only one step in your treatment. Even if you feel better, you still need to do what your doctor recommends, such as going to all suggested follow-up appointments and taking medicines exactly as directed. This will help you recover and help prevent future problems. How can you care for yourself at home? Rest until you feel better. Take your medicine exactly as prescribed. Call your doctor if you think you are having a problem with your medicine. Do not drive after taking a prescription pain medicine. When should you call for help? Call 911 if: You passed out (lost consciousness). You have severe difficulty breathing. You have symptoms of a heart attack. These may include: Chest pain or pressure, or a strange feeling in your chest. Sweating. Shortness of breath. Nausea or vomiting. Pain, pressure, or a strange feeling in your back, neck, jaw, or upper belly or in one or both shoulders or arms. Lightheadedness or sudden weakness. A fast or irregular heartbeat. After you call 911, the bone cooking operator may tell you to chew 1 adult-strength or 2 to 4 low-dose aspirin. Wait for an ambulance. Do not try to drive yourself. Call your doctor today if: You have any trouble breathing. Your chest pain gets worse. You are dizzy or lightheaded, or you feel like you may faint. You are not getting better as expected. You are having new or different chest pain. Where can you learn more? Log into your personal health record on https://AnonymAskhart.Status Overload and enter A120 in the Education box to learn more about Chest Pain: Care Instructions. Current as of: January 25, 2016 Content Version: 11.2 9465-8619 [employer]. Care instructions adapted under license by your healthcare professional. If you have questions about a medical condition or this instruction, always ask your healthcare professional. [employer] disclaims any warranty or liability for your use of this information. Back Pain: Care Instructions Your Care Instructions Back pain has many possible causes. It is often related to problems with muscles and ligaments of the back. It may also be related to problems with the nerves, discs, or bones of the back. Moving, lifting, standing, sitting, or sleeping in an awkward way can strain the back. Sometimes you don't notice the injury until later. Arthritis is another common cause of back pain. Although it may hurt a lot, back pain usually improves on its own within several weeks. Most peoplerecover in 12 weeks or less. Using good home treatment and being careful not to stress your back can help you feel better sooner. Follow-up care is a abreu part of your treatment and safety. Be sure to make and go to all appointments, and call your doctor if you are having problems. It s also a good idea to know your test resultsand keep a list of the medicines you take. How can you care for yourself at home? Sit or lie in positions that are most comfortable and reduce your pain. Try one of these positions when you lie down: Lie on your back with your knees bent and supported by large pillows. Lie on the floor with your legs on the seat of a sofa or chair. Lie on your side with your knees and hips bent and a pillow between your legs. Lie on your stomach if it does not make pain worse. Do not sit up in bed, and avoid soft couches and twisted positions. Bed rest can help relieve pain at first, but it delays healing. Avoid bed rest after the first day of back pain. Change positions every 30 minutes. If you must sit for long periods of time, take breaks from sitting. Get up and walk around, or lie in a comfortable position. Try using a heating pad on a low or medium setting for 15 to 20 minutes every 2 or 3 hours. Try a warm shower in place of one session with the heating pad. You can also try an ice pack for 10 to 15 minutes every 2 to 3 hours. Put a thin cloth between the ice pack and your skin. Take pain medicines exactly as directed. If the doctor gave you a prescription medicine for pain, take it as prescribed. If you are not taking a prescription pain medicine, ask your doctor if you can take an cdvp-akv-mthbycu medicine. Take short walks several times a day. You can start with 5 to 10 minutes, 3 or 4 times a day, and work up to longer walks. Walk on level surfaces and avoid hills and stairs until your back is better. Return to work and other activities as soon as you can. Continued rest without activity is usually not good for your back. To prevent future back pain, do exercises to stretch and strengthen your back and stomach. Learn how to use good posture, safe lifting techniques, and proper body mechanics. When should you call for help? Call your doctor now or seek immediate medical care if: You have new or worsening numbness in your legs. You have new or worsening weakness in your legs. (This could make it hard to stand up.) You lose control of your bladder or bowels. Watch closely for changes in your health, and be sure to contact your doctor if: Your pain gets worse. You are not getting better after 2 weeks. Where can you learn more? Log into your personal health record on https://Bioinceptt.[employer] Over[employer] and enter I594 in the Education box to learn more about Back Pain: Care Instructions. Current as of: January 21, 2016 Content Version: 11.2 0357-8717 [employer]. Care instructions adapted under license by your healthcare professional. If you have questions about a medical condition or this instruction, always ask your healthcare professional. [employer] disclaims any warranty or liability for your use of this information. Learning About Relief for Back Pain What is back tension and strain? Back strain happens when you overstretch, or pull, a muscle in your back. You may hurt your back inan accident or when you exercise or lift something. Most back pain will get better with rest and time. You can take care of yourself at home to help your back heal. What can you do first to relieve back pain? When you first feel back pain, try these steps: Walk. Take a short walk (10 to 20 minutes) on a level surface (no slopes, hills, or stairs) every 2to 3 hours. Walk only distances you can manage without pain, especially leg pain. Relax. Find a comfortable position for rest. Some people are comfortable on the floor or a medium-firm bed with a small pillow under their head and another under their knees. Some people prefer to lie on their side with a pillow between their knees. Don't stay in one position for too long. Try heat or ice. Try using a heating pad on a low or medium setting, or take a warm shower, for 15 to 20 minutes every 2 to 3 hours. Or you can buy single-use heat wraps that last up to 8 hours. You can also try an ice pack for 10 to 15 minutes every 2 to 3 hours. You can use an ice pack or a bag of frozen vegetables wrapped in a thin towel. There is not strong evidence that either heat or ice will help, but you can try them to see if they help. You may also want to try switching between heat and cold. Take pain medicine exactly as directed. If the doctor gave you a prescription medicine for pain, take it as prescribed. If you are not taking a prescription pain medicine, ask your doctor if you can take an njqu-hgi-sxgzoxc medicine. What else can you do? Stretch and exercise. Exercises that increase flexibility may relieve your pain and make it easier for your muscles to keep your spine in a good, neutral position. And don't forget to keep walking. Do self-massage. You can use self-massage to unwind after work or school or to energize yourself inthe morning. You can easily massage your feet, hands, or neck. Self-massage works best if you are in comfortable clothes and are sitting or lying in a comfortable position. Use oil or lotion to massage bare skin. Reduce stress. Back pain can lead to a vicious kotlik: Distress about the pain tenses the muscles in your back, which in turn causes more pain. Learn how to relax your mind and your muscles to lower your stress. Where can you learn more? Log into your personal health record on https://Bioinceptt.[employer] and enter Q517 in the Education box to learn more about Learning About Relief for Back Pain. Current as of: January 21, 2016 Content Version: 11.2 1423-2971 [employer]. Care instructions adapted under license by your healthcare professional. If you have questions about a medical condition or this instruction, always ask your healthcare professional. [employer] disclaims any warranty or liability for your use of this information. Nausea and Vomiting: Care Instructions Your Care Instructions When you are nauseated, you may feel weak and sweaty and notice a lot of saliva in your mouth. Nausea often leads to vomiting. Most of the time you do not need to worry about nausea and vomiting, butthey can be signs of other illnesses. Two common causes of nausea and vomiting are stomach flu and food poisoning. Nausea and vomiting from viral stomach flu will usually start to improve within 24 hours. Nausea and vomiting from food poisoning may last from 12 to 48 hours. The doctor has checked you carefully, but problems can develop later. If you notice any problems ornew symptoms, get medical treatment right away. Follow-up care is a abreu part of your treatment and safety. Be sure to make and go to all appointments, and call your doctor if you are having problems. It's also a good idea to know your test resultsand keep a list of the medicines you take. How can you care for yourself at home? To prevent dehydration, drink plenty of fluids, enough so that your urine is light yellow or clear like water. Choose water and other caffeine-free clear liquids until you feel better. If you have kidney, heart, or liver disease and have to limit fluids, talk with your doctor before you increase the amount of fluids you drink. Rest in bed until you feel better. When you are able to eat, try clear soups, mild foods, and liquids until all symptoms are gone for 12 to 48 hours. Other good choices include dry toast, crackers, cooked cereal, and gelatin dessert, such as Jell-O. When should you call for help? Call 911 anytime you think you may need emergency care. For example, call if: You passed out (lost consciousness). Call your doctor now or seek immediate medical care if: You have symptoms of dehydration, such as: Dry eyes and a dry mouth. Passing only a little dark urine. Feeling thirstier than usual. You have new or worsening belly pain. You have a new or higher fever. You vomit blood or what looks like coffee grounds. Watch closely for changes in your health, and be sure to contact your doctor if: You have ongoing nausea and vomiting. Your vomiting is getting worse. Your vomiting lasts longer than 2 days. You are not getting better as expected. Where can you learn more? Log into your personal health record on https://[employer] Over[employer] and enter H591 in the Education box to learn more about Nausea and Vomiting: Care Instructions. Current as of: January 25, 2016 Content Version: 11.2 2538-9087 [employer]. Care instructions adapted under license by your healthcare professional. If you have questions about a medical condition or this instruction, always ask your healthcare professional. [employer] disclaims any warranty or liability for your use of this information. Please follow up with your family doctor in 2 days for recheck. Return to ED in 24 hours for continued or worsening pain, uncontrolled vomiting, persistent fever above 101F or any other emergent concerns. in this encounter* Namita Florez PA-C - 02/07/2018 Formatting of this note may be different from the original. Skin Abscess: Care Instructions Your Care Instructions A skin abscess is a bacterial infection that forms a pocket of pus. A boil is a kind of skin abscess. The doctor may have cut an opening in the abscess so that the pus can drain out. You may have gauze in the cut so that the abscess will stay open and keep draining. You may need antibiotics. You will need to follow up with your doctor to make sure the infection has gone away. The doctor has checked you carefully, but problems can develop later. If you notice any problems ornew symptoms, get medical treatment right away. Follow-up care is a abreu part of your treatment and safety. Be sure to make and go to all appointments, and call your doctor if you are having problems. It's also a good idea to know your test resultsand keep a list of the medicines you take. How can you care for yourself at home? Apply warm and dry compresses, a heating pad set on low, or a hot water bottle 3 or 4 times a day for pain. Keep a cloth between the heat source and your skin. If your doctor prescribed antibiotics, take them as directed. Do not stop taking them just because you feel better. You need to take the full course of antibiotics. Take pain medicines exactly as directed. If the doctor gave you a prescription medicine for pain, take it as prescribed. If you are not taking a prescription pain medicine, ask your doctor if you can take an llrc-zpn-rgshdua medicine. Keep your bandage clean and dry. Change the bandage whenever it gets wet or dirty, or at least one time a day. If the abscess was packed with gauze: Keep follow-up appointments to have the gauze changed or removed. If the doctor instructed you to remove the gauze, gently pull out all of the gauze when your doctor tells you to. After the gauze is removed, soak the area in warm water for 15 to 20 minutes 2 times a day, until the wound closes. When should you call for help? Call your doctor now or seek immediate medical care if: ? You have signs of worsening infection, such as: Increased pain, swelling, warmth, or redness. Red streaks leading from the infected skin. Pus draining from the wound. A fever. ?Watch closely for changes in your health, and be sure to contact your doctor if: ? You do not get better as expected. Where can you learn more? Log into your personal health record on [email or web address] and enter D633 in the Education box to learn more about Skin Abscess: Care Instructions. Current as of: January 07, 2017 Content Version: 11.6 4608-7861 [employer]. Care instructions adapted under license by your healthcare professional. If you have questions about a medical condition or this instruction, always ask your healthcare professional. [employer] disclaims any warranty or liability for your use of this information. in this encounter* Attachments The following attachments cannot be sent through Care Everywhere. * Bacterial Vaginosis (Qatari) in this encounter* Attachments The following attachments cannot be sent through Care Everywhere. * Otitis Externa (Qatari) * Serous Otitis Media (Qatari) * Hypertension (Qatari) * Chlamydia (Qatari) documented in this encounter* Instructions* Damien Orozco - 11/27/2019 Do not wear contacts until treatment complete and symptom-free Follow-up with your ui ux developer for reevaluation * Attachments The following attachments cannot be sent through Care Everywhere. * Abscess: Skin (Qatari) * Conjunctivitis (Qatari) documented in this encounter Assessments Diagnosis Community acquired pneumonia , unspecified laterality - Primary Acute post-operative pain Abdominal pain, unspecified abdominal location Diagnosis Pre-operative examination - Primary Unspecified pre-operative examination Gallstones Calculus of gallbladder without mention of cholecystitis or obstruction Pre-operative cardiovascular examination Essential hypertension with goal blood pressure less than 130/80 Cigarette nicotine dependenc e without complication Morbid obesity with BMI of 4 0.0-44.9, adult (HCC) Diagnosis Symptomatic cholelithiasis Diagnosis Non-intractable vomiting wit h nausea, unspecified vomiting type - Primary Biliary colic Calculus of gallbladder without mention of cholecystitis or obstruction Calculus of gallbladder with out cholecystitis without obstruction Diagnosis Abdominal wall abscess - Bhumika norris Cellulitis and abscess of trunk Diagnosis Bacterial vaginosis- Primary Unspecified vaginitis and vulvovaginitis Diagnosis Medication refill- Primary Issue of repeat prescriptions Hypertension, unspecified type Recurrent acute serous otitis media of both ears Acute otitis externa of left ear, unspecified type Chlamydia Other specified chlamydial infection, in conditions classified elsewhere and of unspecified site Diagnosis Acute conjunctivitis of right eye, unspecified acute conjunctivitis type Leg abscess Summary Purpose Family History No Family History Records FoundNo Family History Records FoundNo Family History Records FoundNo Family History Records Found Advance Directives Latest Code Status on File Code Status Date Activated Date Inactivated Comments Full Code - Unverified 01/19/2016 4:39 PM 01/23/2016 12: 12 PM Full Code 01/12/2016 11:17 AM 01/18/2016 10:15 PM Full Code 01/10/2016 6:00 PM 01/12/2016 11:17 AM Full Code 09/02/2015 3:17 AM 09/04/2015 9:54 PM Documents on File Type Date Recorded Patient Shop Estimator Expl anation Advance Directives and Livin g Will 11/27/2019 2:51 AM Additional Source Comments ED Notes - Zahida Ray RN - 08/28/2017 1:08 AM XAVI Notes - Zahida Ray RN - 08/28/2017 12:05 AM XAVI Notes - Zahida Ray RN - 08/27/2017 11:30 PM EST Miscellaneous Notes (unrecog nized section and content) Patient is resting comfortably. Call light within reach. Patient updated on continued plan of care. Assessment unchanged. Pt returned to CT. Dr. Kay at bedside. Pt to Ct Pt ambulatory to the restroom with an upright steady gait to provide urine specimen. Formatting of this note may be different from the original. PCP - Physician No No chief complaint on file. HPI 21yo female with PMH listed below, is here for post op pain and fevers. Patient had a lap emigdio done by Dr. Ramsey on 08/21/2017. States she has noticed bruising around the incision site at the umbilicus. Patient states green drainage. Reports diffuse lower abdominal tenderness. Patient states it feels like burning sensation. Worse with movement or bending. Better with rest. Rates it a 6 out of 10. Patient reports nausea no vomiting. States she spiked a fever yesterday 102.3. Patient reports a cough since Thursday. Reporting yellow sputum production. No hemoptysis. Denies any chest pain or difficulty breathing. Denies any back pain. Denies any headaches, lightheadedness, dizziness, visual changes. Pt denies urinary complaints. Denies any vaginal complaints. Patient states she has not had a bowel movement in 10 days. States use stool softeners without relief. States she normally has a bowel movement every 4-5 days. Review of Systems Constitutional: Yes fevers, highest 102.3 yesterday. No unintentional weight change. Skin: No rash or color changes Eyes: No discharge ENMT: No drooling Respiratory: No stridor or hemoptysis Genitourinary: No obstructive symptoms or polyuria Endocrine: No polyphagia Neurologic: No new numbness or new face asymmetry. Psychiatric: No hallucinations Hematologic/Lymphatic: No abnormal or easy bruising Allergic/Immunologic: No hives Other pertinent positives and negatives in HPI Past Medical History Past Medical History: Diagnosis Date Bacterial vaginosis Cholelithiasis Gonorrhea Hypertension Leg fracture, right Morbid obesity with BMI of 40.0-44.9, adult (HCC) PID (pelvic inflammatory disease) depression 01/30/2016 meds in past-- resolved Tobacco Abuse Tobacco Abuse Trauma fell roller skating and broke ankle Varicella childhood Past Surgical History Past Surgical History: Procedure Laterality Date SECTION N/A 01/12/2016 Procedure: SECTION; Surgeon: Chioma Burleson MD; Location: [facility] OB OR; Service: CHOLECYSTECTOMY LAPAROSCOPIC N/A 08/21/2017 Procedure: CHOLECYSTECTOMY LAPAROSCOPIC; Surgeon: Quan Ramsey III, MD; Location: [facility] Main OR; Service: General Surgery EAR TUBE Bilateral ORIF ANKLE FRACTURE Right 09/02/2015 Procedure: ORIF RIGHT ANKLE FRACTURE; Surgeon: Saad Chavez MD; Location: [facility] Main OR; Service: tubes in ears WISDOM TOOTH EXTRACTION Family History Family History Problem Relation Age of Onset No Known Problems Mother No Known Problems Father No Known Problems Sister No Known Problems Brother Breast cancer Neg Hx Cancer Neg Hx Colon cancer Neg Hx Diabetes Neg Hx Ovarian cancer Neg Hx Stroke Neg Hx Uterine cancer Neg Hx Mental illness Neg Hx Hypertension Neg Hx Surgical complications Neg Hx Anesthesia problems Neg Hx Heart disease Neg Hx Clotting disorder Neg Hx Deep vein thrombosis Neg Hx Pulmonary embolism Neg Hx Social History Social History Social History Marital status: Single Spouse name: N/A Number of children: 0 Years of education: 12 Occupational History Not on file. Social History Main Topics Smoking status: Light Tobacco Smoker Packs/day: 0.50 Years: 2.00 Types: Cigarettes Smokeless tobacco: Never Used Alcohol use 0.0 oz/week Comment: rare Drug use: Yes Types: Marijuana Comment: ocasionally Sexual activity: Yes Partners: Male control/ protection: None Other Topics Concern Not on file Social History Narrative Lives with mother, 3 sisters and mothers boyfriend Allergies No Known Allergies Medications Karine Bauer Home Medication Instructions Prior to Surgery JORDANA:[id number] Printed on:08/28/17 2253 Medication Information Take last dose on Take the morning of surgery Comment(s) acetaminophen (TYLENOL) 325 MG tablet Take 650 mg by mouth every 6 (six) hours as needed for pain. azithromycin (ZITHROMAX) 250 MG tablet Take 1 (one) tablet (250 mg total) by mouth daily for 4 days. benzonatate (TESSALON) 100 MG capsule Take 1 (one) capsule (100 mg total) by mouth 3 (three) times a day as needed for cough. blood pressure monitor Kit 1 each by Miscellaneous route daily. docusate sodium (COLACE) 100 MG capsule Take 1 (one) capsule (100 mg total) by mouth 2 (two) times a day as needed. HYDROcodone-acetaminophen (NORCO) 5-325 mg per tablet Take 1 (one) tablet by mouth every 6 (six) hours as needed. labetalol (NORMODYNE) 200 MG tablet Take 500 mg by mouth 2 (two) times a day ReasonsHypertension. ondansetron (ZOFRAN, HYDROCHLORIDE,) 4 MG tablet Take 1 (one) tablet (4 mg total) by mouth every 8 (eight) hours as needed for nausea. oxyCODONE-acetaminophen (PERCOCET) 5-325 mg per tablet Take 1 (one) tablet by mouth every 6 (six) hours as needed for pain. Physical Exam Initial Vital Signs BP 128/87 Pulse 72 Temp 98.3 F (36.8 C ) (Oral) Resp 14 Ht 5' 6 LMP 07/12/2017 (Approximate) SpO2 100% Vital Signs During ED Visit (as charted by nursing) Patient Vitals for the past 24 hrs: BP Temp Temp src Pulse Resp SpO2 Height 08/28/17 0105 128/87 98.3 F (36.8 C ) Oral 72 - 100 % - 08/27/17 2207 135/67 98.3 F (36.8 C ) - 83 14 100 % 5' 6 Physical Exam Constitutional: She is oriented to person, place, and time. She appears well-developed and well-nourished. No distress. HENT: Head: Normocephalic and atraumatic. Right Ear: Hearing, tympanic membrane, external ear and ear canal normal. No lacerations. No drainage, swelling or tenderness. No foreign bodies. No mastoid tenderness. Tympanic membrane is not injected, not scarred, not perforated, not erythematous, not retracted and not bulging. Tympanic membrane mobility is normal. No middle ear effusion. No hemotympanum. No decreased hearing is noted. Left Ear: Hearing, tympanic membrane, external ear and ear canal normal. No lacerations. No drainage, swelling or tenderness. No foreign bodies. No mastoid tenderness. Tympanic membrane is not injected, not scarred, not perforated, not erythematous, not retracted and not bulging. Tympanic membrane mobility is normal. No middle ear effusion. No hemotympanum. No decreased hearing is noted. Nose: Nose normal. Right sinus exhibits no maxillary sinus tenderness and no frontal sinus tenderness. Left sinus exhibits no maxillary sinus tenderness and no frontal sinus tenderness. Mouth/Throat: Uvula is midline, oropharynx is clear and moist and mucous membranes are normal. She does not have dentures. No oral lesions. No trismus in the jaw. Normal dentition. No dental abscesses, uvula swelling, lacerations or dental caries. No oropharyngeal exudate, posterior oropharyngeal edema, posterior oropharyngeal erythema or tonsillar abscesses. Tonsils are 0 on the right. Tonsils are 0 on the left. No tonsillar exudate. Eyes: Conjunctivae, EOM and lids are normal. Pupils are equal, round, and reactive to light. Right eye exhibits no discharge. Left eye exhibits no discharge. No scleral icterus. Neck: Trachea normal, normal range of motion, full passive range of motion without pain and phonation normal. Neck supple. No JVD present. No tracheal tenderness, no spinous process tenderness and no muscular tenderness present. No neck rigidity. No tracheal deviation, no edema, no erythema and normal range of motion present. No thyromegaly present. Cardiovascular: Normal rate, regular rhythm, S1 normal, S2 normal and normal heart sounds. Exam reveals no gallop and no friction rub. No murmur heard. Pulmonary/Chest: Effort normal and breath sounds normal. No stridor. No respiratory distress. She has no wheezes. She has no rales. She exhibits no tenderness. Abdominal: Soft. Normal appearance and bowel sounds are normal. She exhibits no distension and no ascites. There is tenderness in the right lower quadrant, periumbilical area, suprapubic area and left lower quadrant. There is no rigidity, no rebound, no guarding, no CVA tenderness, no tenderness at McBurney's point and negative Duggan's sign. Musculoskeletal: Normal range of motion. She exhibits no edema or tenderness. Lymphadenopathy: She has no cervical adenopathy. Neurological: She is alert and oriented to person, place, and time. She has normal strength. No cranial nerve deficit or sensory deficit. She exhibits normal muscle tone. GCS eye subscore is 4. GCS verbal subscore is 5. GCS motor subscore is 6. Skin: Skin is warm, dry and intact. No rash noted. She is not diaphoretic. Psychiatric: She has a normal mood and affect. Her speech is normal and behavior is normal. Judgment and thought content normal. Cognition and memory are normal. Nursing note and vitals reviewed. IMPRESSION/ ED COURSE 21-year-old female evaluated for postop pain and cough. Patient is neurologically intact. No acute distress. Nontoxic in appearance. Afebrile 98.3. Patient is not tachycardic or tachypneic on exam satting 100% on room air. Lungs diminished in bases. CXR shows Suspected left lower lobe airspace opacity, potentially atelectasis, pneumonia, or aspiration. Abd soft, non distended, mildly tender lower abd and pain at the umbilicus incision site. No rebound tenderness, no guarding. No peritoneal signs. Normoactive bowel sounds. No vomiting. CT abdomen pelvis with IV contrast shows evidence of recent cholecystectomy. There are expected postoperative changes in the umbilicus with skin thickening and fat stranding. There is no postoperative fluid collection. Tiny fat containing umbilical hernia. There is a small low-attenuation postoperative fluid collection in the gallbladder fossa. This is not unusual status post recent cholecystectomy. There are no bubbles of gas to suggest infected fluid collection. No significant free fluid in the abdomen/pelvis. 3.5 cm right ovarian cyst/ dominant follicle. Patient 3 incision sites to the upper abdomen appears clean and dry with no surrounding erythema or edema noted. No signs of infection. Patient has tenderness to the incision site over the umbilicus without erythema or edema noted. No drainage. Patient's white count is normal. Hemoglobin stable. BMP unremarkable except for glucose of 105, BUN 6. Lactate normal. Urine negative. Urinalysis negative for infection, ketones, blood. Hepatic function panel is also unremarkable. Given patient's 3 day cough history with fevers will treat her for community-acquired pneumonia. Patient is stable for discharge home with outpatient follow-up with her PCP. Patient was also advised to contact her surgeon Dr. Ramsey tomorrow for close follow-up. Patient was also given strict precautions to return to the ED. Saw this patient Dr. Kay. . FINAL DIAGNOSIS SNOMED CT(R) 1. Community acquired pneumonia, unspecified laterality COMMUNITY ACQUIRED PNEUMONIA 2. Acute post-operative pain ACUTE POSTOPERATIVE PAIN 3. Abdominal pain, unspecified abdominal location ABDOMINAL PAIN Labs Reviewed URINALYSIS - Abnormal; Notable for the following: Result Value Squamous Epithelial 9 (*) All other components within normal limits Narrative: Microscopic examination is performed on all urinalysis samples and only positive findings are reported. The test for blood on the chemical analytic portion of urinalysis may also be positive due to hemoglobinuria and myoglobinuria and if red blood cells are present they are quantified by microscopic examination. BASIC METABOLIC PANEL - Abnormal; Notable for the following: Glucose 105 (*) BUN 6 (*) BUN/Creatinine Ratio 8.3 (*) All other components within normal limits Narrative: The eGFR should be used for monitoring renal function only and not for medication dosing. CBC WITH AUTO DIFFERENTIAL - Abnormal; Notable for the following: MCV 79.5 (*) All other components within normal limits HEPATIC FUNCTION PANEL - Normal LACTIC ACID, PLASMA - Normal POC , URINE - Normal RAINBOW DRAW Narrative: The following orders were created for panel order [place] Draw. Procedure Abnormality Status --------- ------ Lavender Top[[id number]] Final result Mint Green Top[[id number]] Final result Gold Top[[id number]] Final result Moran Top[[id number]] Final result Please view results for these tests on the individual orders. LAVENDER TOP MINT GREEN TOP GOLD TOP MORAN TOP CBC AND DIFFERENTIAL Narrative: The following orders were created for panel order CBC w/ Diff. Procedure Abnormality Status --------- ------ CBC Auto Differential[[id number]] Abnormal Final result Please view results for these tests on the individual orders. RAINBOW DRAW Narrative: The following orders were created for panel order [place] Draw. Procedure Abnormality Status --------- ------ Urine Culture Moran Conta...[[id number]] In process Please view results for these tests on the individual orders. URINE CULTURE MORAN CONTAINER Radiographic Imaging (if any) During ED Visit Medications Ordered/Given During ED Visit Medications sodium chloride 0.9% (NS) bolus 1,000 mL (0 mL Intravenous Stopped 08/28/17 0137) iopamidol (ISOVUE-370) 76 % injection 75 mL (75 mL Intravenous Contrast Administered 08/28/17 0003) ondansetron (ZOFRAN) injection 4 mg (4 mg Intravenous Given 08/27/17 853) fentaNYL (SUBLIMAZE) injection 50 mcg (50 mcg Intravenous Given 08/27/17 501) azithromycin (ZITHROMAX) tablet 500 mg (500 mg Oral Given 08/28/17 6728) Procedures Marian Fernandez, SIMON 08/28/17 6200 See triage note. Pt with scant amount of green drainage to umbilical incision. Steri strips otherwise intact. No callor, erythema, edema. + constipation x 10 days, used stool softeners without relief. Pt with productive cough of yellow sputum. + fevers Tmax 103F. Pt is resting on the cart in NAD at this time. MLP at bedside. POC explained. All needs met. Call light in reach. Will continue to monitor. Pt has not taken any antipyretics today, only oxycodone for pain. PIV blew, pressure dressing applied. Patient aware of need for UA specimen. Patient states had gallbladder removed on Thursday, states has had pain around incision site for a few days and is having some oozing around sutures. Patient denies chills at home, states had a fever of 102.3 yesterday and temp of 100 this morning. Patient reports nausea denies emesis. States has cold with cough and symptoms started after patient started coughing.in this encounter Formatting of this note may be different from the original. Brief Post Operative Note Patient Name: Karine Bauer : 1995 (21 y.o.) Date of Service: 08/21/2017 CSN: [id number] Procedure(s): LAPAROSCOPIC CHOLECYSTECTOMY Pre-Operative Diagnoses: * SYMPTOMATIC CHOLELITHIASIS K80.20 Post-Operative Diagnoses: * SAME Surgeon(s) and Role: * Giuseppe Prakash DO - Resident - Assisting * Quan Ramsey III, MD - Primary Anesthesiologist: Tushar Coker MD [employer]ION[employer] DRIVER: Devika Watt CRNA; Pauline Conley CRNA Skimmer Reverberatory: Funmilayo Duke RN Scrub Person: Funmilayo Ariza RN Operative findings: Cholelithiasis was confirmed in the operative specimen. The anatomy was otherwise normal. Intra and immediate post-operative complications: none Type of anesthesia used: General ET Estimated blood loss: refer to anesthesia record Estimated urine output: refer to anesthesia record Specimen(s): ID Type Source Tests Collected by Time Destination A : Tissue Gallbladder TISSUE EXAM Quan Ramsey III, MD 08/21/2017 0830 Implant(s): * No implants in log * Drain(s): none Wound(s): Quan Ramsey III, MD 08/21/2017 8:48 AM in this encounter I personally interviewed and I personally examined Karine Bauer I discussed the patient with IN HOME AIDE, Odilia Carreno. I agree with the assessment, plan, treatment, and disposition as noted. Physical examination and medical decision-making: Patient has mild right upper quadrant tenderness. She has no guarding, rebound, rigidity or peritonitis. She has a negative Duggan sign. She has no CVA tenderness. She has no suprapubic tenderness. Bowel sounds are active. Ultrasound gallbladder demonstrates cholelithiasis. There is no clear evidence of cholecystitis. Clinically the patient does not have cholecystitis. She has a benign abdominal examination. She has a normal white count. She has normal liver function testing. I am going to refer to outpatient general surgery for follow-up. She is given 24 follow-up instructions. She is return immediately for increasing pain or vomiting. . . Formatting of this note may be different from the original. ED PROVIDER NOTE [facility] EMERGENCY DEPARTMENT NAME: Karine Bauer AGE: 21 y.o. : 1995 VISIT DATE: 07/19/2017 CSN: [id number] PCP: Physician No Chief Complaint Patient presents with Chest Pain Emesis Back Pain HPI Patient arrives complaining of right lower back pain x 2.5 weeks, the pain is described as achy and is relieved with heat. Denies injury, denies numbness or tingling, denies radiation of pain, denies weakness, denies loss of bowel or bladder control. Patient reports nausea and vomiting since this morning, denies fevers or chills, denies abdominal pain, does report urinary frequency. Patient reports today at 1 PM she developed midsternal chest pain that she describes as pressure. Denies shortness of breath, denies cough or URI symptoms. Patient states she is concerned that she has gallbladder issues since her mother had similar symptoms and had cholecystitis. History provided by: Patient Past Medical History: Diagnosis Date Bacterial vaginosis Gonorrhea Leg fracture, right PID (pelvic inflammatory disease) depression 01/30/2016 Tobacco abuse Trauma fell roller skating and broke ankle Varicella childhood Past Surgical History: Procedure Laterality Date ANKLE FRACTURE SURGERY Right SECTION N/A 01/12/2016 Procedure: SECTION; Surgeon: Chioma Burleson MD; Location: [facility] OB OR; Service: EAR TUBE Bilateral ORIF ANKLE FRACTURE Right 09/02/2015 Procedure: ORIF RIGHT ANKLE FRACTURE; Surgeon: Saad Chavez MD; Location: [facility] Main OR; Service: tubes in ears WISDOM TOOTH EXTRACTION Family History Problem Relation Age of Onset Breast cancer Neg Hx Cancer Neg Hx Colon cancer Neg Hx Diabetes Neg Hx Ovarian cancer Neg Hx Stroke Neg Hx Uterine cancer Neg Hx Mental illness Neg Hx Hypertension Neg Hx Social History Social History Marital status: Single Spouse name: N/A Number of children: 0 Years of education: 12 Occupational History Not on file. Social History Main Topics Smoking status: Light Tobacco Smoker Packs/day: 0.50 Years: 2.00 Types: Cigarettes Smokeless tobacco: Never Used Alcohol use No Comment: rare Drug use: Yes Special: Marijuana Sexual activity: Yes Partners: Male control/ protection: None Other Topics Concern Not on file Social History Narrative Lives with mother, 3 sisters and mothers boyfriend Previous Medications ACETAMINOPHEN (TYLENOL) 325 MG TABLET Take 650 mg by mouth every 6 (six) hours as needed for pain. BLOOD PRESSURE MONITOR KIT 1 each by Miscellaneous route daily. LABETALOL (NORMODYNE) 200 MG TABLET Take 500 mg by mouth 2 (two) times a day ReasonsHypertension. NIFEDIPINE (PROCARDIA XL) 30 MG 24 HR TABLET Take 30 mg by mouth daily. No Known Allergies Review of Systems Constitutional: Negative. Negative for chills and fever. HENT: Negative. Eyes: Negative. Negative for visual disturbance. Respiratory: Negative. Negative for cough and shortness of breath. Cardiovascular: Positive for chest pain. Negative for palpitations and leg swelling. Gastrointestinal: Positive for nausea and vomiting. Negative for abdominal pain and diarrhea. Endocrine: Negative. Genitourinary: Positive for frequency. Negative for dysuria, flank pain and hematuria. Musculoskeletal: Positive for back pain. Skin: Negative. Allergic/Immunologic: Negative. Neurological: Negative. Negative for dizziness, light-headedness and headaches. Hematological: Negative. Psychiatric/Behavioral: Negative. Positives and pertinent negatives as per HPI. All other systems were reviewed and are negative. Patient Vitals for the past 24 hrs: BP Temp Temp src Pulse Resp SpO2 Height Weight 07/19/171944 98/78 - - 85 16 100 % - - 07/19/171937 - - - - 17 100 % - - 07/19/171936 95/78 - - - (!) 20 100 % - - 07/19/17 1715 136/83 - - 76 14 99 % - - 07/19/17 1712 - 98 F (36.7 C ) Oral 71 18 100 % 5' 6 116.1 kg (256 lb) Physical Exam Constitutional: She is oriented to person, place, and time. Vital signs are normal. She appears well-developed, well-nourished and obese. She is active. Non-toxic appearance. She does not have a sickly appearance. She does not appear ill. No distress. HENT: Head: Normocephalic and atraumatic. Eyes: EOM are normal. Pupils are equal, round, and reactive to light. Neck: Normal range of motion. Neck supple. Cardiovascular: Normal rate, regular rhythm, normal heart sounds, intact distal pulses and normal pulses. Pulses: Radial pulses are 2+ on the right side, and 2+ on the left side. Posterior tibial pulses are 2+ on the right side, and 2+ on the left side. No peripheral edema noted Pulmonary/Chest: Effort normal and breath sounds normal. No respiratory distress. She has no decreased breath sounds. She exhibits tenderness. Abdominal: Soft. Normal appearance and bowel sounds are normal. There is tenderness in the right upper quadrant and epigastric area. There is CVA tenderness (right sided). There is no rigidity and no guarding. Musculoskeletal: Normal range of motion. Lumbar back: She exhibits normal range of motion, no bony tenderness, no swelling, no edema, no deformity, no laceration, no spasm and normal pulse. Negative straight leg raise test bilaterally. Neurological: She is alert and oriented to person, place, and time. No sensory deficit. GCS eye subscore is 4. GCS verbal subscore is 5. GCS motor subscore is 6. Skin: Skin is warm, dry and intact. She is not diaphoretic. No pallor. Psychiatric: She is not actively hallucinating. She is attentive. Nursing note and vitals reviewed. Laboratory & Radiographic Imaging (if done): Results for orders placed or performed during the hospital encounter of 07/19/17 BMP Result Value Ref Range Sodium 138 135 - 145 mmol/L Potassium 4.5 3.5 - 5.1 mmol/L Chloride 102 98 - 108 mmol/L Bicarbonate 21 21 - 32 mmol/L Anion Gap 20 10 - 20 mmol/L Glucose 128 (H) 65 - 99 mg/dL BUN 6 (L) 8 - 25 mg/dL Creatinine 0.75 0.40 - 1.10 mg/dL eGFR 114 >=60 mL/min/1.73 m2 BUN/Creatinine Ratio 8.0 (L) 10.0 - 20.0 Calcium 9.4 8.4 - 10.2 mg/dL Troponin Result Value Ref Range Troponin T <0.010 <0.040 ng/mL Urinalysis Result Value Ref Range Color, Urine Yellow Colorless, Yellow Clarity, Urine Cloudy (A) Clear Specific [place] 1.010 1.005 - 1.025 pH, Urine 6.0 5.0 - 7.0 Protein, Urine Negative Negative mg/dL Glucose, Urine Negative Negative mg/dL Ketones, Urine Negative Negative mg/dL Bilirubin, Urine Negative Negative Urobilinogen, Urine <2.0 <2.0 mg/dL Blood, Urine Large (A) Negative Nitrite, Urine Negative Negative Leukocyte Esterase, Urine Negative Negative WBCs, Urine 6 (H) 0 - 5 /hpf RBCs, Urine 8 (H) 0 - 3 /hpf Bacteria, Urine Rare (A) None Seen /hpf Squamous Epithelial 5 (H) 0 - 4 /hpf Hyaline Casts 0-2 0 - 2 /lpf Mucus, Urine Many (A) None Seen, Rare /lpf Gold Top Result Value Ref Range Extra Tube Hold for add-ons. Light Blue Top Result Value Ref Range Extra Tube Hold for add-ons. Moran Top Result Value Ref Range Extra Tube Hold for add-ons. Lipase Result Value Ref Range Lipase 18 15 - 65 U/L Hepatic Function Panel Result Value Ref Range Total Protein 7.7 6.0 - 8.0 g/dL Albumin 4.2 3.2 - 5.2 g/dL Total Bilirubin <0.2 0.0 - 1.3 mg/dL Bilirubin, Direct <0.1 0.0 - 0.4 mg/dL Alkaline Phosphatase 70 40 - 140 U/L AST 24 0 - 45 U/L ALT 14 0 - 40 U/L POC Urine Result Value Ref Range POC Preg Test, Ur Negative Negative Internal Control Pass Spec Grav, UA 1.005 - 1.025 CBC Auto Differential Result Value Ref Range WBC 10.83 4.50 - 11.00 K/mcL RBC 5.36 (H) 4.00 - 5.20 M/mcL Hemoglobin 13.7 12.0 - 16.0 g/dL Hematocrit 42.4 36.0 - 46.0 % MCV 79.1 (L) 80.0 - 100.0 fL MCH 25.6 (L) 26.0 - 34.0 pg MCHC 32.3 31.0 - 37.0 g/dL Platelets 246 150 - 400 K/mcL RDW - CV 13.9 11.6 - 14.8 % MPV 11.4 9.0 - 15.5 fL Neutrophils 74.3 % Lymphocytes 16.9 % Monocytes 6.3 % Eosinophils 1.7 % Basophils 0.5 % IG Percent 0.30 % Neutrophils Abs 8.06 (H) 1.70 - 7.00 K/mcL Lymphocytes Abs 1.83 0.90 - 4.00 K/mcL Monocytes Abs 0.68 0.30 - 0.90 K/mcL Eosinophils Abs 0.18 0.00 - 0.50 K/mcL Basophils Abs 0.05 0.00 - 0.30 K/mcL IG Absolute 0.03 0.00 - 0.30 K/mcL Nucleated RBC 0.0 % Nucleated RBC Abs 0.00 0.00 - 0.00 K/mcL XR Chest AP/PA and LAT Final Result No acute process. Workstation ID: [id number] US Abdomen Limited Study (Results Pending) Procedures MDM 21-year-old female presents to the ED complaining of right lower back pain x 2.5 weeks, the pain is described as achy and is relieved with heat. Denies injury, denies numbness or tingling, denies radiation of pain, denies weakness, denies loss of bowel or bladder control. Patient reports nausea and vomiting since this morning, denies abdominal pain, does report urinary frequency. Patient reports today at 1 PM she developed midsternal chest pain that she describes as pressure. Denies shortness of breath, denies cough or URI symptoms. Patient states she is concerned that she has gallbladder issues since her mother had similar symptoms and had cholecystitis. Patient is calm with no distress noted, nontoxic in appearance. She is eating Reeses cups when I enter the room. Chest pain is reproducible to palpation, heart sounds regular, pulses strong. Patient exhibits right upper quadrant and epigastric abdominal tenderness with palpation, patient exhibits right-sided CVA tenderness. No midline lumbar tenderness, lower extremities are strong with no weakness noted, pulses strong, negative straight leg raise test bilaterally. Troponin negative. CBC, BMP, hepatic function panel, lipase, and UA unremarkable. Urine test negative. Chest x-ray unremarkable. EKG- No acute event, see ED Attending's interpretation. Gallbladder ultrasound pending. Disposition to be determined by ED attending ED Course . . Clinical Impression: No diagnosis found. Follow-up Information Follow-up information has not been specified. New Prescriptions No medications on file (Please note that portions of this note may have been completed with a voice recognition software. Efforts were made to correct any errors, but occasionally words are mis-transcribed.) Odilia Carreno, SIMON 07/19/172058 Pt presents today with abdominal, and back pain. Back pain to mid/lower area that shoots up her spine and has been present for 2 weeks. Declines trauma to area or any heavy lifting. Chest pain is located mid sternal and radiates to neck rates this 4/10, was an 8/10 but states that she took some Vicodin earlier and that has helped decrease her pain some. Admits to loss of appetite and that she hasn't been drinking much fluids. Abdomen is soft and is tender in the RUQ. Denies hematuria, fever, chills. Mid/lower back pain started last night, atraumatically, no heavy lifting besides doing laundry. This morning started having generalized chest heaviness with nausea. States she had preeclampsia during her last year but has no other cardiac hx. Denies SOB. States pain is 10/10. Nothing makes it better or worse. Pt smokes marijuana frequently. Denies abd pain, cough, fevers, or sick contacts.in this encounter Associated Order(s): US ED-MUSCULOSKELETAL; INCISION AND DRAINAGE Formatting of this note may be different from the original. ED PROVIDER NOTE [facility] EMERGENCY DEPARTMENT NAME: Karine Bauer AGE: 22 y.o. : 1995 VISIT DATE: 02/07/2018 CSN: [id number] PCP: Physician No Chief Complaint Patient presents with Abdominal Pain History provided by: Patient and significant other Abdominal Pain Associated symptoms: nausea and vomiting Associated symptoms: no chills and no fever 22-year-old -[place] female presents for evaluation of an abdominal wall abscess. She localizes this to her left suprapubic region. Says the area became tender about 1 week ago, she noticed swelling about 3 days ago, states that she had some spontaneous purulent drainage earlier today. Has had 1 abscess in the past. Denies any history of MRSA. Denies fevers or chills. Does admit to nausea and vomiting. Denies any other complaints. Arrives with normal vital signs. Is afebrile, is not tachycardic. Past Medical History: Diagnosis Date Bacterial vaginosis Cholelithiasis Gonorrhea Hypertension Leg fracture, right Morbid obesity with BMI of 40.0-44.9, adult (HCC) PID (pelvic inflammatory disease) depression 01/30/2016 meds in past-- resolved Tobacco Abuse Tobacco Abuse Trauma fell roller skating and broke ankle Varicella childhood Past Surgical History: Procedure Laterality Date SECTION N/A 01/12/2016 Procedure: SECTION; Surgeon: Chioma Burleson MD; Location: [facility] OB OR; Service: CHOLECYSTECTOMY LAPAROSCOPIC N/A 08/21/2017 Procedure: CHOLECYSTECTOMY LAPAROSCOPIC; Surgeon: Quan Ramsey III, MD; Location: [facility] Main OR; Service: General Surgery EAR TUBE Bilateral ORIF ANKLE FRACTURE Right 09/02/2015 Procedure: ORIF RIGHT ANKLE FRACTURE; Surgeon: Saad Chavez MD; Location: [facility] Main OR; Service: tubes in ears WISDOM TOOTH EXTRACTION Family History Problem Relation Age of Onset No Known Problems Mother No Known Problems Father No Known Problems Sister No Known Problems Brother Breast cancer Neg Hx Cancer Neg Hx Colon cancer Neg Hx Diabetes Neg Hx Ovarian cancer Neg Hx Stroke Neg Hx Uterine cancer Neg Hx Mental illness Neg Hx Hypertension Neg Hx Surgical complications Neg Hx Anesthesia problems Neg Hx Heart disease Neg Hx Clotting disorder Neg Hx Deep vein thrombosis Neg Hx Pulmonary embolism Neg Hx Social History Social History Marital status: Single Spouse name: N/A Number of children: 0 Years of education: 12 Occupational History Not on file. Social History Main Topics Smoking status: Light Tobacco Smoker Packs/day: 0.50 Years: 2.00 Types: Cigarettes Smokeless tobacco: Never Used Alcohol use 0.0 oz/week Comment: rare Drug use: Yes Types: Marijuana Comment: ocasionally Sexual activity: Yes Partners: Male control/ protection: None Other Topics Concern Not on file Social History Narrative Lives with mother, 3 sisters and mothers boyfriend Previous Medications ACETAMINOPHEN (TYLENOL) 325 MG TABLET Take 650 mg by mouth every 6 (six) hours as needed for pain. BENZONATATE (TESSALON) 100 MG CAPSULE Take 1 (one) capsule (100 mg total) by mouth 3 (three) times a day as needed for cough. BLOOD PRESSURE MONITOR KIT 1 each by Miscellaneous route daily. HYDROCODONE-ACETAMINOPHEN (NORCO) 5-325 MG PER TABLET Take 1 (one) tablet by mouth every 6 (six) hours as needed. LABETALOL (NORMODYNE) 200 MG TABLET Take 500 mg by mouth 2 (two) times a day ReasonsHypertension. ONDANSETRON (ZOFRAN, HYDROCHLORIDE,) 4 MG TABLET Take 1 (one) tablet (4 mg total) by mouth every 8 (eight) hours as needed for nausea. OXYCODONE-ACETAMINOPHEN (PERCOCET) 5-325 MG PER TABLET Take 1 (one) tablet by mouth every 6 (six) hours as needed for pain. No Known Allergies Review of Systems Constitutional: Negative. Negative for chills and fever. HENT: Negative. Eyes: Negative. Respiratory: Negative. Gastrointestinal: Positive for nausea and vomiting. Negative for abdominal pain. Endocrine: Negative. Genitourinary: Negative. Musculoskeletal: Negative. Skin: Positive for color change. Allergic/Immunologic: Negative. Neurological: Negative. Hematological: Negative. Psychiatric/Behavioral: Negative. Positives and pertinent negatives as per HPI. All other systems were reviewed and are negative. Patient Vitals for the past 24 hrs: BP Temp Temp src Pulse Resp SpO2 Height Weight 02/07/18 1746 132/80 98.7 F (37.1 C ) Oral 94 18 96 % 5' 6 112 kg (247 lb) Physical Exam Constitutional: She is oriented to person, place, and time. She appears well-developed and well-nourished. HENT: Head: Atraumatic. Eyes: Conjunctivae are normal. Neck: Normal range of motion. Neck supple. Cardiovascular: Regular rhythm. Pulmonary/Chest: Effort normal and breath sounds normal. No respiratory distress. Abdominal: There is no tenderness. Musculoskeletal: Normal range of motion. Neurological: She is alert and oriented to person, place, and time. Skin: Skin is warm and dry. Psychiatric: She has a normal mood and affect. Her behavior is normal. Nursing note and vitals reviewed. Laboratory & Radiographic Imaging (if done): Results for orders placed or performed during the hospital encounter of 02/07/18 Chem 7 Result Value Ref Range Sodium 136 135 - 145 mmol/L Potassium 4.1 3.5 - 5.1 mmol/L Chloride 102 98 - 108 mmol/L Bicarbonate 23 21 - 32 mmol/L Creatinine 0.63 0.40 - 1.10 mg/dL Glucose 98 65 - 99 mg/dL BUN 6 (L) 8 - 25 mg/dL eGFR 128 >=60 mL/min/1.73 m2 BUN/Creatinine Ratio 9.5 (L) 10.0 - 20.0 Anion Gap 15 10 - 20 mmol/L CBC Auto Differential Result Value Ref Range WBC 9.06 4.50 - 11.00 K/mcL RBC 4.79 4.00 - 5.20 M/mcL Hemoglobin 12.8 12.0 - 16.0 g/dL Hematocrit 39.4 36.0 - 46.0 % MCV 82.3 80.0 - 100.0 fL MCH 26.7 26.0 - 34.0 pg MCHC 32.5 31.0 - 37.0 g/dL Platelets 192 150 - 400 K/mcL RDW - CV 13.9 11.6 - 14.8 % MPV 12.2 9.0 - 15.5 fL Neutrophils 64.5 % Lymphocytes 25.5 % Monocytes 7.0 % Eosinophils 2.0 % Basophils 0.6 % IG Percent 0.40 % Neutrophils Abs 5.85 1.70 - 7.00 K/mcL Lymphocytes Abs 2.31 0.90 - 4.00 K/mcL Monocytes Abs 0.63 0.30 - 0.90 K/mcL Eosinophils Abs 0.18 0.00 - 0.50 K/mcL Basophils Abs 0.05 0.00 - 0.30 K/mcL IG Absolute 0.04 0.00 - 0.30 K/mcL Nucleated RBC 0.0 % Nucleated RBC Abs 0.00 0.00 - 0.00 K/mcL No orders to display US ED Musculoskeletal Date/Time: 02/07/2018 6:50 PM Performed by: NAMITA FLOREZ Authorized by: CHIOMA CHADWICK Procedure details: Procedural attestation: A teaching ultrasound was performed. The patient was made aware that no clinical decisions were made from this ultrasound Indications: abscess Transverse view: Visualized Longitudinal view: Visualized Comments: Fluid collection appreciated. Incision/Drainage Date/Time: 02/07/2018 7:58 PM Performed by: NAMITA FLOREZ Authorized by: CHIOMA CHADWICK Verbal consent: obtained Consent given by: patient Type: abscess Body area: trunk Location details: abdomen Anesthesia: local infiltration Anesthesia: Local Anesthetic: lidocaine 1% with epinephrine Anesthetic total: 3 mL Patient sedated: no Skin preparation: Betadine Scalpel size: 11 Incision type: single straight Incision depth: dermal Complexity: simple Drainage: purulent and bloody Drainage amount: scant Patient tolerance: Patient tolerated the procedure well with no immediate complications MDM 22-year-old healthy -[place] female presents with abdominal wall abscess 1 week. There was no fluctuance appreciated but ultrasound did reveal a fluid collection. Incision and drainage was performed. Wound culture pending. Received first dose of Bactrim here. Will be discharged home. Naproxen she is seen for pain. She does not currently have a family doctor for follow-up. I recommended that she return if the area becomes more uncomfortable, enlarges in size, she developed fevers, or chills. The plan is discussed with patient and her significant other who accompanied her to the ED and they agree. . Clinical Impression: SNOMED CT(R) 1. Abdominal wall abscess ABSCESS OF ABDOMINAL WALL Follow-up Information 1. [facility] Emergency Department. Specialty: Emergency Medicine Why: As needed, If symptoms worsen [address] [address] Contact information for after-discharge care Follow-up information has not been specified. New Prescriptions NAPROXEN (EC NAPROSYN) 500 MG EC TABLET Take 1 (one) tablet (500 mg total) by mouth 2 (two) times a day with meals for 7 days. SULFAMETHOXAZOLE-TRIMETHOPRIM (BACTRIM DS,SEPTRA DS) 800-160 MG PER TABLET Take 1 (one) tablet by mouth 2 (two) times a day for 7 days. (Please note that portions of this note may have been completed with a voice recognition software. Efforts were made to correct any errors, but occasionally words are mis-transcribed.) Namita Florez PA-C 02/07/181957 I personally interviewed the patient. I personally examined the patient. I discussed the patient with IN HOME AIDE/PA. I agree with the IN HOME AIDE/PA treatment plan. I agree with the IN HOME AIDE/PA plan of care. I agree with the IN HOME AIDE/PA dispo as documented. The patient complains today of I had a wound in my groin that was draining pus On exam patient awake interactive in no acute distress. She has an area of tenderness induration in her left groin just above her pubic hairline. (if applicable) The note was written using the voice recognition software, Phizzle. Pt reports abdominal pain and swelling. She reports an infection in my uterus two years ago after my c section. Reports emesis and lower abdominal swellingin this encounter I personally interviewed the patient. I personally examined the patient. I discussed the patient with IN HOME AIDE/PA. I agree with the IN HOME AIDE/PA treatment plan. I agree with the IN HOME AIDE/PA plan of care. I agree with the IN HOME AIDE/PA dispo as documented. This patient arrives for evaluation of her abdominal pain. She states that the Nexplanon control device have been broken in her left arm, and she thinks that this may be why she is having vaginal bleeding, but she does not relate this to her abdominal pain. She says that she noticed today that her labia were swollen, and her abdominal pain has worsened. She does not have any guarding or my exam and she has tenderness throughout the abdominal exam just inferior to the umbilicus. She has no increased work of breathing, she has clear breath sounds bilaterally, and she has no CVA tenderness bilaterally. She has no distal pitting edema. She has scars about her right ankle consistent with old ankle fracture and subsequent surgery. I discussed with her her negative imaging results, and at this point her symptoms may be suggestive of bacterial vaginosis and vaginal swab demonstrates clue cells. She will be treated with Flagyl, and advised to follow with gynecology regarding her generalized abdominal pain as it appears more related to pelvic discomfort. . in this encounter Quan Ramsey III, MD - 08/21/2017 7:43 AM Fitz Keller MD - 08/21/2017 6:25 AM EST H&P Notes (unrecognized sect ion and content) INTERVAL HISTORY AND PHYSICAL Patient Name: Karine Bauer Admit Date: [id number] MR #: [id number] : 1995 The H&P has been reviewed and the patient has been examined. I concur with the findings of the H&P. There are no significant changes. It is appropriate to proceed with the planned procedure. Quan Ramsey III, MD 08/21/2017 7:43 AM Formatting of this note may be different from the original. Assessment and Plan 1. Pre-operative examination Preoperative medical risk stratification indicates patient is at acceptable risk for elective minor surgery with risk factors described below pending Labs. 2. Gallstones Plan surgical correction. Dr. Ramsey. Prophylaxis for prevention of deep vein thrombosis per primary surgical team. Please follow the 2012 ACCP guidelines. She will be at a higher risk due to her morbid obesity. 3. Pre-operative cardiovascular examination This patient has no active cardiac conditions and would be considered at a low risk for a major adverse cardiac event(MACE) based on a revised cardiac risk index score of 0, in addition is asymptomatic with greater than 4 METS of functional capacity and therefore is at acceptable cardiac risk for elective surgery based on 2014 ACC/AHA guidelines. 4. Essential hypertension with goal blood pressure less than 130/80 Well controlled and optimized for surgery on home regimen, normodyne. Will need to check perioperative BP's. The last BP was 113/67. 5. Cigarette nicotine dependence without complication No SOB or wheezing today. 6. Morbid obesity with BMI of 40.0-44.9, adult (HCC) BMI is 40.84. She did score HIGH risk for JUAN on our screening tool. This condition will require close post operative monitoring in recovery. Chief Complaint Patient presents with Pre-operative Medical Risk Stratification History of Present Illness Karine Bauer is a 21 y.o. female who presents for preoperative medical risk stratification consult at the request of Quan Ramsey III, MD prior to CHOLECYSTECTOMY LAPAROSCOPIC--08/21/2017--. Intermittent episodes of severe RUQ pain that radiates to back for many years. Evaluation indicated gallbladder stones and sludge; for L/S cholecystectomy. She has done well with anesthesia in the past. Her medical issues including hypertension are stable. Please see below regarding status of active medical conditions and assessment and plan regarding details of preoperative medical risk stratification. Past Medical History: Diagnosis Date Bacterial vaginosis Cholelithiasis Gonorrhea Hypertension Leg fracture, right Morbid obesity with BMI of 40.0-44.9, adult ([facility]) PID (pelvic inflammatory disease) depression 01/30/2016 meds in past-- resolved Tobacco Abuse Tobacco Abuse Trauma fell roller skating and broke ankle Varicella childhood Past Medical History Pertinent Negatives: Diagnosis Date Noted Bleeding disorder ([facility]) 08/21/2017 Complication of anesthesia 08/21/2017 Coronary artery disease 09/18/2015 Deep vein thrombosis ([facility]) 09/18/2015 Family history of bleeding disorder 08/21/2017 History of blood transfusion 08/21/2017 No blood products 08/21/2017 Pulmonary embolism ([facility]) 08/21/2017 Sleep apnea, obstructive 09/02/2015 Past Surgical History: Procedure Laterality Date SECTION N/A 01/12/2016 Procedure: SECTION; Surgeon: Chioma Burleson MD; Location: [facility] OB OR; Service: EAR TUBE Bilateral ORIF ANKLE FRACTURE Right 09/02/2015 Procedure: ORIF RIGHT ANKLE FRACTURE; Surgeon: Saad Chavez MD; Location: [facility] Main OR; Service: tubes in ears WISDOM TOOTH EXTRACTION Social History Substance Use Topics Smoking status: Light Tobacco Smoker Packs/day: 0.50 Years: 2.00 Types: Cigarettes Smokeless tobacco: Never Used Alcohol use 0.0 oz/week Comment: rare Family History Problem Relation Age of Onset No Known Problems Mother No Known Problems Father No Known Problems Sister No Known Problems Brother Breast cancer Neg Hx Cancer Neg Hx Colon cancer Neg Hx Diabetes Neg Hx Ovarian cancer Neg Hx Stroke Neg Hx Uterine cancer Neg Hx Mental illness Neg Hx Hypertension Neg Hx Surgical complications Neg Hx Anesthesia problems Neg Hx Heart disease Neg Hx Clotting disorder Neg Hx Deep vein thrombosis Neg Hx Pulmonary embolism Neg Hx @ Prior to Admission medications Medication Sig Taking? Dose Freq labetalol (NORMODYNE) 200 MG tablet Take 500 mg by mouth 2 (two) times a day ReasonsHypertension. Yes 500 mg, Oral, 2 times daily acetaminophen (TYLENOL) 325 MG tablet Take 650 mg by mouth every 6 (six) hours as needed for pain. 650 mg, Oral, Every 6 hours PRN blood pressure monitor Kit 1 each by Miscellaneous route daily. 1 each, Miscellaneous, Daily HYDROcodone-acetaminophen (NORCO) 5-325 mg per tablet Take 1 (one) tablet by mouth every 6 (six) hours as needed. 1 tablet, Oral, Every 6 hours PRN ondansetron (ZOFRAN, HYDROCHLORIDE,) 4 MG tablet Take 1 (one) tablet (4 mg total) by mouth every 8 (eight) hours as needed for nausea. 4 mg, Oral, Every 8 hours PRN NIFEdipine (PROCARDIA XL) 30 MG 24 hr tablet Take 30 mg by mouth daily. 30 mg, Oral, Daily No Known Allergies Review of Systems Constitution: (negative) HENT: (negative) Eyes: (negative) Respiratory: (negative) Cardiovascular: (negative) - Exercise capacity: Greater than 4 METS Gastrointestinal: (negative) Genitourinary: (negative) Musculoskeletal: (negative) Skin: (negative) Neurological: (negative) Hematological: (negative) Physical Exam BP 113/67 Pulse 88 Temp 98.1 F (36.7 C ) (Temporal) Resp 16 Ht 5' 6 Wt 115.9 kg (255 lb 8 oz) SpO2 98% BMI 41.24 kg/m General - No Apparent Distress, well developed, well nourished. Vitals reviewed. Skin - No Rash, Normal Turgor Eyes - Pupils Equal, Conjunctiva Clear ENT - External Ears Normal, Hearing Normal Neck - Trachea Midline, No TMG Cardiovascular - Regular Rate and Rhythm, No Murmurs, Gallops, or Rubs, No Peripheral Edema Respiratory - CTA, Normal Resp. Effort GI - Soft Nontender, Positive Bowel Sounds, No Hepatosplenomegaly Musculoskeletal - Dorsiflexion Intact, No Calf Tenderness Neuro/Psych - A&Ox3, Appropriate Mood and Affect Data Preprocedure Sleep Apnea Assessment - High Risk 3/3 Sleep Apnea in the patient's Active Problem List or Medical History: no 1. History of apparent airway obstruction during sleep: (1 point for this category) Do you snore frequently, or snore loud enough to be heard through a closed door?: no Do you awaken from sleep with a choking sensation or have periods during sleep when someone has observed you pausing between breaths?: no 2. Somnolence of the patient: (1 point for this category) Do you find yourself frequently sleepy despite adequate hours of sleep the night before?: yes Do you fall asleep easily while: watching TV, reading, riding in or driving a car?: no 3. Predisposing physician characteristics: (1 point for this category, 2 points if the BMI ? 40) BMI (Calculated): 41.3 Neck Circumference (inches): 15 inches Recent Results (from the past 89113 hours) XR CHEST AP/PA AND LAT 07/19/2017 (Final) Status: Normal Narrative EXAMINATION: TWO VIEWS OF THE CHEST 07/19/2017 5:35 pm COMPARISON: 06/23/2007 HISTORY: ORDERING SYSTEM PROVIDED HISTORY: cp; TECHNOLOGIST PROVIDED HISTORY: Reason for Exam: cp Illness/Other Acuity: Acute Cancer History: unk Surgery, Radiation History: unk Type of Encounter: Initial Additional signs and symptoms: pt c/o intermittent lower back pain x2 wks, states this AM she felt like something was sitting on her chest and she had multiple episodes of vomitting FINDINGS: The lungs are without acute focal process. There is no effusion or pneumothorax. The cardiomediastinal silhouette is without acute process. The osseous structures are without acute process. Impression No acute process. Workstation ID: [id number] DATA SECTION LABS ORDERED AND PENDING PULSE OXIMETRY 98% On RA EKG INDEPENDENT INTERPRETATION Done 07/2017. NSR. No acute changes. OUTSIDE RECORDS REQUESTED None. OLD RECORD SUMMARY None.in this encounter Valentina Livingston RN - 08/21/2017 6:27 AM EST Nursing Notes (unrecognized section and content) Here with mom and 12 year old sister, dad may be coming. Nate Logan and family has belongings.in this encounter INFORMATION SOURCE (unrecogn ized section and content) DATE CREATED AUTHOR 02/23/2018 [facility] DATE CREATED AUTHOR AUTHOR'S ORGANIZ ATION 11/25/2018 [facility] DATE CREATED AUTHOR AUTHOR'S ORGANIZ ATION 04/08/2019 [facility] DATE CREATED AUTHOR AUTHOR'S ORGANIZ ATION 11/27/2019 [facility] Reason for Visit (unrecogniz ed section and content) Reason Comments Abdominal Pain Reason Comments Otalgia Reason Comments Eye Drainage Abscess Marixa Senior RN - 11/23/2018 1:55 AM Ruel Post PA-C - 11/23/2018 12:25 AM Marixa Knight RN - 11/22/2018 11:17 PM Efra Long RN - 11/22/2018 10:03 PM EDT ED Notes (unrecognized secti on and content) PCP - Physician No Chief Complaint Patient presents with Abdominal Pain HPI This is a 23-year-old female with a history of cholelithiasis and endometriosis she is also had gonorrhea. Patient is also had pelvic inflammatory disease. She comes in saying for 2 days she is been having 7 out of 10 diffuse abdominal pain she denies nausea vomiting diarrhea constipation. She is been having some pressure with urination and when she tries to pass gas she has pressure in her abdomen. She is also noticed swelling in her vagina but she denies any vaginal discharge. Tylenol has not helped. She says she is been evaluated for this before no one is ever figure out what is wrong and then it went away but then came back 2 days ago. Sensation is been constant. She has had a but no other surgeries on her abdomen she has no other complaints this time. Review of Systems Constitutional: No recent unexplained weight loss Skin: No color changes Eyes: No discharge HENT: No drooling Respiratory: No stridor Genitourinary: No obstructive symptoms Endocrine: No polyphagia Neurologic: No new face asymmetry Psychiatric: No self injury Hematologic/Lymphatic: No new easy bruising Allergic/Immunologic: No urticaria Past Medical History Past Medical History: Diagnosis Date Bacterial vaginosis Cholelithiasis Endometriosis Gonorrhea Hypertension Leg fracture, right Morbid obesity with BMI of 40.0-44.9, adult (HCC) PID (pelvic inflammatory disease) depression 01/30/2016 meds in past-- resolved Tobacco Abuse Tobacco Abuse Trauma fell roller skating and broke ankle Varicella childhood Past Surgical History Past Surgical History: Procedure Laterality Date SECTION N/A 01/12/2016 Procedure: SECTION; Surgeon: Chioma Burleson MD; Location: [facility] OB OR; Service: CHOLECYSTECTOMY LAPAROSCOPIC N/A 08/21/2017 Procedure: CHOLECYSTECTOMY LAPAROSCOPIC; Surgeon: Quan Ramsey III, MD; Location: [facility] Main OR; Service: General Surgery D&C (DIL & CURETTAGE, SHARP W/ SUCTION) x2 EAR TUBE Bilateral ORIF ANKLE FRACTURE Right 09/02/2015 Procedure: ORIF RIGHT ANKLE FRACTURE; Surgeon: Saad Chavez MD; Location: [facility] Main OR; Service: tubes in ears WISDOM TOOTH EXTRACTION Family History Family History Problem Relation Age of Onset No Known Problems Mother No Known Problems Father No Known Problems Sister No Known Problems Brother Breast cancer Neg Hx Cancer Neg Hx Colon cancer Neg Hx Diabetes Neg Hx Ovarian cancer Neg Hx Stroke Neg Hx Uterine cancer Neg Hx Mental illness Neg Hx Hypertension Neg Hx Surgical complications Neg Hx Anesthesia problems Neg Hx Heart disease Neg Hx Clotting disorder Neg Hx Deep vein thrombosis Neg Hx Pulmonary embolism Neg Hx Social History Social History Socioeconomic History Marital status: Single Spouse name: Not on file Number of children: 0 Years of education: 12 Highest education level: Not on file Social Needs Financial resource strain: Not on file Food insecurity - worry: Not on file Food insecurity - inability: Not on file Transportation needs - medical: Not on file Transportation needs - non-medical: Not on file Occupational History Not on file Tobacco Use Smoking status: Current Every Day Smoker Packs/day: 0.50 Years: 5.00 Pack years: 2.50 Types: Cigarettes Smokeless tobacco: Never Used Substance and Sexual Activity Alcohol use: Yes Alcohol/week: 0.0 oz Comment: rare Drug use: Yes Types: Marijuana Comment: ocasionally Sexual activity: Yes Partners: Male control/protection: None Other Topics Concern Not on file Social History Narrative Lives with mother, 3 sisters and mothers boyfriend Allergies No Known Allergies Medications Karine Bauer Home Medication Instructions Prior to Surgery JORDANA:[id number] Printed on:11/23/18 0348 Medication Information Take last dose on Take the morning of surgery Comment(s) acetaminophen (TYLENOL) 325 MG tablet Take 650 mg by mouth every 6 (six) hours as needed for pain. benzonatate (TESSALON) 100 MG capsule Take 1 (one) capsule (100 mg total) by mouth 3 (three) times a day as needed for cough. blood pressure monitor Kit 1 each by Miscellaneous route daily. HYDROcodone-acetaminophen (NORCO) 5-325 mg per tablet Take 1 (one) tablet by mouth every 6 (six) hours as needed. labetalol (NORMODYNE) 200 MG tablet Take 500 mg by mouth 2 (two) times a day ReasonsHypertension. metroNIDAZOLE (FLAGYL) 500 MG tablet Take 1 (one) tablet (500 mg total) by mouth 2 (two) times a day with meals for 7 days . ondansetron (ZOFRAN, HYDROCHLORIDE,) 4 MG tablet Take 1 (one) tablet (4 mg total) by mouth every 8 (eight) hours as needed for nausea. oxyCODONE-acetaminophen (PERCOCET) 5-325 mg per tablet Take 1 (one) tablet by mouth every 6 (six) hours as needed for pain. Physical Exam Initial Vital Signs BP 127/82 (BP Location: Left arm, Patient Position: Sitting) Pulse 82 Temp 98.1 F (36.7 C) (Oral) Resp 14 Ht 5' 6 Wt 99.8 kg (220 lb) SpO2 100% BMI 35.51 kg/m Vital Signs During ED Visit (as charted by nursing) Patient Vitals for the past 24 hrs: BP Temp Temp src Pulse Resp SpO2 Height Weight 11/22/18 2230 127/82 98.1 F (36.7 C) Oral 82 14 100 % 5' 6 99.8 kg (220 lb) Physical Exam Constitutional: She is oriented to person, place, and time. She appears well-developed and well-nourished. No distress. HENT: Head: Normocephalic and atraumatic. Right Ear: External ear normal. Left Ear: External ear normal. Nose: Nose normal. Mouth/Throat: Oropharynx is clear and moist. Eyes: Conjunctivae are normal. Pupils are equal, round, and reactive to light. No scleral icterus. Neck: Neck supple. No tracheal deviation present. No thyromegaly present. Cardiovascular: Normal rate, regular rhythm and normal heart sounds. Exam reveals no gallop and no friction rub. No murmur heard. Pulmonary/Chest: Effort normal and breath sounds normal. No stridor. No respiratory distress. She has no wheezes. She has no rales. Abdominal: Soft. Bowel sounds are normal. She exhibits no distension and no mass. There is tenderness. There is no rebound and no guarding. Diffuse abdominal tenderness. Genitourinary: Genitourinary Comments: Patient gave verbal consent for pelvic exam. Patient is completely cooperative. Marixa Senior, female RN present for exam. Normal External Genitalia. No Lesions, Rashes, Folliculitis. Speculum Exam: No bleeding, discharge. Cervical os is closed. Bimanual Exam: Bilateral adnexal tenderness, no appreciable adnexal masses, questionable cervical motion tenderness. Patient feels like there is a lot of pressure with pelvic exam. Cultures have been obtained. Musculoskeletal: Normal range of motion. She exhibits no edema or tenderness. Lymphadenopathy: She has no cervical adenopathy. Neurological: She is alert and oriented to person, place, and time. Cranial nerves II-XII grossly intact. Sensory grossly intact. No tremors. Skin: Skin is warm and dry. No rash noted. No erythema. No pallor. Psychiatric: She has a normal mood and affect. Her behavior is normal. Judgment and thought content normal. Nursing note and vitals reviewed. Labs Reviewed WET PREPARATION - Abnormal; Notable for the following components: Result Value WBC, Wet Prep Many WBC's Seen (*) Clue Cells, Wet Prep Possible Clue Cells Seen (*) All other components within normal limits URINALYSIS - Abnormal; Notable for the following components: Clarity, Urine Hazy (*) Urobilinogen, Urine >=4.0 (*) Blood, Urine Large (*) Leukocyte Esterase, Urine Moderate (*) Bacteria, Urine Rare (*) Squamous Epithelial 5 (*) All other components within normal limits Narrative: Microscopic examination is performed on all urinalysis samples and only positive findings are reported. The test for blood on the chemical analytic portion of urinalysis may also be positive due to hemoglobinuria and myoglobinuria and if red blood cells are present they are quantified by microscopic examination. BASIC METABOLIC PANEL - Abnormal; Notable for the following components: Glucose 114 (*) BUN 7 (*) BUN/Creatinine Ratio 7.9 (*) All other components within normal limits Narrative: The eGFR should be used for monitoring renal function only and not for medication dosing. CBC WITH AUTO DIFFERENTIAL - Abnormal; Notable for the following components: RDW - CV 16.1 (*) All other components within normal limits HCG URINE, QUALITATIVE - Normal LIPASE - Normal HEPATIC FUNCTION PANEL - Normal CHLAMYDIA/GC/TRICHOMONAS AMPLIFIED RNA Narrative: The following orders were created for panel order Chlamydia/GC/Trichomonas Amplified RNA. Procedure Abnormality Status --------- ------ Chlamydia/Gonorrhoeae Am...[[id number]] In process Trichomonas vaginalis Am...[[id number]] In process Please view results for these tests on the individual orders. CHLAMYDIA/GONORRHOEAE AMPLIFIED RNA TRICHOMONAS VAGINALIS AMPLIFIED RNA CBC AND DIFFERENTIAL Narrative: The following orders were created for panel order CBC w/ Diff. Procedure Abnormality Status --------- ------ CBC Auto Differential[[id number]] Abnormal Final result Please view results for these tests on the individual orders. Radiographic Imaging (if any) During ED Visit CT Abdomen Pelvis With IV Contrast Only Final Result 1. No acute process in the abdomen or pelvis to explain patient's symptoms. 2. Previous cholecystectomy. 3. Normal appendix. 4. No nephro or ureterolithiasis. [facility] Workstation ID: [id number] Medications Ordered/Given During ED Visit Medications sodium chloride (PF) (NS) flush 5 mL (not administered) sodium chloride (PF) (NS) 0.9 % contrast line flush 10 mL (10 mL Intravenous Given 11/23/182) And sodium chloride (PF) (NS) 0.9 % contrast line flush 80 mL (80 mL Intravenous Given 11/23/18110) And iopamidol (ISOVUE-370) 76 % injection 75 mL (75 mL Intravenous Contrast Administered 11/23/18110) ketorolac (TORADOL) injection 15 mg (15 mg Intravenous Given 11/23/185) dicyclomine (BENTYL) capsule 20 mg (20 mg Oral Given 11/23/184) IMPRESSION/ ED COURSE Procedures This patient was also seen and examined by Dr. Boothe. CT abdomen pelvis with IV contrast was unremarkable. Patient had a lot of pressure with pelvic exam but she had no discharge and she had a questionable chandelier sign but I think was more due to pressure than anything else. Wet prep does show possible clue cells. Urinalysis shows large blood with moderate leukocytes and rare bacteria with 5 squamous epithelials but the patient said that she is been having vaginal bleeding. Patient was medicated with Bentyl and Toradol which seemed to help her abdominal pain. She does not have an PHOTOGRAPH PRINTER to follow-up so she was given the PHOTOGRAPH PRINTER clinic here to follow-up with as well as a prescription for Flagyl. She was discharged home in stable condition with computer instructions. . FINAL DIAGNOSIS SNOMED CT(R) 1. Bacterial vaginosis BACTERIAL VAGINOSIS New Prescriptions metroNIDAZOLE (FLAGYL) 500 MG tablet Take 1 (one) tablet (500 mg total) by mouth 2 (two) times a day with meals for 7 days . Ruel Ramirez PA-C 11/23/18 0348 Pt reports vaginal swelling that she first noticed today. Pt also reports upper and lower abdominal pain that radiates down to her vagina. Pt states pain in upper abdomen is minimal and worsens distally down her abdomen to her vagina. Pt reports hx of irregular menstrual cycle with last noted menstrual bleeding last week. Pt states she notices increased pressure in her vagina while urinating. Pt ambulates to triage c/o abdominal pain x 2 days, states her vagina is swollen . Pt states the last time my vagina was swollen, they found an infection in my body . Pt denies fevers. Notes hx of endometriosis. Pt states she is having severe lower abdominal pain and cramping radiating down to her vagina. in this encounter Emergency Department Note PCP - Physician No Chief Complaint Patient presents with Otalgia HPI This is a 23-year-old female comes into the emergency department with pain to both ears. Patient states the pain started Thursday. She does have a history of prior ear infections had tubes in her ears about 5 years ago. She has not been compliant with following up with ENT. Patient states the left ear is more tender than the right ear. She tried to rinse her ears out with peroxide and use a heating pad with little relief. She states she has had decreased hearing out of both of her ears. She also mentions as while she is here she would like to be treated for chlamydia and she also states she is out of her labetalol. Patient denies any recent URI did state that on Thursday she also felt like she had a sore throat. Review of Systems Constitutional: No unexplained weight change Skin: No easy bruising Respiratory: No stridor Eyes: No discharge HENT: No drooling, +bilateral ear pain, +decreased hearing. Genitourinary: No obstructive symptoms Endocrine: No polyphagia Neurologic: No facial asymmetry Hematologic/Lymphatic: No abnormal nodules Allergic/Immunologic: No urticaria Psychiatry: No self harm Family History Family History Problem Relation Age of Onset No Known Problems Mother No Known Problems Father No Known Problems Sister No Known Problems Brother Breast cancer Neg Hx Cancer Neg Hx Colon cancer Neg Hx Diabetes Neg Hx Ovarian cancer Neg Hx Stroke Neg Hx Uterine cancer Neg Hx Mental illness Neg Hx Hypertension Neg Hx Surgical complications Neg Hx Anesthesia problems Neg Hx Heart disease Neg Hx Clotting disorder Neg Hx Deep vein thrombosis Neg Hx Pulmonary embolism Neg Hx Social History Social History Socioeconomic History Marital status: Single Spouse name: Not on file Number of children: 0 Years of education: 12 Highest education level: Not on file Social Needs Financial resource strain: Not on file Food insecurity - worry: Not on file Food insecurity - inability: Not on file Transportation needs - medical: Not on file Transportation needs - non-medical: Not on file Occupational History Not on file Tobacco Use Smoking status: Current Every Day Smoker Packs/day: 0.50 Years: 5.00 Pack years: 2.50 Types: Cigarettes Smokeless tobacco: Never Used Substance and Sexual Activity Alcohol use: Yes Alcohol/week: 0.0 oz Comment: rare Drug use: Yes Types: Marijuana Comment: ocasionally Sexual activity: Yes Partners: Male control/protection: None Other Topics Concern Not on file Social History Narrative Lives with mother, 3 sisters and mothers boyfriend Allergies No Known Allergies Medications Karine Bauer Home Medication Instructions Prior to Surgery JORDANA:[id number] Printed on:01/03/19 5058 Medication Information Take last dose on Take the morning of surgery Comment(s) acetaminophen (TYLENOL) 325 MG tablet Take 650 mg by mouth every 6 (six) hours as needed for pain. blood pressure monitor Kit 1 each by Miscellaneous route daily. Labs Reviewed - No data to display Radiographic Imaging (if any) During ED Visit No orders to display Medications Ordered/Given During ED Visit Medications cefTRIAXone IM (ROCEPHIN) injection 250 mg (not administered) azithromycin (ZITHROMAX) tablet 1,000 mg (1,000 mg Oral Given 01/03/192117) Procedures Physical Exam BP (!) 155/94 (BP Location: Right arm, Patient Position: Sitting) Pulse 86 Temp 98.3 F (36.8 C) (Oral) Resp 15 Ht 5' 6 Wt 96.2 kg (212 lb) SpO2 100% BMI 34.22 kg/m Vital Signs During ED Visit (as charted by nursing) Patient Vitals for the past 24 hrs: BP Temp Temp src Pulse Resp SpO2 Height Weight 01/03/192055 (!) 155/94 98.3 F (36.8 C) Oral 86 15 100 % 5' 6 96.2 kg (212 lb) Physical Exam Constitutional: She is oriented to person, place, and time. She appears well-developed. No distress. HENT: Head: Normocephalic and atraumatic. Right Ear: Tympanic membrane is erythematous and retracted. Decreased hearing is noted. Left Ear: There is drainage. Tympanic membrane is scarred, erythematous and retracted. Decreased hearing is noted. Nose: Nose normal. Mouth/Throat: Oropharynx is clear and moist. No oropharyngeal exudate. Eyes: Pupils are equal, round, and reactive to light. Cardiovascular: Normal rate, regular rhythm, normal heart sounds and intact distal pulses. Pulmonary/Chest: Effort normal and breath sounds normal. Musculoskeletal: Normal range of motion. Lymphadenopathy: She has cervical adenopathy. Neurological: She is alert and oriented to person, place, and time. Skin: Skin is warm and dry. She is not diaphoretic. Psychiatric: She has a normal mood and affect. Her behavior is normal. Judgment and thought content normal. Nursing note and vitals reviewed. Past Medical History Past Medical History: Diagnosis Date Bacterial vaginosis Cholelithiasis Endometriosis Gonorrhea Hypertension Leg fracture, right Morbid obesity with BMI of 40.0-44.9, adult (HCC) PID (pelvic inflammatory disease) depression 01/30/2016 meds in past-- resolved Tobacco Abuse Tobacco Abuse Trauma fell roller skating and broke ankle Varicella childhood Past Surgical History Past Surgical History: Procedure Laterality Date SECTION N/A 01/12/2016 Procedure: SECTION; Surgeon: Chioma Burleson MD; Location: [facility] OB OR; Service: CHOLECYSTECTOMY LAPAROSCOPIC N/A 08/21/2017 Procedure: CHOLECYSTECTOMY LAPAROSCOPIC; Surgeon: Quan Ramsey III, MD; Location: [facility] Main OR; Service: General Surgery D&C (DIL & CURETTAGE, SHARP W/ SUCTION) x2 EAR TUBE Bilateral ORIF ANKLE FRACTURE Right 09/02/2015 Procedure: ORIF RIGHT ANKLE FRACTURE; Surgeon: Saad Chavez MD; Location: [facility] Main OR; Service: tubes in ears WISDOM TOOTH EXTRACTION MEDICAL DECISION MAKING . 23-year-old female comes into the emergency department bilateral ear pain. Patient does have history of previous ear infections. Patient's ears do show otitis media bilaterally she also has an otitis externa to the left ear. She does have scarring to her left ear. We will go ahead and treat her with antibiotics for 10 days refer her to ENT. Patient is also requesting to be treated for chlamydia as she was diagnosed at [place] on November 23. I did offer her azithromycin and Rocephin she declined the Rocephin. Patient will also be given a refill of her labetalol. She is to make sure her partner is also treated. She is agreeable to treatment plan she was discharged home in stable condition. I counseled patient regarding warnings/adverse affects associated with all medications I have provided/prescribed today. If opioids were provided/prescribed, I have discussed the risks and benefits, including the risks of addiction and overdose associated with a controlled substance containing an opioid, with patient. Erma Dumont PA-C 01/03/192131 PT REFUSED THE CEFTRIAXONE PT SAID SHE BOTH EARS ARE HURTING FOR ABOUT A WEEK. documented in this encounter [facility] ED Attending Note: NAME: Karine Pacheco Juancarlos 24 y.o. CSN: [id number] PCP: Physician No History: Chief Complaint: Eye Drainage and Abscess HPI: HPI The history was obtained from the patient. She is a 24 y.o. female who presents with a chief complaint of Eye Drainage and Abscess, which she has had for 2 days. Patient presents for evaluation of 2 hours of right eye redness, discomfort. She denies any visual blurriness or changes. She denies any trauma. She reports she had purulent discharge. She does wear contacts. Patient also incidentally notes abscess area on the left thigh which she has had for the past 4 days and did rupture on its own. It drained. She denies fever chills or any other systemic symptoms. PMHx: Past Medical History: Diagnosis Date Bacterial vaginosis Cholelithiasis Endometriosis Gonorrhea Hypertension Leg fracture, right Morbid obesity with BMI of 40.0-44.9, adult (HCC) PID (pelvic inflammatory disease) depression 01/30/2016 meds in past-- resolved Tobacco Abuse Tobacco Abuse Trauma fell roller skating and broke ankle Varicella childhood PMSx: Past Surgical History: Procedure Laterality Date SECTION N/A 01/12/2016 Procedure: SECTION; Surgeon: Chioma Burleson MD; Location: [facility] OB OR; Service: CHOLECYSTECTOMY LAPAROSCOPIC N/A 08/21/2017 Procedure: CHOLECYSTECTOMY LAPAROSCOPIC; Surgeon: Quan Ramsey III, MD; Location: [facility] Main OR; Service: General Surgery D&C (DIL & CURETTAGE, SHARP W/ SUCTION) x2 EAR TUBE Bilateral ORIF ANKLE FRACTURE Right 09/02/2015 Procedure: ORIF RIGHT ANKLE FRACTURE; Surgeon: Saad Chavez MD; Location: [facility] Main OR; Service: tubes in ears WISDOM TOOTH EXTRACTION FAM. Hx: Family History Problem Relation Age of Onset No Known Problems Mother No Known Problems Father No Known Problems Sister No Known Problems Brother Breast cancer Neg Hx Cancer Neg Hx Colon cancer Neg Hx Diabetes Neg Hx Ovarian cancer Neg Hx Stroke Neg Hx Uterine cancer Neg Hx Mental illness Neg Hx Hypertension Neg Hx Surgical complications Neg Hx Anesthesia problems Neg Hx Heart disease Neg Hx Clotting disorder Neg Hx Deep vein thrombosis Neg Hx Pulmonary embolism Neg Hx SOC. Hx: Social History Socioeconomic History Marital status: Single Spouse name: Not on file Number of children: 0 Years of education: 12 Highest education level: Not on file Occupational History Not on file Social Needs Financial resource strain: Not on file Food insecurity Worry: Not on file Inability: Not on file Transportation needs Medical: Not on file Non-medical: Not on file Tobacco Use Smoking status: Current Every Day Smoker Packs/day: 0.50 Years: 5.00 Pack years: 2.50 Types: Cigarettes Smokeless tobacco: Never Used Substance and Sexual Activity Alcohol use: Yes Alcohol/week: 0.0 standard drinks Comment: rare Drug use: Yes Types: Marijuana Comment: ocasionally Sexual activity: Yes Partners: Male control/protection: None Lifestyle Physical activity Days per week: Not on file Minutes per session: Not on file Stress: Not on file Relationships Social connections Talks on phone: Not on file Gets together: Not on file Attends jewish service: Not on file Active member of club or organization: Not on file Attends meetings of clubs or organizations: Not on file Relationship status: Not on file Other Topics Concern Not on file Social History Narrative Lives with mother, 3 sisters and mothers boyfriend MEDs: No current facility-administered medications for this encounter. Current Outpatient Medications Medication Sig Dispense Refill acetaminophen (TYLENOL) 325 MG tablet Take 650 mg by mouth every 6 (six) hours as needed for pain. blood pressure monitor Kit 1 each by Miscellaneous route daily. 1 each 0 doxycycline hyclate (VIBRA-TABS) 100 MG tablet Take 1 (one) tablet (100 mg total) by mouth 2 (two) times a day for 7 days . 14 tablet 0 labetalol (NORMODYNE) 200 MG tablet Take 2.5 tablets (500 mg total) by mouth every 12 (twelve) hours. 75 tablet 1 labetalol (NORMODYNE) 200 MG tablet Take 2.5 (two and a half) tablets (500 mg total) by mouth 2 (two) times a day . 150 tablet 0 levoFLOXacin (QUIXIN) 0.5 % ophthalmic solution Administer 1 (one) drop to the right eye every 2 (two) hours While awake for 2 days, then every 4 hours while awake for 5 days . 5 mL 0 ALL: No Known Allergies ROS: Review of Systems . 10 systems reviewed, pertinent positives and negatives documented in HPI, remaining ROS is normal. Physical Exam: Patient Vitals for the past 24 hrs: BP Temp Temp src Pulse Resp SpO2 Height Weight 11/27/19 0243 (!) 144/95 98.3 F (36.8 C) Oral 96 16 96 % 5' 6 99.8 kg (220 lb) Physical Exam Constitutional: Awake and alert. Appears well-developed and well-nourished. No acute distress HENT: No nasal congestion Head: Normocephalic and atraumatic. Eyes: Right conjunctival injection, no active drainage and EOM are normal. Pupils are equal, round, and reactive to light. Neck: Normal range of motion. Neck supple. Cardiovascular: Normal rate, regular rhythm and intact distal pulses. Pulmonary/Chest: Effort normal and breath sounds normal. No adventitious sounds Abdominal: Soft. Nontender, nondistended. Musculoskeletal: Normal range of motion. No obvious deformities Lymphadenopathy: no cervical adenopathy. Neurological: alert and oriented to person, place, and time. ambulates with steady gait Skin: Skin is warm and dry. No rash noted. Left thigh area of induration, but no fluctuance, mildly tender Psychiatric: normal mood and affect. behavior is normal. Judgment normal. Laboratory & Radiological Imaging (if done): Labs Reviewed - No data to display No orders to display ED Course / Medical Decision Making: ED Course as of Nov 26 253 Sun Nov 27, 2019 0253 Patient with normal visual acuity and conjunctivitis. She is a contact wearer. Placed on Levaquin eyedrops for this and told not to wear contacts.Patient has indurated area on the left thigh, no fluctuant area, recommended warm compresses and p.o. antibiotics. Return precautions given. [WL] ED Course User Index [WL] Damien Orozco DO Clinical Impression: 1. Acute conjunctivitis of right eye, unspecified acute conjunctivitis type 2. Leg abscess Damien Orozco DO ED Attending Physician [facility] Emergency Department Damien Orozco DO 11/27/19 0255 Patient with right eye redness x 2 hours states that she rubs her eyes when she is anxious. Patient also complains of ruptured abscess to left groin x 4 days. Denies fever. documented in this encounter FOR RECORDS PERTAINING TO PATIENTS WHO ARE OR HAVE BEEN ENROLLED IN A CHEMICAL DEPENDENCY/SUBSTANCEABUSE PROGRAM, SOME INFORMATION MAY BE OMITTED. This clinical summary was aggregated from multiple sources. Caution should be exercised in using it in the provision of clinical care. This summary normalizes information from multiple sources, and as a consequence, information in this document may materially change the coding, format and clinical context of patient data. In addition, data may be omitted in some cases. CLINICAL DECISIONS SHOULD BE BASED ON THE PRIMARY CLINICAL RECORDS. [facility]. provides no warranty or guarantee of the accuracy or completeness of information in this document.
[2024-07-22 10:31] LABS: HCG Qualitative Urine* NEGATIVE (NEGATIVE); Internal Control Within Normal Limits
[2024-07-22] MEDS: KETOROLAC TROMETHAMINE 30 MG/ML VIAL 15 MG IM (10:53)
--- NOTE | 2024-07-22 10:54 | ED_ITS ---
HPI HPI - General Adult General Chief complaint: Headache Stated complaint: HEADACHE Time Seen by Provider: 07/22/24 10:12 Source: patient Mode of arrival: walk-in History of Present Illness HPI narrative: The patient is coming to us with almost 7 days history of headache is mostly left-sided associated with some nausea, the patient denies a photosensitivity she also denies any blurry vision The patient has not been to a physician for the last 4 years she mentioned that she had a history of preeclampsia and she is worried that she could be The patient denies any other concerns She did take some ibuprofen earlier this morning Related Data Home Medications ?Medication ?Instructions ?Recorded ?Confirmed No Known Home Medications 07/22/24 07/22/24 Allergies Allergy/AdvReac Type Severity Reaction Status Date / Time No Known Drug Allergies Allergy Verified 09/25/23 14:05 Opioid HPI Opioid Management Most Recent Opioid Data: Last Pain Scale 10 09/25/23 15:33 09/25/23 Review of Systems ROS Status of ROS 10 or more systems reviewed and unremark able except as noted in history and below PFSH PFSH Social History Smoking status: Current every day smoker Little interest or pleasure in doing things: not at all Feeling down, depressed, or hopeless: not at all Exam Narrative Exam Narrative: Nurses notes and vital signs reviewed and patient is not hypoxic. General: Well-appearing and in no apparent distress. Skin: Warm, dry, no pallor noted. No rash. Head: Normocephalic, atraumatic. Neck: Supple, non-tender. Eye: Pupils are equal, round and EOMI. No scleral icterus. Ears, Nose, Mouth, and Throat: TM are clear, no nasal mucosal hypertrophy. Oral mucosa is moist, no posterior oropharynx erythema, uvula is mid-line Cardiovascular: Regular Rate and Rhythm without murmur, gallop or rub. Respiratory: No accessory muscle use or respiratory distress. Lungs are clear to auscultation, no wheezing, rales or rhonchi Chest Wall: no tenderness Back: No midline thoracic or lumbar vertebral tenderness. No CVA tenderness Musculoskeletal: normal ROM, no calf or popliteal tenderness, no lower extremity edema/swelling GI: Abdomen is soft, non-distended. Normal bowel sounds. No masses appreciated. No tenderness to palpation. No rebound, guarding, or rigidity noted. Neurological: A&O x4. No cranial nerve dysfunction observed. No truncal ataxia. Moves all extremities. Sensation intact. Psychiatric: Cooperative and interactive. Normal mood and affect. Constitutional Vital Signs, click to edit/add: Last Vital Signs Temp 98.8 F 07/22/24 10:03 Pulse 82 07/22/24 10:03 Resp 16 07/22/24 10:03 BP 141/93 H 07/22/24 10:03 Pulse Ox 100 07/22/24 10:16 O2 Del Method Room Air 07/22/24 10:16 Course Vital Signs Vital signs: Vital Signs Temperature 98.8 F 07/22/24 10:03 Pulse Rate 82 07/22/24 10:03 Respiratory Rate 16 07/22/24 10:03 Blood Pressure 141/93 H 07/22/24 10:03 Pulse Oximetry 100 07/22/24 10:03 Oxygen Delivery Method Room Air 07/22/24 10:03 Temperature 98.8 F 07/22/24 10:03 Pulse Rate 82 07/22/24 10:03 Respiratory Rate 16 07/22/24 10:03 Blood Pressure 141/93 H 07/22/24 10:03 Pulse Oximetry 100 07/22/24 10:16 Oxygen Delivery Method Room Air 07/22/24 10:16 Medical Decision Making MDM Narrative Medical decision making narrative: test is negative The patient was provided with Toradol and Compazine after which she was monitored and she was discharged when she is feeling better to follow-up with primary care as outpatient The patient is to follow up with primary care physician in next 2-3 days or to return to the emergency department should any of the signs or symptoms worsen or new symptoms develop. The patient agrees with the following Diagnosis and Treatment plan and the patient will be discharged home. Lab Data Labs: Lab Results 07/22/24 Range/Units 10:10 Urine HCG, Qual Negative (NEGATIVE) Discharge Plan Discharge Chief Complaint: Headache Clinical Impression: Migraine Patient Disposition: Home, Self-Care Time of Disposition Decision: 10:38 Condition: Good Prescriptions / Home Meds: No Action No Known Home Medications Print Language: Puerto Rican Instructions: Migraine Headache (ED) Referrals: Physician,Non-Staff, MD [Primary Care Provider] - 1 week
[2024-07-22] MEDS: PROCHLORPERAZINE 10 MG/2 ML VIAL 5 MG IM (10:56)
--- NOTE | 2024-07-22 13:21 | PC.NURSE ---
1230: I called this patient back at request of administration. Pt reports she is no better and tearful. Feels that she should have a CT of the head. I encouraged her to return to the ER if no better. She reports she was given a list of physicans to follow up with.
== END 2024-07-22 11:37 | disposition home or self-care (01) ==
PROVIDERS: Emergency Provider Emergency Medicine
DX: G43.909 Migraine, unspecified, not intractable, without status migrainosus (principal); F17.200 Nicotine dependence, unspecified, uncomplicated
CPT/HCPCS: 84703; 96372; 99284; J0780; J1885